=== PATIENT | female | born 1935 | race Caucasian/White ===

== ENCOUNTER → 2022-02-18 | Outpatient (CLI) | payer MEDICARE ==
--- NOTE | 2022-02-18 15:52 | XR ---
EXAMINATION TYPE: XR chest 2V DATE OF EXAM: 02/18/2022 COMPARISON: None INDICATION: Short of breath TECHNIQUE: Frontal and lateral views of the chest are obtained. FINDINGS: The heart size is normal. The pulmonary vasculature is normal. The lungs are clear. IMPRESSION: 1. No acute pulmonary process.
== END | disposition home or self-care (01) ==
LOC: RADXRMAIN 15:33
PROVIDERS: ATTEND Internal Medicine
DX: R06.02 Shortness of breath (principal)
CPT/HCPCS: 71046

== ENCOUNTER 2022-03-08 09:13 | Day surgery (SDC) | payer BC ==
[2022-03-07 11:59] VITALS: BMI 31.4
[~2022-03-08 09:13] MED LIST: LACTATED RINGERS 1,000 ML IV SCH
[2022-03-08 09:43] VITALS: TEMP 97
[2022-03-08] MEDS ORDERED: LIDOCAINE 1% (10MG/ML) FOR IV START INTRADERMA ONE (09:51)
[2022-03-08] MEDS ORDERED: PROPOFOL 10 MG/ML 20 ML VIAL IV ONE (10:37)
[2022-03-08] MEDS ORDERED: LIDOCAINE 2% INJ 20 MG/ML (2 ML VIAL) ONE (10:37)
--- NOTE | 2022-03-08 10:45 | P.PCN ---
Date of Procedure: 03/08/22 Procedure(s) Performed: BRIEF HISTORY: Patient is a 86-year-old, pleasant, white female scheduled for an upper endoscopy as a part of evaluation of intermittent dysphagia to solids for the last 6 months duration. She recently had an upper GI series done that showed evidence of dilated esophagus with esophageal stasis suspicious for esophageal achalasia. She is hence scheduled for an upper endoscopy to evaluate further. PROCEDURE PERFORMED: Esophagogastroduodenoscopy with biopsy. PREOPERATIVE DIAGNOSIS: Intermittent dysphagia to solids for the last 6 months duration. IV sedation per anesthesia. PROCEDURE: After informed consent was obtained, the patient was brought into the endoscopy unit. IV sedation was administered by Anesthesia under continuous monitoring. Initially the Olympus GIF-140 video endoscope was inserted into the mouth. Esophagus intubated without any difficulty. It was gradually advanced into the stomach and duodenum and carefully examined. The bulb and the second part of the duodenum appeared normal. The scope at this time was withdrawn to the stomach, adequately insufflated with air, and upon careful examination, mucosa of the antrum, had mild antral gastritis and biopsies were done from this area. The body, cardia and the fundus appeared normal. The scope was then withdrawn into the esophagus. The GE junction was located at 39 cm from the incisors. Small sliding Hiatal hernia noted. The esophagus appeared normal. There were no evidence of esophageal stricture, erosions or ulcerations seen. Biopsies were done from the distal esophagus and the patient tolerated the procedure well. IMPRESSION: 1. Normal-appearing esophagus with no evidence of esophagitis or esophageal stricture. 2. Small hiatal hernia. 3. Mild antral gastritis RECOMMENDATIONS: The findings of this examination were discussed with the patient as well as a family. She was advised to follow with the biopsy results. She will continue with Protonix 40 mg daily and follow antireflux measures..
[2022-03-08 11:18] VITALS: BP 129/76; PULSE 60; RESP 18
== END 2022-03-08 12:00 | disposition home or self-care (01) ==
LOC: ORWHC2ENDO 09:13
PROVIDERS: ATTEND Internal Medicine Gastroenterology
DX: K29.50 Unspecified chronic gastritis without bleeding (principal); K44.9 Diaphragmatic hernia without obstruction or gangrene; I25.10 Atherosclerotic heart disease of native coronary artery without angina pectoris; I48.91 Unspecified atrial fibrillation; Z79.82 Long term (current) use of aspirin; Z79.01 Long term (current) use of anticoagulants; Z79.899 Other long term (current) drug therapy; Z82.49 Family history of ischemic heart disease and other diseases of the circulatory system; Z95.5 Presence of coronary angioplasty implant and graft
CPT/HCPCS: 43239; J2704; J2001; 88305; 88342

== ENCOUNTER → 2022-03-16 | Outpatient (CLI) | payer MEDICARE ==
[2022-03-17 02:07] LABS: African American GFR (CKD) 53.4 (60.0-200.0); Anion Gap 13.4 mmol/L (10.00-18.00); Blood Urea Nitrogen 19.8 mg/dL (9.0-27.0); Calcium 9.8 mg/dL (8.7-10.3); Carbon Dioxide 30.6 mmol/L (20.0-27.5); Magnesium 2.2 mg/dL (1.5-2.4); Non-African American GFR(CKD) 46.1 (60.0-200.0); Potassium 3.3 mmol/L (3.5-5.5)
== END | disposition home or self-care (01) ==
LOC: LABWHC1 14:12
PROVIDERS: ATTEND Internal Medicine Clinical Cardiac Electrophysiology
DX: I50.9 Heart failure, unspecified (principal)
CPT/HCPCS: 36415; 80048; 83735

== ENCOUNTER 2023-01-18 19:52 | Observation (INO) | payer MEDICARE ==
[2023-01-18 20:57] LABS: Basophils % (A) 0 %; Eosinophils # (A) 0.1 k/uL (0-0.7); Eosinophils % (A) 2 %; HCT 34.4 % (34.0-46.0); HGB 11.5 gm/dL (11.4-16.0); Lymphocytes # (A) 1.4 k/uL (1.0-4.8); Lymphocytes % (A) 21 %; MCH 27.9 pg (25.0-35.0); MCHC 33.4 g/dL (31.0-37.0); MCV 83.6 fL (80.0-100.0); Mean Platelet Volume 6.9; Monocytes # (A) 0.4 k/uL (0-1.0); Monocytes % (A) 6 %; Neutrophils # (A) 4.5 k/uL (1.3-7.7); Neutrophils % (A) 67 %; Platelet Count 381 k/uL (150-450); RBC 4.12 m/uL (3.80-5.40); RDW 15.8 % (11.5-15.5); WBC 6.8 k/uL (3.8-10.6)
[2023-01-18 21:07] LABS: Albumin 3.9 g/dL (3.5-5.0); Calcium 9.4 mg/dL (8.4-10.2); Magnesium 2.1 mg/dL (1.6-2.3); Potassium 4.3 mmol/L (3.5-5.1); Total Bilirubin 0.7 mg/dL (0.2-1.3); Total Protein 6.6 g/dL (6.3-8.2)
--- NOTE | 2023-01-18 21:11 | XR ---
EXAMINATION TYPE: XR chest 2V DATE OF EXAM: 01/18/2023 8:59 PM COMPARISON: Chest radiographs from 10/09/2022 TECHNIQUE: XR chest 2V Frontal and lateral views of the chest. CLINICAL INDICATION:Female, 87 years old with history of dysrhythmia; FINDINGS: Lungs/Pleura: There is flattening of the diaphragm with increased lucency of the lungs. No evidence o f pneumothorax, pleural effusion or focal consolidation. Pulmonary vascularity: Unremarkable. Heart/mediastinum: Cardiomediastinal silhouette is unremarkable. Atherosclerotic calcifications are seen in the aorta. Musculoskeletal: No acute osseous pathology. Mild degenerative changes of the thoracic spine. IMPRESSION: 1. No acute cardiopulmonary disease process. 2. COPD changes.
[2023-01-18 21:13] LABS: Partial Thromboplastin Time 24.1 sec (22.0-30.0); Prothrombin Time 10.2 sec (9.0-12.0)
--- NOTE | 2023-01-18 22:17 | ED ---
Arrhythmia/Palpitations HPI - General Chief Complaint: Arrhythmia/Palpitations Stated Complaint: afib Time Seen by Provider: 01/18/23 20:39 Source: patient, RN notes reviewed, old records reviewed Mode of arrival: wheelchair Limitations: no limitations - History of Present Illness Initial Comments: This is a well-appearing 87-year-old female that presents with complaints of palpitations that started around 6 PM while at dinner. States that her watch was reading a rate of 147 and then dropped to 50. At that time she felt dizzy and lightheaded. She states that she has chronic shortness of breath that is always worse with exertion and improves with rest. She has had 2 histories of ablations 1 year ago in [place] and another one in September of this year with Dr. Feliz. She does take elquis daily. [facility] has seen Dr. Maddox and has had pulmonary causes of her shortness of breath ruled out. Denies any chest pain. No fevers. No cough. No nausea vomiting or diarrhea. MD Complaint: rapid heart beat, palpitations, irregular heart beat, atrial fibrillation -: hour(s) (4) Context: occurred during exertion Arrhythmia History: atrial fibrillation, history of ablation Associated Symptoms: shortness of breath (with exertion) - Related Data Home Medications Medication Instructions Recorded Confirmed Apixaban [Eliquis] 5 mg PO BID 03/07/22 01/18/23 Furosemide [Lasix] 20 mg PO DAILY 03/07/22 01/18/23 Pantoprazole [Protonix] 40 mg PO DAILY 03/07/22 01/18/23 Ezetimibe [Zetia] 10 mg PO HS 09/28/22 01/18/23 Aspirin EC [Ecotrin Low Dose] 81 mg PO DAILY 01/18/23 01/18/23 Furosemide [Lasix] 40 mg PO DAILY PRN 01/18/23 01/18/23 Isosorbide Mononitrate ER [Imdur] 30 mg PO DAILY 01/18/23 01/18/23 Levothyroxine Sodium [Synthroid] 25 mcg PO DAILY 01/18/23 01/18/23 Nitroglycerin Sl Tabs [Nitrostat] 0.4 mg SUBLINGUAL Q5M PRN 01/18/23 01/18/23 Previous Rx's Medication Instructions Recorded Potassium Chloride ER [K-Dur 10] 10 meq PO DAILY 30 Days #30 tab 02/21/23 Allergies Allergy/AdvReac Type Severity Reaction Status Date / Time [id number] Reductase AdvReac muscle Verified 01/18/23 21:15 Inhibitor weakness Review of Systems ROS Statement: Those systems with pertinent positive or pertinent negative responses have been documented in the HPI. ROS Other: All systems not noted in ROS Statement are negative. Past Medical History Past Medical History: Atrial Fibrillation, Hypertension Additional Past Medical History / Comment(s): Hypotension, COVID 04/11 History of Any Multi-Drug Resistant Organisms: None Reported Past Surgical History: Ablation, Cardiac Ablation, Cholecystectomy, Heart Catheterization With Stent, Orthopedic Surgery Additional Past Surgical History / Comment(s): Cardiac Ablation: Jul 2021 Past Anesthesia/Blood Transfusion Reactions: No Reported Reaction Date of Last Stent Placement:: 2013 Past Psychological History: No Psychological Hx Reported Smoking Status: Never smoker Past Alcohol Use History: Rare Past Drug Use History: None Reported - Past Family History Mother Family Medical History: Deep Vein Thrombosis (DVT), Pulmonary Embolus Additional Family Medical History / Comment(s): young at 52 with a "blood clot in the heart" Father Family Medical History: AFIB, Diabetes Mellitus Additional Family Medical History / Comment(s): Lived to be 93 General Exam Limitations: no limitations General appearance: alert, in no apparent distress Head exam: Present: atraumatic Eye exam: Present: normal appearance. Absent: scleral icterus, conjunctival injection, periorbital swelling ENT exam: Present: mucous membranes moist Neck exam: Present: full ROM. Absent: tenderness, meningismus Respiratory exam: Present: normal lung sounds bilaterally. Absent: respiratory distress, chest wall tenderness, accessory muscle use Cardiovascular Exam: Present: tachycardia GI/Abdominal exam: Present: soft. Absent: distended, tenderness, guarding, rebound, rigid Neurological exam: Present: alert, oriented X3 Psychiatric exam: Present: normal affect, normal mood Skin exam: Present: warm, dry, normal color. Absent: cyanosis, diaphoretic, petechiae, pallor Course Vital Signs 01/18/23 01/18/23 01/18/23 20:07 20:45 22:00 Temperature 97.9 F Pulse Rate 108 H 110 H Pulse Rate [ 107 H Heel Sewer ] Respiratory 20 18 Rate Blood Pressure 104/67 129/76 O2 Sat by Pulse 99 98 Oximetry EKG Findings - EKG Comments: EKG Findings:: EKG interpreted by me shows atrial flutter 2-1 with a ventricular rate of 115, QRS 0.83, QTC 0.347, normal axis - EKG Results: EKG: interpreted by [facility] Medical Decision Making - Medical Decision Making Was pt. sent in by a medical professional or institution (, PA, LOCKSTITCH SHOULDER JOINER, urgent care, hospital, or [facility]...) When possible be specific @ -No Did you speak to anyone other than the patient for history (EMS, parent, family, police, friend...)? What history was obtained from this source @ -No Did you review nursing and triage notes (agree or disagree)? Why? @ -I reviewed and agree with nursing and triage notes Were old charts reviewed (outside hosp., previous admission, EMS record, old EKG, old radiological studies, urgent care reports/EKG's, chcf records)? Report findings @ -Old EKG, sales and production manager notes 09/27/2022 for cardiac ablation Differential Diagnosis (chest pain, altered mental status, abdominal pain women, abdominal pain men, vaginal bleeding, weakness, fever, dyspnea, syncope, headache, dizziness, GI bleed, back pain, seizure, CVA, palpatations, mental health, musculoskeletal)? @ -Differential Palpitations Ventricular arrhythmias, atrial arrhythmias, myocardial infarction, anemia, thyrotoxicosis, electrolyte imbalance, hypokalemia, pulmonary embolism, pulmonary disease, drugs, alcohol, anxiety, stress.... This is not meant to be an all-inclusive list. EKG interpreted by me (3pts min.). @ -yes, EKG interpreted by me shows atrial flutter 2-1 with a ventricular rate of 115, QRS 0.83, QTC 0.347, normal axis X-rays interpreted by me (1pt min.). @ -Chest x-ray interpreted by me shows no consolidation. CT interpreted by me (1pt min.). @ -None done U/S interpreted by me (1pt. min.). @ -None done What testing was considered but not performed or refused? (CT, X-rays, U/S, labs)? Why? @ -None What meds were considered but not given or refused? Why? @ -Cardizem was considered however patient's rate is controlled Did you discuss the management of the patient with other professionals (professionals i.e. , PA, LOCKSTITCH SHOULDER JOINER, lab, RT, psych nurse, clinical social worker, on site manager, teacher, fiscal officer, disability case manager)? Give summary @ -No Was smoking cessation discussed for >3mins.? @ -No Was critical care preformed (if so, how long)? @ -No Were there social determinants of health that impacted care today? How? (Homelessness, low income, unemployed, alcoholism, drug addiction, transportation, low edu. Level, literacy, decrease access to med. care, halfway, rehab)? @ -No Was there de-escalation of care discussed even if they declined (Discuss DNR or withdrawal of care, Hospice)? DNR status @ -No What co-morbidities impacted this encounter? (DM, HTN, Smoking, COPD, CAD, Cancer, CVA, ARF, Chemo, Hep., AIDS, mental health diagnosis, sleep apnea, morbid obesity)? @ -Atrial fibrillation, hypertension Was patient admitted / discharged? Hospital course, mention meds given and route, prescriptions, significant lab abnormalities, going to OR and other pertinent info. @ -Admitted 87-year-old female presents with palpitations that started around 6 PM while at dinner. States that her watch was reading a rate of 147 and then dropped to 50. At that time she felt dizzy and lightheaded. She states that she has chronic shortness of breath that is always worse with exertion and improves with rest. She has had 2 histories of ablations 1 year ago in [place] and another one in September of this year with Dr. Feliz. She does take elquis daily. [facility] has seen Dr. Maddox and has had pulmonary causes of her shortness of breath ruled out. Denies any chest pain. No fevers. No cough. No nausea vomiting or diarrhea. Chest x-ray interpreted by me shows no consolidation. Radiologist interpretation no acute cardiopulmonary disease or process. COPD changes. EKG interpreted by me shows atrial flutter 2-1 with a ventricular rate of 115, QRS 0.83, QTC 0.347, normal axis EKG 10/09/2022 shows sinus rhythm Patient underwent ablation with Dr. Feliz 09/27/2022. 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 Labs today show no evidence of leukocytosis. Electrolytes are unremarkable. Tr oponin is negative at 0.012. TSH is normal limits at 4.2 Patient states has had intermittent palpitations while in the emergency room but denies any chest pain or shortness of breath. She is agreeable to observation. Patient will be placed in observation with cardiology consult case discussed with Dr. Ayala Undiagnosed new problem with uncertain prognosis? @ -No Drug Therapy requiring intensive monitoring for toxicity (Heparin, Nitro, In sulin, Cardizem)? @ -No Were any procedures done? @ -No Diagnosis/symptom? @ -Atrial flutter with rapid ventricular rate, shortness of breath Acute, or Chronic, or Acute on Chronic? @ -Acute on chronic Uncomplicated (without systemic symptoms) or Complicated (systemic symptoms)? @ -Uncomplicated Side effects of treatment? @ -No Exacerbation, Progression, or Severe Exacerbation? @ -No Poses a threat to life or bodily function? How? (Chest pain, USA, ME, pneumonia, PE, COPD, DKA, ARF, appy, cholecystitis, CVA, Diverticulitis, Homicidal, Suicidal, threat to staff... and all critical care pts) @ -No - Lab Data Result diagrams: 01/18/23 20:45 01/18/23 20:45 Lab Results 01/18/23 01/18/23 01/18/23 Range/Units 20:45 20:45 20:45 WBC (3.8-10.6) k/uL RBC (3.80-5.40) m/uL Hgb (11.4-16.0) gm/dL Hct (34.0-46.0) % MCV (80.0-100.0) fL MCH (25.0-35.0) pg MCHC (31.0-37.0) g/dL RDW (11.5-15.5) % Plt Count (150-450) k/uL MPV Neutrophils % % Lymphocytes % % Monocytes % % Eosinophils % % Basophils % % Neutrophils # (1.3-7.7) k/uL Lymphocytes # (1.0-4.8) k/uL Monocytes # (0-1.0) k/uL Eosinophils # (0-0.7) k/uL Basophils # (0-0.2) k/uL PT 10.2 (9.0-12.0) sec INR 1.0 (<1.2) APTT 24.1 (22.0-30.0) sec Sodium 134 L (137-145) mmol/L Potassium 4.3 (3.5-5.1) mmol/L Chloride 100 (98-107) mmol/L Carbon Dioxide 22 (22-30) mmol/L Anion Gap 12 mmol/L BUN 21 H (7-17) mg/dL Creatinine 0.98 (0.52-1.04) mg/dL Est GFR (CKD-EPI)AfAm 61 (>60 ml/min/1.73 sqM) Est GFR (CKD-EPI)NonAf 53 (>60 ml/min/1.73 sqM) Glucose 108 H (74-99) mg/dL Calcium 9.4 (8.4-10.2) mg/dL Magnesium 2.1 (1.6-2.3) mg/dL Total Bilirubin 0.7 (0.2-1.3) mg/dL AST 27 (14-36) U/L ALT 21 (4-34) U/L Alkaline Phosphatase 114 (38-126) U/L Troponin I <0.012 (0.000-0.034) ng/mL Total Protein 6.6 (6.3-8.2) g/dL Albumin 3.9 (3.5-5.0) g/dL TSH 4.200 (0.465-4.680) mIU/L 01/18/23 Range/Units 20:45 WBC 6.8 (3.8-10.6) k/uL RBC 4.12 (3.80-5.40) m/uL Hgb 11.5 (11.4-16.0) gm/dL Hct 34.4 (34.0-46.0) % MCV 83.6 (80.0-100.0) fL MCH 27.9 (25.0-35.0) pg MCHC 33.4 (31.0-37.0) g/dL RDW 15.8 H (11.5-15.5) % Plt Count 381 (150-450) k/uL MPV 6.9 Neutrophils % 67 % Lymphocytes % 21 % Monocytes % 6 % Eosinophils % 2 % Basophils % 0 % Neutrophils # 4.5 (1.3-7.7) k/uL Lymphocytes # 1.4 (1.0-4.8) k/uL Monocytes # 0.4 (0-1.0) k/uL Eosinophils # 0.1 (0-0.7) k/uL Basophils # 0.0 (0-0.2) k/uL PT (9.0-12.0) sec INR (<1.2) APTT (22.0-30.0) sec Sodium (137-145) mmol/L Potassium (3.5-5.1) mmol/L Chloride (98-107) mmol/L Carbon Dioxide (22-30) mmol/L Anion Gap mmol/L BUN (7-17) mg/dL Creatinine (0.52-1.04) mg/dL Est GFR (CKD-EPI)AfAm (>60 ml/min/1.73 sqM) Est GFR (CKD-EPI)NonAf (>60 ml/min/1.73 sqM) Glucose (74-99) mg/dL Calcium (8.4-10.2) mg/dL Magnesium (1.6-2.3) mg/dL Total Bilirubin (0.2-1.3) mg/dL AST (14-36) U/L ALT (4-34) U/L Alkaline Phosphatase (38-126) U/L Troponin I (0.000-0.034) ng/mL Total Protein (6.3-8.2) g/dL Albumin (3.5-5.0) g/dL TSH (0.465-4.680) mIU/L Disposition Clinical Impression: Atrial flutter, Palpitations, Shortness of breath on exertion Disposition: ADMITTED IP TO THIS HOSP Decision Date: 01/19/23
[2023-01-18] MEDS ORDERED: NALOXONE 0.4 MG/ML 1 ML VIAL IV PRN (22:24)
[2023-01-18] MEDS ORDERED: ACETAMINOPHEN TAB 325 MG TAB PO PRN (22:24)
[2023-01-18] MEDS ORDERED: FUROSEMIDE 40 MG TAB PO PRN (22:26)
[2023-01-18] MEDS ORDERED: NITROGLYCERIN SL TABS 0.4 MG TAB SUBLINGUAL PRN (22:26)
[2023-01-19] MEDS: LEVOTHYROXINE 25 MCG TAB PO SCH (06:36)
[2023-01-19] MEDS: PANTOPRAZOLE 40 MG TABLET PO SCH (06:36)
[2023-01-19] MEDS: POTASSIUM CHLORIDE ER 10 MEQ TAB.ER.PRT PO SCH (08:32)
[2023-01-19] MEDS: ASPIRIN 81 MG PO SCH (08:32)
[2023-01-19] MEDS: FUROSEMIDE 20 MG TAB PO SCH (08:32)
[2023-01-19] MEDS: APIXABAN 5 MG TAB PO SCH ×2 (08:32→21:06)
[2023-01-19] MEDS ORDERED: ISOSORBIDE MONONITRATE ER 30 MG TAB.ER.24H PO SCH (09:00)
--- NOTE | 2023-01-19 10:52 | P.CRDCN ---
History of Present Illness History of present illness: HISTORY OF PRESENT ILLNESS: This is a 87-year-old female with a past medical history significant for atrial fibrillation with previous ablation, atrial tachycardia ablation in September 2022, pulmonary embolism, valvular heart disease, coronary artery disease with previous stenting, and chronic shortness of breath. Patient follows in the office with Dr. Soto. We have been asked to see the patient in consultation for atrial flutter. Patient examined at the bedside. Patient presented to the hospital after noticing her heart rate was high on her watch. She states initially yesterday she did not have any palpitations however after checking her heart rate on her watch she did begin to have some palpitations. She denied any chest pain or pressure. She reports chronic shortness of breath of unknown etiology. She states her shortness of breath is not worse than her baseline. EKG completed this morning reveals atrial tachycardia with a heart rate of 110. The patient is not on any AV enmanuel blocking agents on an outpatient basis. She believes she was on these at one time but is unsure of the reason that there were discontinued. * EKG reveals atrial tachycardia. * Chest xray COPD changes. No acute cardiopulmonary disease. * Laboratory data: WBC 6.8. Hemoglobin 11.5. Platelet count 381. Sodium 134. Potassium 4.3. BUN 21. Creatinine 0.98. * Current home cardiac medications include Lasix 20 mg daily, aspirin 81 mg daily, Imdur 30 mg daily, Zetia 10 mg at night, Lasix 40 mg daily as needed, and Eliquis 5mg BID * Patient underwent FRANCISCA at [facility] in October 2022 revealing ejection fraction 60%, trace aortic regurgitation, mild mitral regurgitation, mild tricuspid regurgitation * Patient underwent cardiac catheterization in October 2022 at [facility] revealing patent stent in the LAD. OM 1 and 2 with severe disease otherwise nonobstruc tive coronary artery disease. Medical management was recommended. * Most recent echocardiogram obtained in September 2022 reveals ejection fraction 55-60%, severe MR, mild AR, severe TR and moderate to severe pulmonary hypertension REVIEW OF SYSTEMS: At the time of my exam: CONSTITUTIONAL: Denies fever or chills. HEENT: Denies blurred vision, vision changes, or eye pain. Denies hemoptysis CARDIOVASCULAR: Denies chest pain. Denies orthopnea. Denies PND. Denies p alpitations RESPIRATORY: Reports chronic shortness of breath. GASTROINTESTINAL: Denies abdominal pain. Denies nausea or vomiting. HEMATOLOGIC: Denies bleeding disorders. GENITOURINARY: Denies any blood in urine. SKIN: Denies pruitis. Denies rash. PHYSICAL EXAM: VITAL SIGNS: Reviewed. GENERAL: Well-developed in no acute distress. HEENT: Head is normocephalic. Pupils are equal, round. Sclerae anicteric. Mucous membranes of the mouth are moist. Neck supple. No JVD or thyromegaly LUNGS: Respirations even and unlabored. Lungs essentially clear to auscultation bilaterally. HEART: Tachycardic. Regular rate and rhythm. S1 and S2 heard. Systolic murmur noted ABDOMEN: Soft. Nondistended. Nontender. EXTREMITIES: Normal range of motion. No clubbing or cyanosis. Peripheral pulses intact. No lower extremity edema NEUROLOGIC: Awake and alert. Oriented x 3. ASSESSMENT: Palpitations Atrial tachycardia with RVR Coronary artery disease with previous stenting to the LAD Valvular heart disease History of atrial tachycardia ablation, September 2022 History of atrial fibrillation with previous ablation History of pulmonary embolism Chronic shortness of breath PLAN: Resume home cardiac medications Begin metoprolol tartrate 12.5 mg twice a day Continue telemetry to monitor Patient to be discharged home this afternoon if her heart rates are controlled and follow-up in the office Nurse practitioner note has been reviewed by physician. Signing provider agrees with the documented findings, assessment, and plan of care. Past Medical History Past Medical History: Atrial Fibrillation, Hypertension Additional Past Medical History / Comment(s): Hypotension, COVID 04/11 History of Any Multi-Drug Resistant Organisms: None Reported Past Surgical History: Ablation, Cardiac Ablation, Cholecystectomy, Heart Catheterization With Stent, Orthopedic Surgery Additional Past Surgical History / Comment(s): Cardiac Ablation: Jul 2021 Past Anesthesia/Blood Transfusion Reactions: No Reported Reaction Date of Last Stent Placement:: 2013 Past Psychological History: No Psychological Hx Reported Smoking Status: Never smoker Past Alcohol Use History: Rare Past Drug Use History: None Reported - Past Family History Mother Family Medical History: Deep Vein Thrombosis (DVT), Pulmonary Embolus Additional Family Medical History / Comment(s): young at 52 with a "blood clot in the heart" Father Family Medical History: AFIB, Diabetes Mellitus Additional Family Medical History / Comment(s): Lived to be 93 Medications and Allergies Home Medications Medication Instructions Recorded Confirmed Type Apixaban [Eliquis] 5 mg PO BID 03/07/22 01/18/23 History Furosemide [Lasix] 20 mg PO DAILY 03/07/22 01/18/23 History Pantoprazole [Protonix] 40 mg PO DAILY 03/07/22 01/18/23 History Ezetimibe [Zetia] 10 mg PO HS 09/28/22 01/18/23 History Potassium Chloride ER [K-Dur 10] 10 meq PO DAILY 30 Days #30 tab 10/11/22 01/18/23 Rx Aspirin EC [Ecotrin Low Dose] 81 mg PO DAILY 01/18/23 01/18/23 History Furosemide [Lasix] 40 mg PO DAILY PRN 01/18/23 01/18/23 History Isosorbide Mononitrate ER [Imdur] 30 mg PO DAILY 01/18/23 01/18/23 History Levothyroxine Sodium [Synthroid] 25 mcg PO DAILY 01/18/23 01/18/23 History Nitroglycerin Sl Tabs [Nitrostat] 0.4 mg SUBLINGUAL Q5M PRN 01/18/23 01/18/23 History Allergies Allergy/AdvReac Type Severity Reaction Status Date / Time [id number] Reductase AdvReac muscle Verified 01/18/23 21:15 Inhibitor weakness Physical Exam Vitals: Vital Signs Temp Pulse Pulse Resp BP BP Pulse Ox 01/19/23 08:11 95 01/19/23 08:00 111 H 16 97/65 97 01/19/23 05:34 97.4 F L 109 H 20 95/65 95 01/19/23 00:15 97.6 F 109 H 20 113/75 96 01/18/23 22:00 110 H 18 129/76 98 01/18/23 20:45 107 H 01/18/23 20:07 97.9 F 108 H 20 104/67 99 Intake and Output 01/18/23 01/19/23 01/19/23 22:59 06:59 14:59 Other: # Voids 1 Weight 81.647 kg 81.647 kg Results 01/18/23 20:45 01/18/23 20:45 Cardiac Enzymes 01/18/23 01/18/23 Range/Units 20:45 20:45 AST 27 (14-36) U/L Troponin I <0.012 (0.000-0.034) ng/mL Coagulation 01/18/23 Range/Units 20:45 PT 10.2 (9.0-12.0) sec APTT 24.1 (22.0-30.0) sec CBC 01/18/23 Range/Units 20:45 WBC 6.8 (3.8-10.6) k/uL RBC 4.12 (3.80-5.40) m/uL Hgb 11.5 (11.4-16.0) gm/dL Hct 34.4 (34.0-46.0) % Plt Count 381 (150-450) k/uL Comprehensive Metabolic Panel 01/18/23 Range/Units 20:45 Sodium 134 L (137-145) mmol/L Potassium 4.3 (3.5-5.1) mmol/L Chloride 100 (98-107) mmol/L Carbon Dioxide 22 (22-30) mmol/L BUN 21 H (7-17) mg/dL Creatinine 0.98 (0.52-1.04) mg/dL Glucose 108 H (74-99) mg/dL Calcium 9.4 (8.4-10.2) mg/dL AST 27 (14-36) U/L ALT 21 (4-34) U/L Alkaline Phosphatase 114 (38-126) U/L Total Protein 6.6 (6.3-8.2) g/dL Albumin 3.9 (3.5-5.0) g/dL Current Medications Generic Name Dose Route Start Last Admin Trade Name Freq PRN Reason Stop Dose Admin Acetaminophen 650 mg 01/18/23 22:24 Acetaminophen Tab 325 Mg Tab PO Q6HR PRN Mild Pain or Fever > 100.5 Apixaban 5 mg 01/19/23 09:00 01/19/23 08:32 Apixaban 5 Mg Tab PO 5 mg BID DAMION Administration Protocol Aspirin 81 mg 01/19/23 09:00 01/19/23 08:32 Aspirin 81 Mg PO 81 mg DAILY DAMION Administration Ezetimibe 10 mg 01/19/23 21:00 Ezetimibe 10 Mg Tab PO HS DAMION Furosemide 20 mg 01/19/23 09:00 01/19/23 08:32 Furosemide 20 Mg Tab PO 20 mg DAILY DAMION Administration Furosemide 40 mg 01/18/23 22:26 Furosemide 40 Mg Tab PO DAILY PRN Edema Isosorbide Mononitrate 30 mg 01/19/23 09:00 01/19/23 08:32 Isosorbide Mononitrate Er 30 Mg Tab.Er.24h PO 30 mg DAILY DAMION Administration Levothyroxine Sodium 25 mcg 01/19/23 06:30 01/19/23 06:36 Levothyroxine 25 Mcg Tab PO 25 mcg DAILY@0630 DAMION Administration Metoprolol Tartrate 12.5 mg 01/19/23 09:00 Metoprolol Tartrate 12.5 Mg Tab PO BID DAMOIN Naloxone HCl 0.2 mg 01/18/23 22:24 Naloxone 0.4 Mg/Ml 1 Ml Vial IV Q2M PRN Opioid Reversal Nitroglycerin 0.4 mg 01/18/23 22:26 Nitroglycerin Sl Tabs 0.4 Mg Tab SUBLINGUAL Q5M PRN Chest Pain Pantoprazole Sodium 40 mg 01/19/23 07:30 01/19/23 06:36 Pantoprazole 40 Mg Tablet PO 40 mg [id number]-[id number] DAMION Administration Potassium Chloride 10 meq 01/19/23 09:00 01/19/23 08:32 Potassium Chloride Er 10 Meq Tab.Er.Prt PO 10 meq DAILY DAMION Administration Intake and Output 01/18/23 01/19/23 01/19/23 22:59 06:59 14:59 Other: # Voids 1 Weight 81.647 kg 81.647 kg 01/18/23 20:45 01/18/23 20:45
--- NOTE | 2023-01-19 11:13 | CA ---
Transthoracic Echo Report Name: Sydni Kemp Age: 87 Gender: F : 1935 Exam Date: 01/19/2023 09:40 Exam Location: [place] [facility] Ht (in): 65.5 Wt (lb): 180 Ordering Physician: Regan James MD Attending/Referring Phys: Hospice Liaison Olya Rao RDCS Procedure CPT: Indications: Arrythmia Cardiac Hx: Technical Quality: Fair Contrast 1: Total Dose (mL): Contrast 2: Total Dose (mL): MEASUREMENTS (Male / Female) Normal Values 2D ECHO LV Diastolic Diameter PLAX 4.1 cm 4.2 - 5.9 / 3.9 - 5.3 cm LV Systolic Diameter PLAX 3.7 cm IVS Diastolic Thickness 1.3 cm 0.6 - 1.0 / 0.6 - 0.9 cm LVPW Diastolic Thickness 1.2 cm 0.6 - 1.0 / 0.6 - 0.9 cm LV Relative Wall Thickness 0.6 RV Internal Dim ED PLAX 3.0 cm LA Systolic Diameter LX 3.6 cm 3.0 - 4.0 / 2.7 - 3.8 cm LV Diastolic Volume MOD 4C 55.5 cm??? LV Systolic Volume MOD 4C 35.9 cm??? LV Ejection Fraction MOD 4C 35.3 % LV Diastolic Length 4C 6.8 cm LV Systolic Length 4C 5.8 cm LV Diastolic Volume MOD 2C 62.6 cm??? LV Systolic Volume MOD 2C 35.1 cm??? LV Ejection Fraction MOD 2C 43.9 % LV Diastolic Length 2C 6.7 cm LV Systolic Length 2C 5.9 cm LA Volume 52.4 cm??? 18 - 58 / 22 - 52 cm??? M-MODE Aortic Root Diameter MM 3.3 cm MV E Point Septal Separation 0.2 cm DOPPLER AV Peak Velocity 103.9 cm/s AV Peak Gradient 4.3 mmHg AI Peak Velocity 279.6 cm/s AI Peak Gradient 31.3 mmHg AI Pressure Half Time 460.1 ms MV Area PHT 5.7 cm??? MV Deceleration Time 124.0 ms TR Peak Velocity 189.3 cm/s TR Peak Gradient 14.3 mmHg Right Ventricular Systolic Press 18.9 mmHg FINDINGS Left Ventricle Left ventricular ejection fraction is estimated at -45 %. Left ventricular cavity size normal. Moderately increased septal wall thickness. Mildly increased posterior wall thickness. Right Ventricle Normal right ventricular size and function. Right ventricular systolic pressure within normal limits. Right Atrium Normal right atrial size. Left Atrium Mildly increased left atrial area. Mitral Valve Structurally normal mitral valve. No mitral stenosis, regurgitation or prolapse. Aortic Valve Trileaflet aortic valve. No aortic stenosis. Mild aortic regurgitation. Tricuspid Valve Structurally normal tricuspid valve. Trace to mild tricuspid regurgitation. Pulmonic Valve Pulmonic valve not well visualized. Pericardium No pericardial effusion.normal pericardium. Aorta Normal size aortic root and proximal ascending aorta. CONCLUSIONS Mild LV systolic dysfunction with an ejection fraction of 45% Mild aortic regurgitation Previewed by: Dr. Jareth Bautista MD (Electronically Signed) Final Date: 19 January 2023 11:12
[2023-01-19] MEDS: METOPROLOL TARTRATE 12.5 MG TAB PO SCH ×2 (11:40→21:06)
--- NOTE | 2023-01-19 17:20 | P.HPIM ---
History of Present Illness H&P Date: 01/19/23 Sydni Kemp, is an 87-year-old female who presented to [facility] emergency room with a chief complaint of palpitation and tachycardia. Patient also has chronic shortness of breath. She was evaluated in the emergency room vital examination on presentation revealed a temperature of 97.9 pulse 108 respiration 20 blood pressure 104/67 pulse ox 99% on room air Laboratory data revealed a white blood count of 6.8 hemoglobin 11.5 platelet count 381 sodium 134 potassium 4.3 chloride 100 CO2 22 BUN 21 creatinine 0.98 troponin level less than 0.012 Testing in the emergency room revealed chest x-ray done in the emergency room revealed no acute cardiopulmonary disease process, with changes suggestive of COPD EKG done in the emergency room revealed atrial tachycardia with rapid vent ricular response Patient was admitted to medical floor for further evaluation and treatment, cardiology consultation was requested Past medical history is significant for history of coronary artery disease with previous history of angioplasty and stent placement to the LAD, history of atrial fibrillation with history of ablation, history of pulmonary embolism, history of hypertension, history of hyperlipidemia, previous history of atrial tachycardia On review of systems patient is alert and oriented 3 in no apparent distress she is complaining of palpitation and shortness of breath otherwise she denies any complaints there is no fever or chills no headache or dizziness no chest pain no cough no nausea or vomiting no abdominal pain no diarrhea no blood in the stools no burning with urination no frequency or urgency no hematuria. Past Medical History Past Medical History: Atrial Fibrillation, Hypertension Additional Past Medical History / Comment(s): Hypotension, COVID 04/11 History of Any Multi-Drug Resistant Organisms: None Reported Past Surgical History: Ablation, Cardiac Ablation, Cholecystectomy, Heart Catheterization With Stent, Orthopedic Surgery Additional Past Surgical History / Comment(s): Cardiac Ablation: Jul 2021 Past Anesthesia/Blood Transfusion Reactions: No Reported Reaction Date of Last Stent Placement:: 2013 Past Psychological History: No Psychological Hx Reported Smoking Status: Never smoker Past Alcohol Use History: Rare Past Drug Use History: None Reported - Past Family History Mother Family Medical History: Deep Vein Thrombosis (DVT), Pulmonary Embolus Additional Family Medical History / Comment(s): young at 52 with a "blood clot in the heart" Father Family Medical History: AFIB, Diabetes Mellitus Additional Family Medical History / Comment(s): Lived to be 93 Medications and Allergies Home Medications Medication Instructions Recorded Confirmed Type Apixaban [Eliquis] 5 mg PO BID 03/07/22 01/18/23 History Furosemide [Lasix] 20 mg PO DAILY 03/07/22 01/18/23 History Pantoprazole [Protonix] 40 mg PO DAILY 03/07/22 01/18/23 History Ezetimibe [Zetia] 10 mg PO HS 09/28/22 01/18/23 History Potassium Chloride ER [K-Dur 10] 10 meq PO DAILY 30 Days #30 tab 10/11/22 01/18/23 Rx Aspirin EC [Ecotrin Low Dose] 81 mg PO DAILY 01/18/23 01/18/23 History Furosemide [Lasix] 40 mg PO DAILY PRN 01/18/23 01/18/23 History Isosorbide Mononitrate ER [Imdur] 30 mg PO DAILY 01/18/23 01/18/23 History Levothyroxine Sodium [Synthroid] 25 mcg PO DAILY 01/18/23 01/18/23 History Nitroglycerin Sl Tabs [Nitrostat] 0.4 mg SUBLINGUAL Q5M PRN 01/18/23 01/18/23 History Allergies Allergy/AdvReac Type Severity Reaction Status Date / Time [id number] Reductase AdvReac muscle Verified 01/18/23 21:15 Inhibitor weakness Physical Exam Vitals: Vital Signs Temp Pulse Pulse Resp BP BP Pulse Ox 01/19/23 08:11 95 01/19/23 08:00 111 H 16 97/65 97 01/19/23 05:34 97.4 F L 109 H 20 95/65 95 01/19/23 00:15 97.6 F 109 H 20 113/75 96 01/18/23 22:00 110 H 18 129/76 98 01/18/23 20:45 107 H 01/18/23 20:07 97.9 F 108 H 20 104/67 99 Intake and Output 01/18/23 01/19/23 01/19/23 22:59 06:59 14:59 Other: # Voids 1 Weight 81.647 kg 81.647 kg In general patient is alert and oriented x 3 in no distress HEENT head normocephalic and atraumatic Neck is supple no JVD no goiter no lymphadenopathy no carotid bruit Chest examination is clear to auscultation no crackles no wheezing Cardiac exam reveals irregular heart sounds S1 and S2 no gallops no murmurs Abdomen is soft nontender no organomegaly with normal bowel sounds Extremity exam reveals no edema no cyanosis or clubbing Neurological examination reveals no gross focal deficits Results CBC & Chem 7: 01/18/23 20:45 01/18/23 20:45 Labs: Abnormal Lab Results - Last 24 Hours (Table) 01/18/23 01/18/23 Range/Units 20:45 20:45 RDW 15.8 H (11.5-15.5) % Sodium 134 L (137-145) mmol/L BUN 21 H (7-17) mg/dL Glucose 108 H (74-99) mg/dL Thrombosis Risk Factor Assmnt - Choose All That Apply Each Risk Factor Represents 3 Points: Age 75 years or older Other congenital or acquired thrombophilia - If yes, enter type in comment: No Thrombosis Risk Factor Assessment Total Risk Factor Score: 3 Thrombosis Risk Factor Assessment Level: Moderate Risk Assessment and Plan Plan: Atrial tachycardia with rapid ventricular response Palpitation on presentation to emergency room Underlying history of coronary artery disease with history of angioplasty and stent placement to the LAD Underlying history of atrial fibrillation with previous history of ablation Previous history of pulmonary embolism History of chronic shortness of breath At this time patient is admitted to telemetry floor Cardiology consultation was requested echocardiogram ordered Home medications reviewed and reordered Will follow closely
[2023-01-19] MEDS: EZETIMIBE 10 MG TAB PO SCH (21:06)
[2023-01-20] MEDS: LEVOTHYROXINE 25 MCG TAB PO SCH (06:36)
[2023-01-20] MEDS: PANTOPRAZOLE 40 MG TABLET PO SCH (06:36)
[2023-01-20] MEDS: ASPIRIN 81 MG PO SCH (08:40)
[2023-01-20] MEDS: FUROSEMIDE 20 MG TAB PO SCH (08:41)
[2023-01-20] MEDS: METOPROLOL TARTRATE 12.5 MG TAB PO SCH ×2 (08:41→20:25)
[2023-01-20] MEDS: POTASSIUM CHLORIDE ER 10 MEQ TAB.ER.PRT PO SCH (08:41)
[2023-01-20] MEDS: APIXABAN 5 MG TAB PO SCH ×2 (08:41→20:25)
[2023-01-20 08:49] LABS: Basophils % (A) 0 %; Eosinophils # (A) 0.2 k/uL (0-0.7); Eosinophils % (A) 4 %; HCT 38.8 % (34.0-46.0); HGB 12.6 gm/dL (11.4-16.0); Lymphocytes # (A) 1.6 k/uL (1.0-4.8); Lymphocytes % (A) 27 %; MCH 27.9 pg (25.0-35.0); MCHC 32.4 g/dL (31.0-37.0); MCV 86.1 fL (80.0-100.0); Monocytes # (A) 0.5 k/uL (0-1.0); Monocytes % (A) 9 %; Neutrophils # (A) 3.3 k/uL (1.3-7.7); Neutrophils % (A) 57 %; Platelet Count 406 k/uL (150-450); RBC 4.51 m/uL (3.80-5.40); RDW 15.8 % (11.5-15.5); WBC 5.8 k/uL (3.8-10.6)
[2023-01-20 09:13] LABS: Albumin 3.8 g/dL (3.5-5.0); Calcium 9.1 mg/dL (8.4-10.2); Total Bilirubin 0.8 mg/dL (0.2-1.3); Total Protein 6.7 g/dL (6.3-8.2)
--- NOTE | 2023-01-20 09:45 | P.PN ---
Subjective Progress Note Date: 01/20/23 Sydni Kemp, is an 87-year-old female who presented to [facility] emergency room with a chief complaint of palpitation and tachycardia. Patient also has chronic shortness of breath. She was evaluated in the emergency room vital examination on presentation revealed a temperature of 97.9 pulse 108 respiration 20 blood pressure 104/67 pulse ox 99% on room air Laboratory data revealed a white blood count of 6.8 hemoglobin 11.5 platelet count 381 sodium 134 potassium 4.3 chloride 100 CO2 22 BUN 21 creatinine 0.98 troponin level less than 0.012 Testing in the emergency room revealed chest x-ray done in the emergency room revealed no acute cardiopulmonary disease process, with changes suggestive of COPD EKG done in the emergency room revealed atrial tachycardia with rapid ventricular response Patient was admitted to medical floor for further evaluation and treatment, cardiology consultation was requested Past medical history is significant for history of coronary artery disease with previous history of angioplasty and stent placement to the LAD, history of atrial fibrillation with history of ablation, history of pulmonary embolism, history of hypertension, history of hyperlipidemia, previous history of atrial tachycardia On review of systems patient is alert and oriented 3 in no apparent distress she is complaining of palpitation and shortness of breath otherwise she denies any complaints there is no fever or chills no headache or dizziness no chest pain no cough no nausea or vomiting no abdominal pain no diarrhea no blood in the stools no burning with urination no frequency or urgency no hematuria. On 01/20/2023 patient is alert and oriented 3. Patient still complaining of elevated heart rate with low blood pressure. Patient Metroprolol yesterday. Current vital signs temp 97.9 heart rate 113, blood pressure 94/67 pulse ox 96% on room air. Patient also reports ongoing shortness of breath with does sound like a chronic issue for patient. Will discuss with cardiology services to further assess medication. At this time patient denies chest pain or shortness breath. Patient denies nausea vomiting or diarrhea. Patient denies any urinary burning or frequency Objective - Vital Signs Vital signs: Vital Signs Temp 97.9 F 01/20/23 08:00 Pulse 110 H 01/20/23 08:00 Resp 20 01/20/23 08:00 BP 94/57 01/20/23 08:46 Pulse Ox 96 01/20/23 08:00 FiO2 Intake & Output 01/19/23 01/20/23 01/20/23 18:59 06:59 18:59 Intake Total 90 600 Balance 90 600 Intake: Oral 90 600 Other: # Voids 1 1 - Exam In general patient is alert and oriented x 3 in no distress HEENT head normocephalic and atraumatic Neck is supple no JVD no goiter no lymphadenopathy no carotid bruit Chest examination is clear to auscultation no crackles no wheezing Cardiac exam reveals irregular heart sounds S1 and S2 no gallops no murmurs Abdomen is soft nontender no organomegaly with normal bowel sounds Extremity exam reveals no edema no cyanosis or clubbing Neurological examination reveals no gross focal deficits - Labs CBC & Chem 7: 01/20/23 07:21 01/20/23 07:21 Labs: Abnormal Lab Results - Last 24 Hours (Table) 01/20/23 01/20/23 Range/Units 07:21 07:21 RDW 15.8 H (11.5-15.5) % BUN 19 H (7-17) mg/dL Creatinine 1.10 H (0.52-1.04) mg/dL Assessment and Plan Plan: Atrial tachycardia with rapid ventricular response Palpitation on presentation to emergency room Underlying history of coronary artery disease with history of angioplasty and stent placement to the LAD Underlying history of atrial fibrillation with previous history of ablation Previous history of pulmonary embolism History of chronic shortness of breath At this time patient is admitted to telemetry floor Cardiology consultation was requested echocardiogram ordered Home medications reviewed and reordered Will follow closely
--- NOTE | 2023-01-20 10:51 | P.PN ---
Subjective HISTORY OF PRESENT ILLNESS: This is a 87-year-old female with a past medical history significant for atrial fibrillation with previous ablation, atrial tachycardia ablation in September 2022, pulmonary embolism, valvular heart disease, coronary artery disease with previous stenting, and chronic shortness of breath. Patient follows in the office with Dr. Soto. We have been asked to see the patient in consultation for atrial flutter. Patient examined at the bedside. Patient presented to the hospital after noticing her heart rate was high on her watch. She states initially yesterday she did not have any palpitations however after checking her heart rate on her watch she did begin to have some palpitations. She denied any chest pain or pressure. She reports chronic shortness of breath of unknown etiology. She states her shortness of breath is not worse than her baseline. EKG completed this morning reveals atrial tachycardia with a heart rate of 110. The patient is not on any AV enmanuel blocking agents on an outpatient basis. She believes she was on these at one time but is unsure of the reason that there were discontinued. * EKG reveals atrial tachycardia. * Chest xray COPD changes. No acute cardiopulmonary disease. * Laboratory data: WBC 6.8. Hemoglobin 11.5. Platelet count 381. Sodium 134. Potassium 4.3. BUN 21. Creatinine 0.98. * Current home cardiac medications include Lasix 20 mg daily, aspirin 81 mg daily, Imdur 30 mg daily, Zetia 10 mg at night, Lasix 40 mg daily as needed, and Eliquis 5mg BID * Patient underwent FRANCISCA at [facility] in October 2022 revealing ejection fraction 60%, trace aortic regurgitation, mild mitral regurgitation, mild tricuspid regurgitation * Patient underwent cardiac catheterization in October 2022 at [facility] revealing patent stent in the LAD. OM 1 and 2 with severe disease otherwise nonobstructive coronary artery disease. Medical management was recommended. * Most recent echocardiogram obtained in September 2022 reveals ejection fraction 55-60%, severe MR, mild AR, severe TR and moderate to severe pulmonary hypertension 01/20/2023 Patient examined this morning at the bedside. She denies chest pain or pressure. She reports shortness of breath which is chronic and at her baseline. She reports dizziness and lightheadedness upon ambulation. Orthostatic blood pressures remain positive. Patient's Imdur was discontinued yesterday. Telemetry reveals atrial tachycardia with heart rate of 106 this morning. Echocardiogram completed revealing ejection fraction 45% with mild AR. PHYSICAL EXAM: VITAL SIGNS: Reviewed. GENERAL: Well-developed in no acute distress. HEENT: Head is normocephalic. Pupils are equal, round. Sclerae anicteric. Mucous membranes of the mouth are moist. Neck supple. No JVD or thyromegaly LUNGS: Respirations even and unlabored. Lungs essentially clear to auscultation bilaterally. HEART: Tachycardic. Regular rate and rhythm. S1 and S2 heard. Systolic murmur noted ABDOMEN: Soft. Nondistended. Nontender. EXTREMITIES: Normal range of motion. No clubbing or cyanosis. Peripheral pulses intact. No lower extremity edema NEUROLOGIC: Awake and alert. Oriented x 3. ASSESSMENT: Palpitations Atrial tachycardia with RVR Coronary artery disease with previous stenting to the LAD Valvular heart disease History of atrial tachycardia ablation, September 2022 History of atrial fibrillation with previous ablation History of pulmonary embolism Chronic shortness of breath PLAN: Continue current cardiac medications Continue current dose of metoprolol Patient encouraged to drink oral fluids to stay hydrated and wear compression stockings Patient also instructed to change positions slowly secondary to OH Add oral amio 400mg BID If rates remain elevated, will consider cardioversion Further recommendations pending patient course Nurse practitioner note has been reviewed by physician. Signing provider agrees with the documented findings, assessment, and plan of care. Objective - Vital Signs Vital signs: Vital Signs Temp 97.9 F 01/20/23 08:00 Pulse 110 H 01/20/23 08:00 Resp 20 01/20/23 08:00 BP 94/57 01/20/23 08:46 Pulse Ox 96 01/20/23 08:00 FiO2 Intake & Output 01/19/23 01/20/23 01/20/23 18:59 06:59 18:59 Intake Total 90 600 Balance 90 600 Intake: Oral 90 600 Other: # Voids 1 1 - Labs CBC & Chem 7: 01/20/23 07:21 01/20/23 07:21 Labs: Abnormal Lab Results - Last 24 Hours (Table) 01/20/23 01/20/23 Range/Units 07:21 07:21 RDW 15.8 H (11.5-15.5) % BUN 19 H (7-17) mg/dL Creatinine 1.10 H (0.52-1.04) mg/dL
[2023-01-20] MEDS: AMIODARONE 200 MG TAB PO SCH ×2 (12:28→20:25)
--- NOTE | 2023-01-20 13:00 | P.PN ---
Progress Note - Text Progress Note Date: 01/20/23 This is an addendum to my previous note today Patient was seen and examined on the telemetry floor, she is still having hypotension and tachycardia She was evaluated today by cardiology, amiodarone was added to her medication regimen If heart rate does not improve plan per cardiology is to proceed with cardioversion
[2023-01-20] MEDS: EZETIMIBE 10 MG TAB PO SCH (20:25)
[2023-01-21] MEDS: PANTOPRAZOLE 40 MG TABLET PO SCH (06:30)
[2023-01-21] MEDS: LEVOTHYROXINE 25 MCG TAB PO SCH (06:30)
[2023-01-21] MEDS: ASPIRIN 81 MG PO SCH (08:57)
[2023-01-21] MEDS: METOPROLOL TARTRATE 12.5 MG TAB PO SCH ×2 (08:57→20:32)
[2023-01-21] MEDS: APIXABAN 5 MG TAB PO SCH ×2 (08:57→20:32)
[2023-01-21] MEDS: POTASSIUM CHLORIDE ER 10 MEQ TAB.ER.PRT PO SCH (08:57)
[2023-01-21] MEDS: FUROSEMIDE 20 MG TAB PO SCH (08:57)
[2023-01-21] MEDS: AMIODARONE 200 MG TAB PO SCH ×2 (08:57→20:32)
--- NOTE | 2023-01-21 14:10 | P.PN ---
Subjective Progress Note Date: 01/21/23 Sydni Kemp, is an 87-year-old female who presented to [facility] emergency room with a chief complaint of palpitation and tachycardia. Patient also has chronic shortness of breath. She was evaluated in the emergency room vital examination on presentation revealed a temperature of 97.9 pulse 108 respiration 20 blood pressure 104/67 pulse ox 99% on room air Laboratory data revealed a white blood count of 6.8 hemoglobin 11.5 platelet count 381 sodium 134 potassium 4.3 chloride 100 CO2 22 BUN 21 creatinine 0.98 troponin level less than 0.012 Testing in the emergency room revealed chest x-ray done in the emergency room revealed no acute cardiopulmonary disease process, with changes suggestive of COPD EKG done in the emergency room revealed atrial tachycardia with rapid ventricular response Patient was admitted to medical floor for further evaluation and treatment, cardiology consultation was requested Past medical history is significant for history of coronary artery disease with previous history of angioplasty and stent placement to the LAD, history of atrial fibrillation with history of ablation, history of pulmonary embolism, history of hypertension, history of hyperlipidemia, previous history of atrial tachycardia On review of systems patient is alert and oriented 3 in no apparent distress she is complaining of palpitation and shortness of breath otherwise she denies any complaints there is no fever or chills no headache or dizziness no chest pain no cough no nausea or vomiting no abdominal pain no diarrhea no blood in the stools no burning with urination no frequency or urgency no hematuria. On 01/20/2023 patient is alert and oriented 3. Patient still complaining of elevated heart rate with low blood pressure. Patient Metroprolol yesterday. Current vital signs temp 97.9 heart rate 113, blood pressure 94/67 pulse ox 96% on room air. Patient also reports ongoing shortness of breath with does sound like a chronic issue for patient. Will discuss with cardiology services to further assess medication. At this time patient denies chest pain or shortness breath. Patient denies nausea vomiting or diarrhea. Patient denies any urinary burning or frequency. On 01/21/2023 patient was seen and examined on the medical floor she is alert and oriented 3 in no apparent distress she is still complaining of lightheadedness and occasional palpitation, she also has chronic shortness of breath otherwise she denies any complaints, there is no fever or chills no headache or dizziness no chest pain no cough no nausea or vomiting no abdominal pain no diarrhea no blood in the stools no burning with urination no frequency or urgency no hematuria. Amiodarone was added yesterday to her medication regimen, we are awaiting further recommendation from cardiology Objective - Vital Signs Vital signs: Vital Signs Temp 97.4 F L 01/20/23 19:39 Pulse 102 H 01/21/23 11:58 Resp 16 01/21/23 11:58 BP 105/62 01/21/23 11:58 Pulse Ox 98 01/21/23 12:08 FiO2 Intake & Output 01/20/23 01/21/23 01/21/23 18:59 06:59 18:59 Intake Total 1260 200 180 Balance 1260 200 180 Weight 79.7 kg Intake: Oral 1260 200 180 Other: # Voids 2 1 1 - Exam In general patient is alert and oriented x 3 in no distress HEENT head normocephalic and atraumatic Neck is supple no JVD no goiter no lymphadenopathy no carotid bruit Chest examination is clear to auscultation no crackles no wheezing Cardiac exam reveals irregular heart sounds S1 and S2 no gallops no murmurs Abdomen is soft nontender no organomegaly with normal bowel sounds Extremity exam reveals no edema no cyanosis or clubbing Neurological examination reveals no gross focal deficits - Labs CBC & Chem 7: 01/20/23 07:21 01/20/23 07:21 Assessment and Plan Plan: Atrial tachycardia with rapid ventricular response Palpitation on presentation to emergency room Underlying history of coronary artery disease with history of angioplasty and stent placement to the LAD Underlying history of atrial fibrillation with previous history of ablation Previous history of pulmonary embolism History of chronic shortness of breath At this time patient is admitted to telemetry floor Cardiology consultation was requested echocardiogram ordered Home medications reviewed and reordered Will follow closely
--- NOTE | 2023-01-21 16:48 | P.PN ---
Subjective Progress Note Date: 01/21/23 This is a 87-year-old female with a past medical history significant for atrial fibrillation with previous ablation, atrial tachycardia ablation in September 2022, pulmonary embolism, valvular heart disease, coronary artery disease with previous stenting, and chronic shortness of breath. Patient follows in the office with Dr. Soto. We have been asked to see the patient in consultation for atrial flutter. Patient examined at the bedside. Patient presented to the hospital after noticing her heart rate was high on her watch. She states initially yesterday she did not have any palpitations however after checking her heart rate on her watch she did begin to have some palpitations. She denied any chest pain or pressure. She reports chronic shortness of breath of unknown etiology. She states her shortness of breath is not worse than her baseline. EKG completed this morning reveals atrial tachycardia with a heart rate of 110. The patient is not on any AV enmanuel blocking agents on an outpatient basis. She believes she was on these at one time but is unsure of the reason that there were discontinued. Her cardiogram with Doppler study revealed ejection fraction of 45% with mild AR. 01/21/2023 Patient remains on amiodarone. Heart rate is somewhat better controlled. She continues to have positive orthostatic blood pressures. Continues to complain of shortness of breath with minimal activity which has been chronic and stable compared to her baseline. She denies any chest pressure or pain. Continues to be in atrial tachycardia with a heart rate around 100. Objective - Vital Signs Vital signs: Vital Signs Temp 97.4 F L 01/20/23 19:39 Pulse 101 H 01/21/23 16:00 Resp 16 01/21/23 16:00 BP 91/51 01/21/23 16:00 Pulse Ox 96 01/21/23 16:00 FiO2 Intake & Output 01/20/23 01/21/23 01/21/23 18:59 06:59 18:59 Intake Total 1260 200 180 Balance 1260 200 180 Weight 79.7 kg Intake: Oral 1260 200 180 Other: # Voids 2 1 1 - Exam VITAL SIGNS: Reviewed. GENERAL: Well-developed in no acute distress. HEENT: Head is normocephalic. Pupils are equal, round. Sclerae anicteric. Mucous membranes of the mouth are moist. Neck supple. No JVD or thyromegaly LUNGS: Respirations even and unlabored. Lungs essentially clear to auscultation bilaterally. HEART: Tachycardic. Regular rate and rhythm. S1 and S2 heard. Systolic murmur noted ABDOMEN: Soft. Nondistended. Nontender. EXTREMITIES: Normal range of motion. No clubbing or cyanosis. Peripheral pulses intact. No lower extremity edema NEUROLOGIC: Awake and alert. Oriented x 3. - Labs CBC & Chem 7: 01/20/23 07:21 01/20/23 07:21 Assessment and Plan Assessment: Atrial tachycardia with RVR Coronary artery disease with previous stenting to the LAD Valvular heart disease History of atrial tachycardia ablation, September 2022 History of atrial fibrillation with previous ablation History of pulmonary embolism Chronic shortness of breath Plan: From cardiology's perspective medications were reviewed and we will continue the same. Heart rate is better controlled. Continue to encourage oral fluid intake to stay well-hydrated and recommend compression stockings as well as slow position changes secondary to orthostatic hypotension. VP MEDICAL note has been reviewed, I agree with a documented findings and plan of care. Patient was seen and examined.
[2023-01-21] MEDS: EZETIMIBE 10 MG TAB PO SCH (20:32)
[2023-01-22] MEDS: PANTOPRAZOLE 40 MG TABLET PO SCH (06:53)
[2023-01-22] MEDS: LEVOTHYROXINE 25 MCG TAB PO SCH (06:53)
[2023-01-22 07:38] LABS: Basophils % (A) 0 %; Eosinophils # (A) 0.2 k/uL (0-0.7); Eosinophils % (A) 3 %; HCT 36.9 % (34.0-46.0); HGB 11.9 gm/dL (11.4-16.0); Lymphocytes # (A) 1.4 k/uL (1.0-4.8); Lymphocytes % (A) 22 %; MCH 27.8 pg (25.0-35.0); MCHC 32.3 g/dL (31.0-37.0); Mean Platelet Volume 6.9; Monocytes # (A) 0.4 k/uL (0-1.0); Monocytes % (A) 6 %; Neutrophils % (A) 65 %; Platelet Count 365 k/uL (150-450); RBC 4.29 m/uL (3.80-5.40); RDW 15.9 % (11.5-15.5); WBC 6.1 k/uL (3.8-10.6)
[2023-01-22 07:45] LABS: Albumin 3.5 g/dL (3.5-5.0); Calcium 8.8 mg/dL (8.4-10.2); Potassium 4.1 mmol/L (3.5-5.1); Total Bilirubin 0.6 mg/dL (0.2-1.3)
[2023-01-22] MEDS: ASPIRIN 81 MG PO SCH (08:22)
[2023-01-22] MEDS: FUROSEMIDE 20 MG TAB PO SCH (08:22)
[2023-01-22] MEDS: POTASSIUM CHLORIDE ER 10 MEQ TAB.ER.PRT PO SCH (08:22)
[2023-01-22] MEDS: METOPROLOL TARTRATE 12.5 MG TAB PO SCH ×2 (08:23→20:41)
[2023-01-22] MEDS: AMIODARONE 200 MG TAB PO SCH ×2 (08:23→20:41)
[2023-01-22] MEDS: APIXABAN 5 MG TAB PO SCH ×2 (08:23→20:41)
[2023-01-22 08:25] VITALS: RESP 16
--- NOTE | 2023-01-22 10:02 | P.DS ---
Providers Date of admission: 01/18/23 22:50 Expected date of discharge: 01/22/23 Attending physician: Regan James Consults: 01/18/23 22:24 Consult Physician Routine Consulting Provider: Jonathon Mclaughlin Consult Reason/Comments: Atrial flutter rapid ventricular response, palpitations, short of breath Do you want consulting provider notified?: Yes, Notify in am Primary care physician: Regan James [facility] Course: Discharge diagnosis Atrial tachycardia with rapid ventricular response Palpitation on presentation to emergency room Underlying history of coronary artery disease with history of angioplasty and stent placement to the LAD Underlying history of atrial fibrillation with previous history of ablation Previous history of pulmonary embolism History of chronic shortness of breath Hospital course Sydni Kemp, is an 87-year-old female who presented to [facility] emergency room with a chief complaint of palpitation and tachycardia. Patient also has chronic shortness of breath. She was evaluated in the emergency room vital examination on presentation revealed a temperature of 97.9 pulse 108 respiration 20 blood pressure 104/67 pulse ox 99% on room air Laboratory data revealed a white blood count of 6.8 hemoglobin 11.5 platelet count 381 sodium 134 potassium 4.3 chloride 100 CO2 22 BUN 21 creatinine 0.98 troponin level less than 0.012 Testing in the emergency room revealed chest x-ray done in the emergency room revealed no acute cardiopulmonary disease process, with changes suggestive of COPD EKG done in the emergency room revealed atrial tachycardia with rapid ventricular response Patient was admitted to medical floor for further evaluation and treatment, cardiology consultation was requested Past medical history is significant for history of coronary artery disease with previous history of angioplasty and stent placement to the LAD, history of atrial fibrillation with history of ablation, history of pulmonary embolism, history of hypertension, history of hyperlipidemia, previous history of atrial tachycardia On review of systems patient is alert and oriented 3 in no apparent distress she is complaining of palpitation and shortness of breath otherwise she denies any complaints there is no fever or chills no headache or dizziness no chest pain no cough no nausea or vomiting no abdominal pain no diarrhea no blood in the stools no burning with urination no frequency or urgency no hematuria. On 01/20/2023 patient is alert and oriented 3. Patient still complaining of elevated heart rate with low blood pressure. Patient Metroprolol yesterday. Current vital signs temp 97.9 heart rate 113, blood pressure 94/67 pulse ox 96% on room air. Patient also reports ongoing shortness of breath with does sound like a chronic issue for patient. Will discuss with cardiology services to further assess medication. At this time patient denies chest pain or shortness breath. Patient denies nausea vomiting or diarrhea. Patient denies any urinary burning or frequency. On 01/21/2023 patient was seen and examined on the medical floor she is alert and oriented 3 in no apparent distress she is still complaining of lightheadedness and occasional palpitation, she also has chronic shortness of breath otherwise she denies any complaints, there is no fever or chills no headache or dizziness no chest pain no cough no nausea or vomiting no abdominal pain no diarrhea no blood in the stools no burning with urination no frequency or urgency no hematuria. Amiodarone was added yesterday to her medication regimen, we are awaiting further recommendation from cardiology On 01/22/2023 patient is alert and oriented 3. Patient states she feels ready to be DC'd home. Patient was started on amiodarone. Heart rate has improved. Current vital signs pulse 95, heart rate 95/53 and pulse ox 95% on room air. She to follow-up cardiology services for further management Patient Condition at Discharge: Stable Plan - Discharge Summary Discharge Rx Participant: Yes New Discharge Prescriptions: New Amiodarone [Cordarone] 400 mg PO BID 30 Days #120 tab Metoprolol Tartrate [Lopressor] 12.5 mg PO BID 30 Days #60 tab Continue Furosemide [Lasix] 20 mg PO DAILY Potassium Chloride ER [K-Dur 10] 10 meq PO DAILY 30 Days #30 tab Isosorbide Mononitrate ER [Imdur] 30 mg PO DAILY Levothyroxine Sodium [Synthroid] 25 mcg PO DAILY Pantoprazole [Protonix] 40 mg PO DAILY Apixaban [Eliquis] 5 mg PO BID Ezetimibe [Zetia] 10 mg PO HS Nitroglycerin Sl Tabs [Nitrostat] 0.4 mg SUBLINGUAL Q5M PRN PRN Reason: Chest Pain Aspirin EC [Ecotrin Low Dose] 81 mg PO DAILY Furosemide [Lasix] 40 mg PO DAILY PRN PRN Reason: Edema Discharge Medication List Apixaban [Eliquis] 5 mg PO BID 03/07/22 [History] Furosemide [Lasix] 20 mg PO DAILY 03/07/22 [History] Pantoprazole [Protonix] 40 mg PO DAILY 03/07/22 [History] Ezetimibe [Zetia] 10 mg PO HS 09/28/22 [History] Potassium Chloride ER [K-Dur 10] 10 meq PO DAILY 30 Days #30 tab 10/11/22 [Rx] Aspirin EC [Ecotrin Low Dose] 81 mg PO DAILY 01/18/23 [History] Furosemide [Lasix] 40 mg PO DAILY PRN 01/18/23 [History] Isosorbide Mononitrate ER [Imdur] 30 mg PO DAILY 01/18/23 [History] Levothyroxine Sodium [Synthroid] 25 mcg PO DAILY 01/18/23 [History] Nitroglycerin Sl Tabs [Nitrostat] 0.4 mg SUBLINGUAL Q5M PRN 01/18/23 [History] Amiodarone [Cordarone] 400 mg PO BID 30 Days #120 tab 01/22/23 [Rx] Metoprolol Tartrate [Lopressor] 12.5 mg PO BID 30 Days #60 tab 01/22/23 [Rx] Follow up Appointment(s)/Referral(s): Regan James MD [Primary Care Provider] - 1-2 days Kieran Soto MD [STAFF PHYSICIAN] - 1 Week Activity/Diet/Wound Care/Special Instructions: activity as tolerated diet heart healthy Discharge Disposition: HOME SELF-CARE
[2023-01-22] MEDS: ALPRAZolam 0.25 MG TAB PO PRN ×2 (10:53→20:49)
--- NOTE | 2023-01-22 11:24 | CT ---
EXAMINATION TYPE: CT brain wo con DATE OF EXAM: 01/22/2023 COMPARISON: 09/27/2022 HISTORY: Left sided numbness. CT DLP: 1131.[address] of the brain was performed. The ventricles, basal cisterns and sulci overlying the cerebral convexities demonstrate mild enlargem ent. There is no evidence for intracranial hemorrhage or sulcal effacement. There is decreased attenuation about the periventricular white matter and deep white matter of both c erebral hemispheres, compatible with chronic small vessel ischemia. Differential diagnosis does inclu de demyelination. No mass effects are seen.No midline shift. Osseous calvarium is intact. If symptoms persist consider MRI. IMPRESSION: 1. Age related atrophic and chronic small vessel ischemic change without acute intracranial process s een at this time.
--- NOTE | 2023-01-22 15:24 | P.CNNES ---
History of Present Illness Consult date: 01/22/23 History of Present Illness: The patient is an 87-year-old female who is seen in neurologic consultation on January 22, 2023, via teleneurology. The patient is being seen in neurologic consultation, for left sided numbness. The patient was originally admitted to the hospital for atrial fibrillation with rapid ventricular response. She was reportedly not feeling well. She reports being short of breath. The patient states that her shortness of breath began approximately 5 years ago. She says she has seen numerous physicians and has not found an answer. This morning, the patient reports that she got up to the bathroom. She felt short of breath and as the shortness of breath worsened, she reported the onset of a tingling sensation involving her arms and legs. She says that her left hand, arm and leg went numb. She says that her symptoms lasted for approximatel y one hour. She did receive a Valium, which is seemed to be beneficial. The patient states that when she was being taken down for CAT scan, attack who was pushing the cart Asking her to speak. The patient reports that her speech was slow. She says she was having difficulty getting her words out. She says she, "felt like I would black out". The patient also reports feeling a generalized weakness, left greater than right. While receiving the CT scan, the patient reports that she was shaking. She describes a trembling sensation of her arms and legs. At the time of this evaluation, the patient reports that all of her symptoms have resolved. The patient does report having a left sided, temporal headache, following the symptoms. In addition, the patient reports blurring of her vision. There was no loss of vision or diplopia. CT scan of the brain was performed. There was no evidence of acute hemorrhage or infarct. Past Medical History Past Medical History: Atrial Fibrillation, Hypertension Additional Past Medical History / Comment(s): Hypotension, COVID 04/11 History of Any Multi-Drug Resistant Organisms: None Reported Past Surgical History: Ablation, Cardiac Ablation, Cholecystectomy, Heart Catheterization With Stent, Orthopedic Surgery Additional Past Surgical History / Comment(s): Cardiac Ablation: Jul 2021 Past Anesthesia/Blood Transfusion Reactions: No Reported Reaction Date of Last Stent Placement:: 2013 Past Psychological History: No Psychological Hx Reported Smoking Status: Never smoker Past Alcohol Use History: Rare Past Drug Use History: None Reported - Past Family History Mother Family Medical History: Deep Vein Thrombosis (DVT), Pulmonary Embolus Additional Family Medical History / Comment(s): young at 52 with a "blood clot in the heart" Father Family Medical History: AFIB, Diabetes Mellitus Additional Family Medical History / Comment(s): Lived to be Medications and Allergies Home Medications Medication Instructions Recorded Confirmed Type Apixaban [Eliquis] 5 mg PO BID 03/07/22 01/18/23 History Furosemide [Lasix] 20 mg PO DAILY 03/07/22 01/18/23 History Pantoprazole [Protonix] 40 mg PO DAILY 03/07/22 01/18/23 History Ezetimibe [Zetia] 10 mg PO HS 09/28/22 01/18/23 History Potassium Chloride ER [K-Dur 10] 10 meq PO DAILY 30 Days #30 tab 10/11/22 Rx Aspirin EC [Ecotrin Low Dose] 81 mg PO DAILY 01/18/23 01/18/23 History Furosemide [Lasix] 40 mg PO DAILY PRN 01/18/23 01/18/23 History Isosorbide Mononitrate ER [Imdur] 30 mg PO DAILY 01/18/23 01/18/23 History Levothyroxine Sodium [Synthroid] 25 mcg PO DAILY 01/18/23 01/18/23 History Nitroglycerin Sl Tabs [Nitrostat] 0.4 mg SUBLINGUAL Q5M PRN 01/18/23 01/18/23 History Amiodarone [Cordarone] 400 mg PO BID 30 Days #120 tab 01/22/23 Rx Metoprolol Tartrate [Lopressor] 12.5 mg PO BID 30 Days #60 tab 01/22/23 Rx Allergies Allergy/AdvReac Type Severity Reaction Status Date / Time [id number] Reductase AdvReac muscle Verified 01/18/23 21:15 Inhibitor weakness Physical Examination - Vital Signs Vital Signs: Vital Signs Temp Pulse Pulse Pulse Resp BP BP 01/22/23 10:55 112 H 16 113/73 01/22/23 08:00 95 91 16 95/53 01/22/23 07:51 01/22/23 03:47 97.7 F 106 H 17 100/60 01/22/23 01:06 102 H 16 01/21/23 23:05 97.6 F 102 H 16 01/21/23 19:25 100 17 01/21/23 19:22 97.8 F 100 17 01/21/23 16:00 101 H 16 BP Pulse Ox 01/22/23 10:55 01/22/23 08:00 109/61 95 01/22/23 07:51 94 L 01/22/23 03:47 94 L 01/22/23 01:06 01/21/23 23:05 94/64 95 01/21/23 19:25 01/21/23 19:22 100/59 98 01/21/23 16:00 91/51 96 Intake and Output 01/21/23 01/22/23 01/22/23 22:59 06:59 14:59 Intake Total 180 150 180 Balance 180 150 180 Intake: Oral 180 150 180 Other: # Voids 1 2 1 # Bowel Movements 1 Weight 79.4 kg Gen.: The patient is reclining in the bed. She is well-nourished, well- developed and in no acute distress. HEENT: Head is atraumatic, normocephalic. Fundus not visualized. There is no scleral icterus. Mucous membranes are moist. Neck: Supple, without carotid bruits Heart: Tachycardic and irregular Lungs: Essentially clear to auscultation Extremities: Without edema Neurological examination Mental status: The patient is awake, alert and oriented 3. Her speech is clear. There is no dysarthria or aphasia. The patient is somewhat anxious. Cranial nerves: Pupils are equal at 2 mm and reactive. Visual parada are full to confrontation. Extraocular movements are intact. There is no nystagmus. Facial sensation is intact. There is no facial asymmetry. Hearing is grossly intact. Uvula and palate are midline. Shoulder shrug is symmetric. Tongue protrudes midline. Motor: Bilateral wafer substrate tester strength 5/5. I sepsis and triceps strength 3/5. Bilateral ankle plantar and dorsiflexion 4/5. Coordination: Finger to nose, rapid alternating movements and [id number] testing are intact. Deep tendon reflexes: 2+/4+ in the bilateral upper extremities. Patellar reflexes difficult to assess secondary to knee replacement. Sensation: Intact to light touch throughout, with the exception of decreased touch sensation in the right lateral sanchez. There is no extinction with double simultaneous stimulation. Gait: Not assessed Results - Laboratory Findings CBC and BMP: 06/04/23 06:35 01/22/23 06:35 Abnormal Lab Findings: Abnormal Labs 01/18/23 01/18/23 01/20/23 20:45 20:45 07:21 RDW 15.8 H 15.8 H Sodium 134 L BUN 21 H Creatinine Glucose 108 H Total Protein 01/20/23 01/22/23 01/22/23 07:21 06:35 06:35 RDW 15.9 H Sodium 136 L BUN 19 H Creatinine 1.10 H 1.08 H Glucose Total Protein 6.0 L Assessment and Plan Assessment: 1. The patient has a nonfocal, nonlateralizing neurological examination. I do not believe her symptoms of the left sided numbness are consistent with a TIA or central etiology. The patient describes generalized symptoms at onset. I believe her symptoms are secondary to shortness of breath, tachycardia/atrial fi brillation and possible hypotension. Anxiety may also play a role 2. Atrial fibrillation with RVR 3. Hypotension 4. History of chronic shortness of breath 5. History of hypertension Plan: 1. Check orthostatic vitals 2. Primary care and cardiology to manage the patient's atrial fibrillation and shortness of breath 3. No further neurologic intervention is needed at this time. Please call with questions or concerns. Thank you for allowing us to participate in the care of this patient Time with Patient: Greater than 30 (Greater than 55 minutes were spent caring for this patient today including, obtaining a history, examining the patient, reviewing imaging, chart documentation, labs, placing orders and creating this note)
--- NOTE | 2023-01-22 16:07 | P.PN ---
Subjective Progress Note Date: 01/22/23 This is a 87-year-old female with a past medical history significant for atrial fibrillation with previous ablation, atrial tachycardia ablation in September 2022, pulmonary embolism, valvular heart disease, coronary artery disease with previous stenting, and chronic shortness of breath. Patient follows in the office with Dr. Soto. We have been asked to see the patient in consultation for atrial flutter. Patient examined at the bedside. Patient presented to the hospital after noticing her heart rate was high on her watch. She states initially yesterday she did not have any palpitations however after checking her heart rate on her watch she did begin to have some palpitations. She denied any chest pain or pressure. She reports chronic shortness of breath of unknown etiology. She states her shortness of breath is not worse than her baseline. EKG completed this morning reveals atrial tachycardia with a heart rate of 110. The patient is not on any AV enmanuel blocking agents on an outpatient basis. She believes she was on these at one time but is unsure of the reason that there were discontinued. Her cardiogram with Doppler study revealed ejection fraction of 45% with mild AR. 01/21/2023 Patient remains on amiodarone. Heart rate is somewhat better controlled. She continues to have positive orthostatic blood pressures. Continues to complain of shortness of breath with minimal activity which has been chronic and stable compared to her baseline. She denies any chest pressure or pain. Continues to be in atrial tachycardia with a heart rate around 100. 01/22/2023 Patient was seen and examined resting comfortably in bed. This afternoon she is overall feeling better. Her heart rate is in the 90s. Her dizziness is a bit better. She did have an episode this morning the bathroom she became significantly dizzy, short of breath with tingling in bilateral arms and legs. She was evaluated by neurology. Tylenol and not felt that her symptoms were consistent with TIA or CVA. She is feeling better this afternoon. Objective - Vital Signs Vital signs: Vital Signs Temp 97.7 F 01/22/23 03:47 Pulse 112 H 01/22/23 10:55 Resp 16 01/22/23 10:55 BP 113/73 01/22/23 10:55 Pulse Ox 95 01/22/23 08:00 FiO2 Intake & Output 01/21/23 01/22/23 01/22/23 18:59 06:59 18:59 Intake Total 360 150 360 Balance 360 150 360 Weight 79.4 kg Intake: Oral 360 150 360 Other: # Voids 1 2 1 # Bowel Movements 1 - Exam VITAL SIGNS: Reviewed. GENERAL: Well-developed in no acute distress. HEENT: Head is normocephalic. Pupils are equal, round. Sclerae anicteric. Mucous membranes of the mouth are moist. Neck supple. No JVD or thyromegaly LUNGS: Respirations even and unlabored. Lungs essentially clear to auscultation bilaterally. HEART: Tachycardic. Irregular rate and rhythm. S1 and S2 heard. Systolic mur mur noted ABDOMEN: Soft. Nondistended. Nontender. EXTREMITIES: Normal range of motion. No clubbing or cyanosis. Peripheral pulses intact. No lower extremity edema NEUROLOGIC: Awake and alert. Oriented x 3. - Labs CBC & Chem 7: 01/22/23 06:35 01/22/23 06:35 Labs: Abnormal Lab Results - Last 24 Hours (Table) 01/22/23 01/22/23 Range/Units 06:35 06:35 RDW 15.9 H (11.5-15.5) % Sodium 136 L (137-145) mmol/L Creatinine 1.08 H (0.52-1.04) mg/dL Total Protein 6.0 L (6.3-8.2) g/dL Assessment and Plan Assessment: Atrial tachycardia with RVR, rate currently well controlled Coronary artery disease with previous stenting to the LAD Valvular heart disease History of atrial tachycardia ablation, September 2022 History of atrial fibrillation with previous ablation History of pulmonary embolism Chronic shortness of breath Plan: From cardiology's perspective medications were reviewed and we will continue the same. Heart rate is better controlled. Continue to encourage oral fluid intake to stay well-hydrated and recommend compression stockings as well as slow position changes secondary to orthostatic hypotension. From our standpoint she may be discharged home and follow-up with Dr. Soto in the office as an outpatient. DRUM OPERATOR note has been reviewed, I agree with a documented findings and plan of care. Patient was seen and examined.
[2023-01-22] MEDS: EZETIMIBE 10 MG TAB PO SCH (20:41)
[2023-01-23] MEDS: LEVOTHYROXINE 25 MCG TAB PO SCH (06:34)
[2023-01-23] MEDS: PANTOPRAZOLE 40 MG TABLET PO SCH (06:34)
--- NOTE | 2023-01-23 08:45 | US ---
EXAMINATION TYPE: US carotid duplex BILAT DATE OF EXAM: 01/23/2023 Exam done portable COMPARISON: US 09/30/2022 CLINICAL INDICATION: Female, 87 years old with history of left sided numbness; TECHNIQUE: Carotid duplex ultrasound examination. Indirect Doppler criteria was utilized. FINDINGS: EXAM MEASUREMENTS: RIGHT: Peak Systolic Velocity (PSV) cm/sec ----- Right CCA: 42.1 ----- Right ICA: 98.2 ----- Right ECA: 61.2 ICA/CCA ratio: 2.3 RIGHT: End Diastole cm/sec ----- Right CCA: 11.0 ----- Right ICA: 25.9 ----- Right ECA: 7.1 LEFT: Peak Systolic Velocity (PSV) cm/sec ----- Left CCA: 42.4 ----- Left ICA: 89.7 ----- Left ECA: 63.4 ICA/CCA ratio: 2.1 LEFT: End Diastole cm/sec ----- Left CCA: 10.7 ----- Left ICA: 29.0 ----- Left ECA: 6.3 VERTEBRALS (direction of flow): Right Vertebral: Antegrade Left Vertebral: Antegrade Rhythm: Normal IMPRESSION: Less than 50% stenosis of the bilateral carotid bifurcations. Criteria for Assigning % of Stenosis / Diameter reduction (Estimation based on the indirect measurements of the internal carotid artery velocities (ICA PSV). 1. Normal (no stenosis)=ICA PSV < 125 cm/s: ratio < 2.0: ICA EDV<40 cm/s. 2. Less than 50% stenosis=ICA PSV < 125 cm/s: ratio < 2.0: ICA EDV<40 cm/s. 3. 50 to 69% stenosis=ICA PSV of 125 to 230 cm/s: ration 2.0 ? 4.0: ICA EDV 40-100 cm/s. 4. Greater than 70% stenosis to near occlusion= ICA PSV > 230 cm/s: ratio > 4.0: ICA EDV > 100 cm/s. 5. Near occlusion= ICA PSV velocities may be low or undetectable: variable ratio and ICA EDV. 6. Total occlusion=unable to detect flow.
[2023-01-23] MEDS: ASPIRIN 81 MG PO SCH (08:47)
[2023-01-23] MEDS: AMIODARONE 200 MG TAB PO SCH (08:47)
[2023-01-23] MEDS: METOPROLOL TARTRATE 12.5 MG TAB PO SCH (08:47)
[2023-01-23] MEDS: POTASSIUM CHLORIDE ER 10 MEQ TAB.ER.PRT PO SCH (08:47)
[2023-01-23] MEDS: APIXABAN 5 MG TAB PO SCH (08:47)
[2023-01-23] MEDS: FUROSEMIDE 20 MG TAB PO SCH (08:47)
[2023-01-23] MEDS: ALPRAZolam 0.25 MG TAB PO PRN (08:48)
[2023-01-23 09:55] VITALS: TEMP 97.5
[2023-01-23 12:17] VITALS: BP 90/55; PULSE 96
--- NOTE | 2023-01-23 15:32 | P.PN ---
Subjective HISTORY OF PRESENTING ILLNESS Progress Note Date: 01/22/23 This is a 87-year-old female with a past medical history significant for atrial fibrillation with previous ablation, atrial tachycardia ablation in September 2022, pulmonary embolism, valvular heart disease, coronary artery disease with previous stenting, and chronic shortness of breath. Patient follows in the office with Dr. Soto. We have been asked to see the patient in consultation for atrial flutter. Patient examined at the bedside. Patient presented to the hospital after noticing her heart rate was high on her watch. She states initially yesterday she did not have any palpitations however after checking her heart rate on her watch she did begin to have some palpitations. She denied any chest pain or pressure. She reports chronic shortness of breath of unknown etiology. She states her shortness of breath is not worse than her baseline. EKG completed this morning reveals atrial tachycardia with a heart rate of 110. The patient is not on any AV enmanuel blocking agents on an outpatient basis. She believes she was on these at one time but is unsure of the reason that there were discontinued. Her cardiogram with Doppler study revealed ejection fraction of 45% with mild AR. 01/21/2023 Patient remains on amiodarone. Heart rate is somewhat better controlled. She continues to have positive orthostatic blood pressures. Continues to complain of shortness of breath with minimal activity which has been chronic and stable compared to her baseline. She denies any chest pressure or pain. Continues to be in atrial tachycardia with a heart rate around 100. 01/22/2023 Patient was seen and examined resting comfortably in bed. This afternoon she is overall feeling better. Her heart rate is in the 90s. Her dizziness is a bit better. She did have an episode this morning the bathroom she became significantly dizzy, short of breath with tingling in bilateral arms and legs. She was evaluated by neurology. Tylenol and not felt that her symptoms were consistent with TIA or CVA. She is feeling better this afternoon. 01/23 Patient seen and examined. Denies any chest pain or pressure. Placed on Amio. Still having significant lightheadedness when standing and orthostatics abnormal. PHYSICAL EXAMINATION Vital signs reviewed. CONSTITUTIONAL: No apparent distress. HEENT: Head is normocephalic. Pupils are equal, round. Sclerae anicteric. Mucous membranes of the mouth are moist. No JVD. No carotid bruit. CHEST EXAMINATION: Lungs are clear to auscultation. No chest wall tenderness is noted on palpation or with deep breathing. HEART EXAMINATION: Regular rate and rhythm. S1, S2 heard. No murmurs, gallops or rub. ABDOMEN: Soft, nontender. Positive bowel sounds. EXTREMITIES: 2+ peripheral pulses, no lower extremity edema and no calf tenderness. NEUROLOGIC EXAMINATION: Patient is awake, alert and oriented x3. Assessment: Atrial tachycardia with RVR, rate currently well controlled Coronary artery disease with previous stenting to the LAD Valvular heart disease History of atrial tachycardia ablation, September 2022 History of atrial fibrillation with previous ablation History of pulmonary embolism Chronic shortness of breath Plan: Remains in atrial tachycardia with heart rates in the 90s. Still having orthostatic hypotension and orthostatic symptoms. Discussing trial of Midrin and patient agreeable. Patient still appears stable for discharge home. Follow-up outpatient in next one week. Objective - Vital Signs Vital signs: Vital Signs Temp 97.5 F L 01/23/23 08:00 Pulse 96 01/23/23 12:00 Resp 16 01/23/23 08:00 BP 90/55 01/23/23 12:00 Pulse Ox 95 01/23/23 12:00 FiO2 Intake & Output 01/22/23 01/23/23 01/23/23 18:59 06:59 18:59 Intake Total 540 1080 360 Balance 540 1080 360 Intake: Oral 540 1080 360 Other: # Voids 1 # Bowel Movements 1 - Labs CBC & Chem 7: 01/22/23 06:35 01/22/23 06:35
--- NOTE | 2023-01-23 16:51 | P.DS ---
Providers Date of admission: 01/18/23 22:50 Expected date of discharge: 01/23/23 Attending physician: Regan James Consults: 01/18/23 22:24 Consult Physician Routine Consulting Provider: Jonathon Mclaughlin Consult Reason/Comments: Atrial flutter rapid ventricular response, palpitations, short of breath Do you want consulting provider notified?: Yes, Notify in am 01/22/23 10:46 Consult Physician Routine Consulting Provider: Brian Weiner Consult Reason/Comments: left sided numbness Do you want consulting provider notified?: Yes Primary care physician: [facility] Course: Diagnosis on discharge: Atrial tachycardia with rapid ventricular response Palpitation on presentation to emergency room Underlying history of coronary artery disease with history of angioplasty and stent placement to the LAD Underlying history of atrial fibrillation with previous history of ablation Previous history of pulmonary embolism History of chronic shortness of breath Orthostatic hypotension Episode of left sided numbness, patient was evaluated by neurology, no evidence of TIA Hospital course: Sydni Kemp, is an 87-year-old female who presented to [facility] emergency room with a chief complaint of palpitation and tachycardia. Patient also has chronic shortness of breath. She was evaluated in the emergency room vital examination on presentation revealed a temperature of 97.9 pulse 108 respiration 20 blood pressure 104/67 pulse ox 99% on room air Laboratory data revealed a white blood count of 6.8 hemoglobin 11.5 platelet count 381 sodium 134 potassium 4.3 chloride 100 CO2 22 BUN 21 creatinine 0.98 troponin level less than 0.012 Testing in the emergency room revealed chest x-ray done in the emergency room revealed no acute cardiopulmonary disease process, with changes suggestive of COPD EKG done in the emergency room revealed atrial tachycardia with rapid ventricular response Patient was admitted to medical floor for further evaluation and treatment, cardiology consultation was requested Past medical history is significant for history of coronary artery disease with previous history of angioplasty and stent placement to the LAD, history of atrial fibrillation with history of ablation, history of pulmonary embolism, history of hypertension, history of hyperlipidemia, previous history of atrial tachycardia On review of systems patient is alert and oriented 3 in no apparent distress she is complaining of palpitation and shortness of breath otherwise she denies any complaints there is no fever or chills no headache or dizziness no chest pain no cough no nausea or vomiting no abdominal pain no diarrhea no blood in the stools no burning with urination no frequency or urgency no hematuria. On 01/20/2023 patient is alert and oriented 3. Patient still complaining of elevated heart rate with low blood pressure. Patient Metroprolol yesterday. Current vital signs temp 97.9 heart rate 113, blood pressure 94/67 pulse ox 96% on room air. Patient also reports ongoing shortness of breath with does sound like a chronic issue for patient. Will discuss with cardiology services to further assess medication. At this time patient denies chest pain or shortness breath. Patient denies nausea vomiting or diarrhea. Patient denies any urinary burning or frequency. On 01/21/2023 patient was seen and examined on the medical floor she is alert and oriented 3 in no apparent distress she is still complaining of lightheadedn ess and occasional palpitation, she also has chronic shortness of breath otherwise she denies any complaints, there is no fever or chills no headache or dizziness no chest pain no cough no nausea or vomiting no abdominal pain no diarrhea no blood in the stools no burning with urination no frequency or urgency no hematuria. Amiodarone was added yesterday to her medication regimen, we are awaiting further recommendation from cardiology On 01/22/2023 patient was seen and examined on the medical floor she is alert and oriented 3 in no apparent distress there is no fever or chills no headache or dizziness no chest pain, no shortness of breath no cough no nausea or vomiting no abdominal pain no diarrhea and no urinary symptoms. Patient was cleared by cardiology for discharge, however she started having numbness involving the left side of her body, discharge was held, computed tomography scan of the brain was ordered carotid Doppler was ordered and consultation for neurology was requested. On 01/23/2023 patient was seen and examined on the telemetry floor she is alert and oriented 3 she is complaining of feeling lightheaded otherwise she denies any complaints she was evaluated by neurology yesterday TIA was ruled out computed tomography scan of the brain did not reveal any acute abnormality carotid Doppler did not reveal any significant stenosis, patient will be discharged home today she will be followed in our office and at the cardiology office for further evaluation and treatment, during this admission metoprolol and amiodarone were added to her medication regimen, prescriptions were sent to pharmacy Patient Condition at Discharge: Stable Plan - Discharge Summary Discharge Rx Participant: Yes New Discharge Prescriptions: New Amiodarone [Cordarone] 400 mg PO BID 30 Days #120 tab Metoprolol Tartrate [Lopressor] 12.5 mg PO BID 30 Days #60 tab Midodrine [ProAmatine] 5 mg PO AC-TID #180 tab Continue Furosemide [Lasix] 20 mg PO DAILY Potassium Chloride ER [K-Dur 10] 10 meq PO DAILY 30 Days #30 tab Isosorbide Mononitrate ER [Imdur] 30 mg PO DAILY Levothyroxine Sodium [Synthroid] 25 mcg PO DAILY Pantoprazole [Protonix] 40 mg PO DAILY Apixaban [Eliquis] 5 mg PO BID Ezetimibe [Zetia] 10 mg PO HS Nitroglycerin Sl Tabs [Nitrostat] 0.4 mg SUBLINGUAL Q5M PRN PRN Reason: Chest Pain Aspirin EC [Ecotrin Low Dose] 81 mg PO DAILY Furosemide [Lasix] 40 mg PO DAILY PRN PRN Reason: Edema Discharge Medication List Apixaban [Eliquis] 5 mg PO BID 03/07/22 [History] Furosemide [Lasix] 20 mg PO DAILY 03/07/22 [History] Pantoprazole [Protonix] 40 mg PO DAILY 03/07/22 [History] Ezetimibe [Zetia] 10 mg PO HS 09/28/22 [History] Potassium Chloride ER [K-Dur 10] 10 meq PO DAILY 30 Days #30 tab 10/11/22 [Rx] Aspirin EC [Ecotrin Low Dose] 81 mg PO DAILY 01/18/23 [History] Furosemide [Lasix] 40 mg PO DAILY PRN 01/18/23 [History] Isosorbide Mononitrate ER [Imdur] 30 mg PO DAILY 01/18/23 [History] Levothyroxine Sodium [Synthroid] 25 mcg PO DAILY 01/18/23 [History] Nitroglycerin Sl Tabs [Nitrostat] 0.4 mg SUBLINGUAL Q5M PRN 01/18/23 [History] Amiodarone [Cordarone] 400 mg PO BID 30 Days #120 tab 01/22/23 [Rx] Metoprolol Tartrate [Lopressor] 12.5 mg PO BID 30 Days #60 tab 01/22/23 [Rx] Midodrine [ProAmatine] 5 mg PO AC-TID #180 tab 01/23/23 [Rx] Follow up Appointment(s)/Referral(s): Kieran Soto MD [STAFF PHYSICIAN] - 01/31/23 11:30 am Regan James MD [Primary Care Provider] - 1-2 days (Schedule appointment when office reopens.) Patient Instructions/Handouts: Atrial Flutter (DC), A-fib (Atrial Fibrillation) (DC) Activity/Diet/Wound Care/Special Instructions: activity as tolerated diet heart healthy Discharge Disposition: HOME SELF-CARE
[2023-01-23] MEDS ORDERED: MIDODRINE 5 MG TAB PO SCH (17:30)
== END 2023-01-23 16:55 | disposition home or self-care (01) ==
LOC: EC 19:52 → 3SCARD 22:50
PROVIDERS: ADMIT Internal Medicine; ATTEND Internal Medicine
DX: I47.1 Supraventricular tachycardia (principal); I48.91 Unspecified atrial fibrillation; I25.10 Atherosclerotic heart disease of native coronary artery without angina pectoris; I48.92 Unspecified atrial flutter; I10 Essential (primary) hypertension; Z95.5 Presence of coronary angioplasty implant and graft; Z86.711 Personal history of pulmonary embolism; I95.1 Orthostatic hypotension; Z90.49 Acquired absence of other specified parts of digestive tract; Z86.16 Personal history of COVID-19; Z79.01 Long term (current) use of anticoagulants; Z79.899 Other long term (current) drug therapy; Z79.82 Long term (current) use of aspirin; Z79.890 Hormone replacement therapy; Z83.3 Family history of diabetes mellitus; E78.5 Hyperlipidemia, unspecified
CPT/HCPCS: 99285; 36415; 94760 ×3; 93005; 93306; 80053 ×3; 83735; 84443; 84484; 85025 ×3; 85610; 85730; 71046; 93880; 70450; G0378 ×6

== ENCOUNTER 2023-01-29 13:26 | Observation (INO) | payer MEDICARE ==
[2023-01-29] MEDS ORDERED: NITROGLYCERIN OINT 1 INCH/GM PACKET TOPICAL STA (13:37)
[2023-01-29] MEDS ORDERED: ASPIRIN 81 MG PO STA (13:37)
--- NOTE | 2023-01-29 13:50 | ED ---
General Adult HPI - General Chief complaint: Shortness of Breath Stated complaint: CHEST PAIN Time Seen by Provider: 01/29/23 13:35 Source: patient, RN notes reviewed, old records reviewed Mode of arrival: EMS - History of Present Illness Initial comments: This is an 87-year-old female presents emergency Department stating that she has a history of atrial fibrillation. Patient states this morning she started having significant chest pressure and it radiated down both arms. She also felt very short of breath and diaphoretic. Patient states it lasts about 2 hours. Patient stated this time she is resolved of all symptoms. Patient denies any fever chills or cough. Patient denies any headache patient denies numbness weakness. Patient denies abdominal pain. - Related Data Home Medications Medication Instructions Recorded Confirmed Apixaban [Eliquis] 5 mg PO BID 03/07/22 01/29/23 Furosemide [Lasix] 20 mg PO DAILY 03/07/22 01/29/23 Pantoprazole [Protonix] 40 mg PO DAILY 03/07/22 01/29/23 Ezetimibe [Zetia] 10 mg PO HS 09/28/22 01/29/23 Aspirin EC [Ecotrin Low Dose] 81 mg PO DAILY 01/18/23 01/29/23 Furosemide [Lasix] 40 mg PO BID PRN 01/18/23 01/29/23 Isosorbide Mononitrate ER [Imdur] 30 mg PO DAILY 01/18/23 01/29/23 Levothyroxine Sodium [Synthroid] 25 mcg PO DAILY 01/18/23 01/29/23 Nitroglycerin Sl Tabs [Nitrostat] 0.4 mg SUBLINGUAL Q5M PRN 01/18/23 01/29/23 Metoprolol Tartrate [Lopressor] 12.5 mg PO BID 01/29/23 01/29/23 Previous Rx's Medication Instructions Recorded Potassium Chloride ER [K-Dur 10] 10 meq PO DAILY 30 Days #30 tab 10/11/22 Amiodarone [Cordarone] 400 mg PO BID 30 Days #120 tab 01/22/23 Midodrine [ProAmatine] 5 mg PO AC-TID #180 tab 01/23/23 Allergies Allergy/AdvReac Type Severity Reaction Status Date / Time [id number] Reductase AdvReac muscle Verified 01/29/23 14:41 Inhibitor weakness Review of Systems ROS Statement: Those systems with pertinent positive or pertinent negative responses have been documented in the HPI. ROS Other: All systems not noted in ROS Statement are negative. Past Medical History Past Medical History: Atrial Fibrillation, Hypertension Additional Past Medical History / Comment(s): Hypotension, COVID 04/11 History of Any Multi-Drug Resistant Organisms: None Reported Past Surgical History: Ablation, Cardiac Ablation, Cholecystectomy, Heart Catheterization With Stent, Orthopedic Surgery Additional Past Surgical History / Comment(s): Cardiac Ablation: Jul 2021 Past Anesthesia/Blood Transfusion Reactions: No Reported Reaction Date of Last Stent Placement:: 2013 Past Psychological History: No Psychological Hx Reported Smoking Status: Never smoker Past Alcohol Use History: Rare Past Drug Use History: None Reported - Past Family History Mother Family Medical History: Deep Vein Thrombosis (DVT), Pulmonary Embolus Additional Family Medical History / Comment(s): young at 52 with a "blood clot in the heart" Father Family Medical History: AFIB, Diabetes Mellitus Additional Family Medical History / Comment(s): Lived to be 89 General Exam - General Exam Comments Initial Comments: GENERAL: Patient is well-developed and well-nourished. Patient is nontoxic and well- hydrated and is in no acute distress. ENT: Neck is soft and supple. No significant lymphadenopathy is noted. Oropharynx is clear. Moist mucous membranes. Neck has full range of motion without eliciting any pain. EYES: The sclera were anicteric and conjunctiva were pink and moist. Extraocular movements were intact and pupils were equal round and reactive to light. Eyelids were unremarkable. PULMONARY: Unlabored respirations. Good breath sounds bilaterally. No audible rales rhonchi or wheezing was noted. CARDIOVASCULAR: There is a regular rate and rhythm without any murmurs gallops or rubs. ABDOMEN: Soft and nontender with normal bowel sounds. SKIN: Skin is clear with no lesions or rashes and otherwise unremarkable. NEUROLOGIC: Patient is alert and oriented x3. Cranial nerves II through XII are grossly intact. Motor and sensory are also intact. Normal speech, volume and content. Symmetrical smile. MUSCULOSKELETAL: Normal extremities with adequate strength and full range of motion. LYMPHATICS: No significant lymphadenopathy is noted PSYCHIATRIC: Normal psychiatric evaluation. Course Vital Signs 01/29/23 01/29/23 01/29/23 13:34 13:57 14:35 Temperature 97.7 F Pulse Rate 84 84 84 Respiratory 18 18 18 Rate Blood Pressure 99/59 99/59 94/54 O2 Sat by Pulse 95 95 96 Oximetry Medical Decision Making - Medical Decision Making EKG shows atrial fibrillation at 87 bpm QRS is 105 QT interval 4:15 QTC is 459. Patient's EKG shows no ST segment elevation or depression Was pt. sent in by a medical professional or institution (ARELIS Santos, W[employer] INSTRUCTOR, urgent ca re, hospital, or [facility]...) When possible be specific @ -[No] Did you speak to anyone other than the patient for history (EMS, parent, family, police, friend...)? What history was obtained from this source @ -[No] Did you review nursing and triage notes (agree or disagree)? Why? @ -[I reviewed and agree with nursing and triage notes] Were old charts reviewed (outside hosp., previous admission, EMS record, old EKG, old radiological studies, urgent care reports/EKG's, [facility] records)? Report findings @ -I reviewed prior charts and prior lab work on this patient Differential Diagnosis (chest pain, altered mental status, abdominal pain women, abdominal pain men, vaginal bleeding, weakness, fever, dyspnea, syncope, headache, dizziness, GI bleed, back pain, seizure, CVA, palpatations, mental health, musculoskeletal)? @ -Differential Dyspnea: Coronary syndrome, arrhythmia, tamponade, asthma, COPD, pulmonary embolism, pneumonia, pneumothorax, pulmonary effusion, anaphylaxis, diabetic ketoacidosis, flailed chest, pulmonary contusion, diaphragmatic rupture, anemia, neuromuscular, this is not meant to be an all-inclusive list. EKG interpreted by me (3pts min.). @ -[As above] X-rays interpreted by me (1pt min.). @ -Chest x-ray shows pulmonary edema CT interpreted by me (1pt min.). @ -[None done] U/S interpreted by me (1pt. min.). @ -[None done] What testing was considered but not performed or refused? (CT, X-rays, U/S, labs)? Why? @ -[None] What meds were considered but not given or refused? Why? @ -[None] Did you discuss the management of the patient with other professionals (professionals i.e. Dr., PA, W[employer] AER[employer] INSTRUCTOR, lab, RT, psych nurse, rn social work, barrel rifler broach, teacher, postal delivery officer, family preservation caseworker)? Give summary @ -Spoke with Dr. James he agreed to admit the patient Was smoking cessation discussed for >3mins.? @ -[No] Was critical care preformed (if so, how long)? @ -[No] Were there social determinants of health that impacted care today? How? (Homelessness, low income, unemployed, alcoholism, drug addiction, transportation, low edu. Level, literacy, decrease access to med. care, senior living, rehab)? @ -[No] Was there de-escalation of care discussed even if they declined (Discuss DNR or withdrawal of care, Hospice)? DNR status @ -[No] What co-morbidities impacted this encounter? (DM, HTN, Smoking, COPD, CAD, Cancer, CVA, ARF, Chemo, Hep., AIDS, mental health diagnosis, sleep apnea, morbid obesity)? @ -[None] Was patient admitted / discharged? Hospital course, mention meds given and route, prescriptions, significant lab abnormalities, going to OR and other pertinent info. @ -Patient was given Lasix but only 20 mg because the blood pressure was in the 90s which she states is normal for her. I spoke with Dr. James he agreed to admit the patient wrote admitting orders I consulted cardiology per Dr. James Undiagnosed new problem with uncertain prognosis? @ -[No] Drug Therapy requiring intensive monitoring for toxicity (Heparin, Nitro, Insulin, Cardizem)? @ -[No] Were any procedures done? @ -[No] Diagnosis/symptom? @ -Pulmonary Edema Acute, or Chronic, or Acute on Chronic? @ -Acute Uncomplicated (without systemic symptoms) or Complicated (systemic symptoms)? @ -Complicated Side effects of treatment? @ -[No] Exacerbation, Progression, or Severe Exacerbation? @ -[No] Poses a threat to life or bodily function? How? (Chest pain, [place], VA, pneumonia, PE, COPD, DKA, ARF, appy, cholecystitis, CVA, Diverticulitis, Homicidal, Suicidal, threat to staff... and all critical care pts) @ -Yes patient continued to be hypoxic and lead to end organ dysfunction - Lab Data Result diagrams: 01/29/23 13:42 01/29/23 13:42 Lab Results 01/29/23 01/29/23 01/29/23 Range/Units 13:42 13:42 13:42 WBC 5.6 (3.8-10.6) k/uL RBC 4.60 (3.80-5.40) m/uL Hgb 12.6 (11.4-16.0) gm/dL Hct 39.0 (34.0-46.0) % MCV 84.8 (80.0-100.0) fL MCH 27.4 (25.0-35.0) pg MCHC 32.3 (31.0-37.0) g/dL RDW 16.5 H (11.5-15.5) % Plt Count 381 (150-450) k/uL MPV 7.2 Neutrophils % 71 % Lymphocytes % 19 % Monocytes % 4 % Eosinophils % 3 % Basophils % 0 % Neutrophils # 4.0 (1.3-7.7) k/uL Lymphocytes # 1.1 (1.0-4.8) k/uL Monocytes # 0.2 (0-1.0) k/uL Eosinophils # 0.2 (0-0.7) k/uL Basophils # 0.0 (0-0.2) k/uL Anisocytosis Slight PT 10.9 (9.0-12.0) sec INR 1.0 (<1.2) APTT 25.4 (22.0-30.0) sec Sodium 135 L (137-145) mmol/L Potassium 3.4 L (3.5-5.1) mmol/L Chloride 97 L (98-107) mmol/L Carbon Dioxide 24 (22-30) mmol/L Anion Gap 14 mmol/L BUN 36 H (7-17) mg/dL Creatinine 1.50 H (0.52-1.04) mg/dL Est GFR (CKD-EPI)AfAm 36 (>60 ml/min/1.73 sqM) Est GFR (CKD-EPI)NonAf 32 (>60 ml/min/1.73 sqM) Glucose 123 H (74-99) mg/dL Calcium 9.2 (8.4-10.2) mg/dL Magnesium 2.2 (1.6-2.3) mg/dL Total Bilirubin 1.1 (0.2-1.3) mg/dL AST 22 (14-36) U/L ALT 19 (4-34) U/L Alkaline Phosphatase 119 (38-126) U/L Troponin I (0.000-0.034) ng/mL Total Protein 6.7 (6.3-8.2) g/dL Albumin 4.0 (3.5-5.0) g/dL 01/29/23 Range/Units 13:42 WBC (3.8-10.6) k/uL RBC (3.80-5.40) m/uL Hgb (11.4-16.0) gm/dL Hct (34.0-46.0) % MCV (80.0-100.0) fL MCH (25.0-35.0) pg MCHC (31.0-37.0) g/dL RDW (11.5-15.5) % Plt Count (150-450) k/uL MPV Neutrophils % % Lymphocytes % % Monocytes % % Eosinophils % % Basophils % % Neutrophils # (1.3-7.7) k/uL Lymphocytes # (1.0-4.8) k/uL Monocytes # (0-1.0) k/uL Eosinophils # (0-0.7) k/uL Basophils # (0-0.2) k/uL Anisocytosis PT (9.0-12.0) sec INR (<1.2) APTT (22.0-30.0) sec Sodium (137-145) mmol/L Potassium (3.5-5.1) mmol/L Chloride (98-107) mmol/L Carbon Dioxide (22-30) mmol/L Anion Gap mmol/L BUN (7-17) mg/dL Creatinine (0.52-1.04) mg/dL Est GFR (CKD-EPI)AfAm (>60 ml/min/1.73 sqM) Est GFR (CKD-EPI)NonAf (>60 ml/min/1.73 sqM) Glucose (74-99) mg/dL Calcium (8.4-10.2) mg/dL Magnesium (1.6-2.3) mg/dL Total Bilirubin (0.2-1.3) mg/dL AST (14-36) U/L ALT (4-34) U/L Alkaline Phosphatase (38-126) U/L Troponin I <0.012 (0.000-0.034) ng/mL Total Protein (6.3-8.2) g/dL Albumin (3.5-5.0) g/dL Disposition Clinical Impression: Acute pulmonary edema Disposition: ADMITTED IP TO THIS HOSP Referrals: Regan James MD [Primary Care Provider] - 1-2 days Time of Disposition: 15:12
[2023-01-29 13:53] LABS: Anisocytosis Slight; Basophils % (A) 0 %; Eosinophils # (A) 0.2 k/uL (0-0.7); Eosinophils % (A) 3 %; HGB 12.6 gm/dL (11.4-16.0); Lymphocytes # (A) 1.1 k/uL (1.0-4.8); Lymphocytes % (A) 19 %; MCH 27.4 pg (25.0-35.0); MCHC 32.3 g/dL (31.0-37.0); MCV 84.8 fL (80.0-100.0); Mean Platelet Volume 7.2; Monocytes # (A) 0.2 k/uL (0-1.0); Monocytes % (A) 4 %; Neutrophils % (A) 71 %; Platelet Count 381 k/uL (150-450); RDW 16.5 % (11.5-15.5); WBC 5.6 k/uL (3.8-10.6)
[2023-01-29] MEDS ORDERED: SODIUM CHLORIDE 0.9% 500 ML 500 ML IV ONE (13:57)
[2023-01-29 14:04] LABS: Partial Thromboplastin Time 25.4 sec (22.0-30.0); Prothrombin Time 10.9 sec (9.0-12.0)
[2023-01-29 14:05] LABS: ALT 19 U/L (4-34); AST 22 U/L (14-36); African American GFR (CKD) 36 (>60 ml/min/1.73 sqM); Alkaline Phosphatase 119 U/L (38-126); Anion Gap 14 mmol/L; Blood Urea Nitrogen 36 mg/dL (7-17); Calcium 9.2 mg/dL (8.4-10.2); Carbon Dioxide 24 mmol/L (22-30); Chloride 97 mmol/L (98-107); Glucose 123 mg/dL (74-99); Magnesium 2.2 mg/dL (1.6-2.3); Non-African American GFR(CKD) 32 (>60 ml/min/1.73 sqM); Potassium 3.4 mmol/L (3.5-5.1); Sodium 135 mmol/L (137-145); Total Bilirubin 1.1 mg/dL (0.2-1.3); Total Protein 6.7 g/dL (6.3-8.2)
--- NOTE | 2023-01-29 14:30 | XR ---
EXAMINATION TYPE: XR chest 2V DATE OF EXAM: 01/29/2023 COMPARISON: 01/18/2023 HISTORY: 87-year-old female with chest pain TECHNIQUE: AP and lateral views FINDINGS: Heart borderline enlarged. Atherosclerotic calcifications throughout the thoracic aorta. Perihilar an d interstitial density. Some subtle Mono B lines are noted. Trace effusion suggested on the lateral view. No corbin consolidation. IMPRESSION: Correlation for CHF with pulmonary vascular congestion. Possible trace effusions.
[2023-01-29] MEDS ORDERED: FUROSEMIDE 10 MG/ML 2 ML VIAL IV ONE (14:52)
[2023-01-29] MEDS: FUROSEMIDE 10 MG/ML 4 ML VIAL IV SCH (15:59)
[2023-01-29] MEDS ORDERED: NITROGLYCERIN OINT 1 INCH/GM PACKET TOPICAL SCH (18:00)
[2023-01-29] MEDS ORDERED: NITROGLYCERIN SL TABS 0.4 MG TAB SUBLINGUAL PRN (21:01)
[2023-01-29] MEDS: AMIODARONE 200 MG TAB PO SCH (21:31)
[2023-01-29] MEDS: APIXABAN 5 MG TAB PO SCH (21:31)
[2023-01-29] MEDS: MIDODRINE 5 MG TAB PO SCH (21:32)
[2023-01-29] MEDS: METOPROLOL TARTRATE 12.5 MG TAB PO SCH (21:33)
[2023-01-30] MEDS: METOPROLOL TARTRATE 12.5 MG TAB PO SCH ×3 (00:21→20:43)
[2023-01-30] MEDS: FUROSEMIDE 10 MG/ML 4 ML VIAL IV SCH (02:45)
[2023-01-30] MEDS: PANTOPRAZOLE 40 MG TABLET PO SCH (06:18)
[2023-01-30] MEDS: LEVOTHYROXINE 25 MCG TAB PO SCH (06:18)
[2023-01-30] MEDS: MIDODRINE 5 MG TAB PO SCH ×3 (06:19→17:56)
--- NOTE | 2023-01-30 06:43 | XR ---
EXAM: XR Chest, 1 View CLINICAL HISTORY: ITS.REASON XR Reason: increased oxygen demand TECHNIQUE: Frontal view of the chest. COMPARISON: 01/29/2023 FINDINGS: Lungs: Left basal subsegmental opacity, likely atelectasis, possible developing pneumonia. Prominent bronchovascular markings, but well- defined and regular. Pleural space: Unremarkable. No pneumothorax. Heart: Unremarkable. No cardiomegaly. Mediastinum: Unremarkable. Bones/joints: Unremarkable. Vasculature: Unfolding of atherosclerotic aorta. IMPRESSION: 1. Left basal atelectasis, less likely pneumonia. 2. Underlying chronic interstitial lung disease changes.
[2023-01-30] MEDS ORDERED: MIDODRINE 5 MG TAB PO SCH (07:30)
[2023-01-30] MEDS: ASPIRIN 81 MG PO SCH (08:18)
[2023-01-30] MEDS: APIXABAN 5 MG TAB PO SCH ×2 (08:18→20:42)
[2023-01-30] MEDS: POTASSIUM CHLORIDE ER 10 MEQ TAB.ER.PRT PO SCH (08:18)
[2023-01-30 08:39] LABS: Anisocytosis Slight; Basophils % (A) 0 %; Eosinophils # (A) 0.2 k/uL (0-0.7); Eosinophils % (A) 3 %; HCT 35.6 % (34.0-46.0); HGB 11.5 gm/dL (11.4-16.0); Lymphocytes # (A) 1.2 k/uL (1.0-4.8); Lymphocytes % (A) 17 %; MCH 27.3 pg (25.0-35.0); MCHC 32.3 g/dL (31.0-37.0); MCV 84.4 fL (80.0-100.0); Mean Platelet Volume 7.3; Monocytes # (A) 0.4 k/uL (0-1.0); Monocytes % (A) 6 %; Neutrophils % (A) 70 %; Platelet Count 351 k/uL (150-450); RBC 4.22 m/uL (3.80-5.40); RDW 16.6 % (11.5-15.5); WBC 7.1 k/uL (3.8-10.6)
[2023-01-30 08:45] LABS: ALT 16 U/L (4-34); AST 20 U/L (14-36); African American GFR (CKD) 43 (>60 ml/min/1.73 sqM); Albumin 3.5 g/dL (3.5-5.0); Alkaline Phosphatase 121 U/L (38-126); Anion Gap 8 mmol/L; Blood Urea Nitrogen 30 mg/dL (7-17); Calcium 8.5 mg/dL (8.4-10.2); Carbon Dioxide 29 mmol/L (22-30); Chloride 99 mmol/L (98-107); Glucose 89 mg/dL (74-99); Non-African American GFR(CKD) 38 (>60 ml/min/1.73 sqM); Potassium 3.8 mmol/L (3.5-5.1); Sodium 136 mmol/L (137-145); Total Bilirubin 0.6 mg/dL (0.2-1.3)
[2023-01-30] MEDS ORDERED: ISOSORBIDE MONONITRATE ER 30 MG TAB.ER.24H PO SCH (09:00)
[2023-01-30] MEDS: AMIODARONE 200 MG TAB PO SCH ×3 (10:26→20:43)
--- NOTE | 2023-01-30 10:44 | P.HPIM ---
History of Present Illness H&P Date: 01/30/23 Chief Complaint: Dyspnea This is 87-year-old female patient who presented to the ER with concerns of chest pressure with radiation to both arms and associated shortness of breath. Patient reports this is an ongoing issue with recent admission and workup. Patient states upon discharge symptoms became more frequent prompting her to the ER for further evaluation. Patient has past medical history of atrial fibrillation, hypertension, cardiac ablation, cholecystectomy. Patient was recently evaluated by cardiology services and started on amiodarone, Lopressor and Midodrine. EKG completed showing atrial fibrillation controlled rate at 87. Chest x-ray completed showing correlation for CHF with pulmonary vascular congestion. Possible trace effusion. BNP 1020. Troponins negative 3. Creatinine 1.50. She was given a dose of IV Lasix in ER. Cardiology services have been consulted. At this time patient denies any chest pain or shortness of breath. Patient denies nausea vomiting or diarrhea. Patient denies any urinary burning or frequency. Review of Systems Please refer to HPI otherwise all Past Medical History Past Medical History: Atrial Fibrillation, Hypertension Additional Past Medical History / Comment(s): Hypotension, COVID 04/11 History of Any Multi-Drug Resistant Organisms: None Reported Past Surgical History: Ablation, Cardiac Ablation, Cholecystectomy, Heart Catheterization With Stent, Orthopedic Surgery Additional Past Surgical History / Comment(s): Cardiac Ablation: Jul 2021 Past Anesthesia/Blood Transfusion Reactions: No Reported Reaction Date of Last Stent Placement:: 2013 Smoking Status: Never smoker - Past Family History Mother Family Medical History: Deep Vein Thrombosis (DVT), Pulmonary Embolus Additional Family Medical History / Comment(s): young at 52 with a "blood clot in the heart" Father Family Medical History: AFIB, Diabetes Mellitus Additional Family Medical History / Comment(s): Lived to be Medications and Allergies Home Medications Medication Instructions Recorded Confirmed Type Apixaban [Eliquis] 5 mg PO BID 03/07/22 01/29/23 History Furosemide [Lasix] 20 mg PO DAILY 03/07/22 01/29/23 History Pantoprazole [Protonix] 40 mg PO DAILY 03/07/22 01/29/23 History Ezetimibe [Zetia] 10 mg PO HS 09/28/22 01/29/23 History Potassium Chloride ER [K-Dur 10] 10 meq PO DAILY 30 Days #30 tab 10/11/22 01/29/23 Rx Aspirin EC [Ecotrin Low Dose] 81 mg PO DAILY 01/18/23 01/29/23 History Furosemide [Lasix] 40 mg PO BID PRN 01/18/23 01/29/23 History Isosorbide Mononitrate ER [Imdur] 30 mg PO DAILY 01/18/23 01/29/23 History Levothyroxine Sodium [Synthroid] 25 mcg PO DAILY 01/18/23 01/29/23 History Nitroglycerin Sl Tabs [Nitrostat] 0.4 mg SUBLINGUAL Q5M PRN 01/18/23 01/29/23 History Amiodarone [Cordarone] 400 mg PO BID 30 Days #120 tab 01/22/23 01/29/23 Rx Midodrine [ProAmatine] 5 mg PO AC-TID #180 tab 01/23/23 01/29/23 Rx Metoprolol Tartrate [Lopressor] 12.5 mg PO BID 01/29/23 01/29/23 History Allergies Allergy/AdvReac Type Severity Reaction Status Date / Time [id number] Reductase AdvReac muscle Verified 01/29/23 14:41 Inhibitor weakness Physical Exam Vitals: Vital Signs Temp Pulse Pulse Pulse Resp BP BP 01/30/23 08:15 97.5 F L 86 22 82/53 01/30/23 04:32 98.0 F 81 16 98/53 01/30/23 02:46 85 101/58 01/30/23 00:21 94/63 01/29/23 23:40 85 18 89/58 01/29/23 19:34 97.4 F L 85 18 88/57 01/29/23 18:30 97.4 F L 85 18 104/67 01/29/23 18:02 84 18 99/72 01/29/23 16:27 86 18 98/62 01/29/23 14:35 84 18 94/54 01/29/23 13:57 84 18 99/59 01/29/23 13:34 97.7 F 84 18 99/59 Pulse Ox 01/30/23 08:15 93 L 01/30/23 04:32 96 01/30/23 02:46 94 L 01/30/23 00:21 01/29/23 23:40 96 01/29/23 19:34 98 01/29/23 18:30 99 01/29/23 18:02 96 01/29/23 16:27 98 01/29/23 14:35 96 01/29/23 13:57 95 01/29/23 13:34 95 Intake and Output 01/29/23 01/30/23 01/30/23 22:59 06:59 14:59 Output Total 450 250 Balance -450 -250 Output: Urine 450 250 Other: Voiding Method External Catheter External Catheter # Voids 1 Weight 79.379 kg Head normocephalic Neck supple Lungs clear to auscultation bilaterally no wheezing or crackles Heart irregular heartbeat known atrial fibrillation Abdomen is soft nontender nondistended positive bowel sounds no hepatosplenomegaly Extremities no edema Neuro alert and orientated to 3 Results CBC & Chem 7: 01/30/23 07:31 01/30/23 07:31 Labs: Abnormal Lab Results - Last 24 Hours (Table) 01/29/23 01/29/23 01/30/23 Range/Units 13:42 13:42 07:31 RDW 16.5 H 16.6 H (11.5-15.5) % Sodium 135 L (137-145) mmol/L Potassium 3.4 L (3.5-5.1) mmol/L Chloride 97 L (98-107) mmol/L BUN 36 H (7-17) mg/dL Creatinine 1.50 H (0.52-1.04) mg/dL Glucose 123 H (74-99) mg/dL Total Protein (6.3-8.2) g/dL 01/30/23 Range/Units 07:31 RDW (11.5-15.5) % Sodium 136 L (137-145) mmol/L Potassium (3.5-5.1) mmol/L Chloride (98-107) mmol/L BUN 30 H (7-17) mg/dL Creatinine 1.30 H (0.52-1.04) mg/dL Glucose (74-99) mg/dL Total Protein 6.0 L (6.3-8.2) g/dL Thrombosis Risk Factor Assmnt - Choose All That Apply Any of the Below Risk Factors Present?: Yes Each Factor Represents 1 point: Obesity (BMI >25) Other Risk Factors: Yes Each Risk Factor Represents 3 Points: Age 75 years or older, Family history of DVT/PE, History of DVT/PE Thrombosis Risk Factor Assessment Total Risk Factor Score: 10 Thrombosis Risk Factor Assessment Level: High Risk Assessment and Plan Assessment: 1. Chest pressure with radiation to arms. Troponin negative 3. Cardiology services consulted 2. Dyspnea secondary to acute exacerbation of CHF. 3. History of atrial fibrillation with previous history of ablation 4. History of coronary artery disease with history of angioplasty ST and stent placement to LAD 5. History of pulmonary embolism 6. History of chronic shortness breath 7. History of cholecystectomy 8. History of orthostatic hypertension DVT prophylaxis eliquis. GI prophylaxis Protonix Cardiology service consulted repeat labs ordered Time with Patient: Greater than 30 (Greater than 60% of the total time spent in counseling and coordination of care)
[2023-01-30] MEDS ORDERED: SODIUM CHLORIDE 0.9% 500 ML IV SCH (10:45)
[2023-01-30 10:47] VITALS: BMI 29.1
--- NOTE | 2023-01-30 11:28 | P.CRDCN ---
History of Present Illness History of present illness: HISTORY OF PRESENT ILLNESS: 87-year-old female with a past medical history significant for atrial fibrillation with previous ablation, atrial tachycardia ablation in September 2022, pulmonary embolism, valvular heart disease, coronary artery disease with previous stenting, and chronic shortness of breath. Patient follows in the office with Dr. Soto. We have been asked to see the patient in consultation for acute pulmonary edema. Patient states she presented to the hospital with a chief complaint of chest pain. She also reports worsening shortness of breath. The ER physician believed the patient was in pulmonary edema and started her on IV lasix. Upon examination, the patient does not appear to be in heart failure. Patient continues to report mild chest discomfort. EKG completed which was nonischemic. Troponins have been negative. She reports having alot of burping this morning which mild stomach upset. * EKG sinus mechanism with no signs of acute ischemia * Chest xray left basilar atelectasis, less likely pneumonia. Underlying chronic interstitial lung disease * Laboratory data: WBC 6.8. Hemoglobin 11.5. Platelet count 381. Sodium 134. Potassium 4.3. BUN 21. Creatinine 0.98. * Current home cardiac medications include Midodrine 5mg TID Lasix 20 mg daily, aspirin 81 mg daily, Imdur 30 mg daily, Zetia 10 mg at night, Lasix 40 mg daily as needed, and Eliquis 5mg BID * Patient underwent FR[facility]ISCA at [facility] in October 2022 revealing ejection fraction 60%, trace aortic regurgitation, mild mitral regurgitation, mild tricuspid regurgitation * Patient underwent cardiac catheterization in October 2022 at [place] revealing patent stent in the LAD. OM 1 and 2 with severe disease otherwise nonobstructive coronary artery disease. Medical management was recommended. * Most recent echocardiogram obtained in September 2022 reveals ejection fraction 55-60%, severe MR, mild AR, severe TR and moderate to severe pulmonary hypertension REVIEW OF SYSTEMS: At the time of my exam: CONSTITUTIONAL: Denies fever or chills. HEENT: Denies blurred vision, vision changes, or eye pain. Denies hemoptysis CARDIOVASCULAR: Denies chest pain. Denies orthopnea. Denies PND. Denies palpitations RESPIRATORY: Denies shortness of breath. GASTROINTESTINAL: Denies abdominal pain. Denies nausea or vomiting. HEMATOLOGIC: Denies bleeding disorders. GENITOURINARY: Denies any blood in urine. SKIN: Denies pruitis. Denies rash. PHYSICAL EXAM: VITAL SIGNS: Reviewed. GENERAL: Well-developed in no acute distress. HEENT: Head is normocephalic. Pupils are equal, round. Sclerae anicteric. Mucous membranes of the mouth are moist. Neck supple. No JVD or thyromegaly LUNGS: Respirations even and unlabored. Lungs essentially clear to auscultation bilaterally. HEART: Regular rate and rhythm. S1 and S2 heard. ABDOMEN: Soft. Nondistended. Nontender. EXTREMITIES: Normal range of motion. No clubbing or cyanosis. Peripheral pulses intact. No lower extremity edema NEUROLOGIC: Awake and alert. Oriented x 3. ASSESSMENT: Chest pain, troponin negative x 3 Hypotension Chronic shortness of breath, etiology unclear Coronary artery disease with previous stenting to the LAD Valvular heart disease History of atrial tachycardia ablation, September 2022 History of atrial fibrillation with previous ablation History of pulmonary embolism PLAN: An acute coronary event has been ruled out No evidence of pulmonary edema. Discontinue IV lasix. Discontinue Imdur secondary to hypotension Increase activity as tolerated Wean off oxygen and monitor O2 sats Continue to monitor blood pressure Further recommendations pending patient course Nurse practitioner note has been reviewed by physician. Signing provider agrees with the documented findings, assessment, and plan of care. Past Medical History Past Medical History: Atrial Fibrillation, Hypertension Additional Past Medical History / Comment(s): Hypotension, COVID 04/11 History of Any Multi-Drug Resistant Organisms: None Reported Past Surgical History: Ablation, Cardiac Ablation, Cholecystectomy, Heart Catheterization With Stent, Orthopedic Surgery Additional Past Surgical History / Comment(s): Cardiac Ablation: Jul 2021 Past Anesthesia/Blood Transfusion Reactions: No Reported Reaction Date of Last Stent Placement:: 2013 Smoking Status: Never smoker - Past Family History Mother Family Medical History: Deep Vein Thrombosis (DVT), Pulmonary Embolus Additional Family Medical History / Comment(s): young at 52 with a "blood clot in the heart" Father Family Medical History: AFIB, Diabetes Mellitus Additional Family Medical History / Comment(s): Lived to be Medications and Allergies Home Medications Medication Instructions Recorded Confirmed Type Apixaban [Eliquis] 5 mg PO BID 03/07/22 01/29/23 History Furosemide [Lasix] 20 mg PO DAILY 03/07/22 01/29/23 History Pantoprazole [Protonix] 40 mg PO DAILY 03/07/22 01/29/23 History Ezetimibe [Zetia] 10 mg PO HS 09/28/22 01/29/23 History Potassium Chloride ER [K-Dur 10] 10 meq PO DAILY 30 Days #30 tab 10/11/22 01/29/23 Rx Aspirin EC [Ecotrin Low Dose] 81 mg PO DAILY 01/18/23 01/29/23 History Furosemide [Lasix] 40 mg PO BID PRN 01/18/23 01/29/23 History Isosorbide Mononitrate ER [Imdur] 30 mg PO DAILY 01/18/23 01/29/23 History Levothyroxine Sodium [Synthroid] 25 mcg PO DAILY 01/18/23 01/29/23 History Nitroglycerin Sl Tabs [Nitrostat] 0.4 mg SUBLINGUAL Q5M PRN 01/18/23 01/29/23 History Amiodarone [Cordarone] 400 mg PO BID 30 Days #120 tab 01/22/23 01/29/23 Rx Midodrine [ProAmatine] 5 mg PO AC-TID #180 tab 01/23/23 01/29/23 Rx Metoprolol Tartrate [Lopressor] 12.5 mg PO BID 01/29/23 01/29/23 History Allergies Allergy/AdvReac Type Severity Reaction Status Date / Time [id number] Reductase AdvReac muscle Verified 01/29/23 14:41 Inhibitor weakness Physical Exam Vitals: Vital Signs Temp Pulse Pulse Pulse Resp BP BP 01/30/23 08:15 97.5 F L 86 22 82/53 01/30/23 04:32 98.0 F 81 16 98/53 01/30/23 02:46 85 101/58 01/30/23 00:21 94/63 01/29/23 23:40 85 18 89/58 01/29/23 19:34 97.4 F L 85 18 88/57 01/29/23 18:30 97.4 F L 85 18 104/67 01/29/23 18:02 84 18 99/72 01/29/23 16:27 86 18 98/62 01/29/23 14:35 84 18 94/54 01/29/23 13:57 84 18 99/59 01/29/23 13:34 97.7 F 84 18 99/59 Pulse Ox 01/30/23 08:15 93 L 01/30/23 04:32 96 01/30/23 02:46 94 L 01/30/23 00:21 01/29/23 23:40 96 01/29/23 19:34 98 01/29/23 18:30 99 01/29/23 18:02 96 01/29/23 16:27 98 01/29/23 14:35 96 01/29/23 13:57 95 01/29/23 13:34 95 Intake and Output 01/29/23 01/30/23 01/30/23 22:59 06:59 14:59 Output Total 450 250 Balance -450 -250 Output: Urine 450 250 Other: Voiding Method External Catheter External Catheter Weight 79.379 kg Results 01/30/23 07:31 01/30/23 07:31 Cardiac Enzymes 01/29/23 01/29/23 01/30/23 Range/Units 13:42 13:42 03:06 AST 22 (14-36) U/L Troponin I <0.012 <0.012 (0.000-0.034) ng/mL 01/30/23 01/30/23 Range/Units 07:31 07:31 AST 20 (14-36) U/L Troponin I <0.012 (0.000-0.034) ng/mL Coagulation 01/29/23 Range/Units 13:42 PT 10.9 (9.0-12.0) sec APTT 25.4 (22.0-30.0) sec CBC 01/29/23 01/30/23 Range/Units 13:42 07:31 WBC 5.6 7.1 (3.8-10.6) k/uL RBC 4.60 4.22 (3.80-5.40) m/uL Hgb 12.6 11.5 (11.4-16.0) gm/dL Hct 39.0 35.6 (34.0-46.0) % Plt Count 381 351 (150-450) k/uL Comprehensive Metabolic Panel 01/29/23 01/30/23 Range/Units 13:42 07:31 Sodium 135 L 136 L (137-145) mmol/L Potassium 3.4 L 3.8 (3.5-5.1) mmol/L Chloride 97 L 99 (98-107) mmol/L Carbon Dioxide 24 29 (22-30) mmol/L BUN 36 H 30 H (7-17) mg/dL Creatinine 1.50 H 1.30 H (0.52-1.04) mg/dL Glucose 123 H 89 (74-99) mg/dL Calcium 9.2 8.5 (8.4-10.2) mg/dL AST 22 20 (14-36) U/L ALT 19 16 (4-34) U/L Alkaline Phosphatase 119 121 (38-126) U/L Total Protein 6.7 6.0 L (6.3-8.2) g/dL Albumin 4.0 3.5 (3.5-5.0) g/dL Current Medications Generic Name Dose Route Start Last Admin Trade Name Freq PRN Reason Stop Dose Admin Amiodarone HCl 400 mg 01/29/23 21:15 01/29/23 21:31 Amiodarone 200 Mg Tab PO 400 mg BID DAMION Administration Apixaban 5 mg 01/29/23 21:15 01/30/23 08:18 Apixaban 5 Mg Tab PO 5 mg BID DAMION Administration Protocol Aspirin 81 mg 01/30/23 09:00 01/30/23 08:18 Aspirin 81 Mg PO 81 mg DAILY DAMION Administration Ezetimibe 10 mg 01/30/23 21:00 Ezetimibe 10 Mg Tab PO HS DAMION Furosemide 20 mg 01/29/23 15:15 01/30/23 02:45 Furosemide 10 Mg/Ml 4 Ml Vial IV 20 mg Q12H DAMION Administration Isosorbide Mononitrate 30 mg 01/30/23 09:00 Isosorbide Mononitrate Er 30 Mg Tab.Er.24h PO DAILY DAMION Levothyroxine Sodium 25 mcg 01/30/23 06:30 01/30/23 06:18 Levothyroxine 25 Mcg Tab PO 25 mcg DAILY@0630 DAMION Administration Metoprolol Tartrate 12.5 mg 01/29/23 21:15 01/30/23 00:21 Metoprolol Tartrate 12.5 Mg Tab PO 12.5 mg BID DAMION Administration Midodrine 5 mg 01/29/23 21:15 01/30/23 06:19 Midodrine 5 Mg Tab PO 5 mg AC-TID DAMION Administration Nitroglycerin 0.4 mg 01/29/23 21:01 Nitroglycerin Sl Tabs 0.4 Mg Tab SUBLINGUAL Q5M PRN Chest Pain Pantoprazole Sodium 40 mg 01/30/23 07:30 01/30/23 06:18 Pantoprazole 40 Mg Tablet PO 40 mg AC-[id number] DAMION Administration Potassium Chloride 10 meq 01/30/23 09:00 01/30/23 08:18 Potassium Chloride Er 10 Meq Tab.Er.Prt PO 10 meq DAILY DAMION Administration Intake and Output 01/29/23 01/30/23 01/30/23 22:59 06:59 14:59 Output Total 450 250 Balance -450 -250 Output: Urine 450 250 Other: Voiding Method External Catheter External Catheter Weight 79.379 kg 01/30/23 07:31 01/30/23 07:31
[2023-01-30] MEDS ORDERED: MIDODRINE 5 MG TAB PO ONE (14:21)
[2023-01-30] MEDS ORDERED: ALPRAZolam 0.25 MG TAB PO PRN (15:41)
[2023-01-30] MEDS ORDERED: EZETIMIBE 10 MG TAB PO SCH (21:00)
[2023-01-30] MEDS: ALBUTEROL NEBULIZED 2.5 MG/3 ML INHALATION PRN (22:19)
[2023-01-31] MEDS: ALBUTEROL NEBULIZED 2.5 MG/3 ML INHALATION PRN ×5 (00:23→14:32)
--- NOTE | 2023-01-31 02:14 | P.CNPUL ---
History of Present Illness Consult date: 01/31/23 Requesting physician: Regan James Reason for consult: dyspnea Chief complaint: Shortness of breath and substernal chest pressure History of present illness: I am seeing this patient in new consultation today 01/31/2023 for acute on chronic dyspnea. Patient is an 87-year-old female who was recently established with Dr. Maddox in the office, for evaluation of her ongoing chronic shortness of breath. Patient's medical history is significant for proximal atrial fibrillation post-ablation and anticoagulated with Eliquis, pulmonary embolism, diastolic congestive heart failure, coronary artery disease with previous stent, hiatal hernia, GERD. Patient has reportedly been suffering from ongoing, progressive shortness of breath for the past 5 years. She is not chronically oxygen dependent. Chest CTA back on 10/09/2022 showed no evidence of pulmonary embolism and no other parenchymal lung abnormalities. She did have a pulmonary function test in the office, which revealed no evidence of obstructive or restrictive disease. FEV1 was 105% of predicted and FVC was 99% of predicted. FEV1/FVC ratio of 78%. Total lung capacity was normal. DLCO was 56% of predicted. Patient had a right and left sided heart catheterization and FRANCISCA at [facility] in October,. Heart catheterization showed severe disease of OM1 and OM2, no other significant obstructive coronary artery disease, patent stent in the mid LAD, mean PA pressure of 14 mmhg. Transesophageal echocardiogram estimated a left ventricular ejection fraction at 60%, and there was mild mitral regurgitation. Prior echocardiogram at our facility from September, showed grade 4 diastolic dysfunction, preserved ejection fraction with concentric left ventricular hypertrophy, severe mitral regurgitation, severe tricuspid regurgitation, an RVSP of 74 mmhg consistent with moderate to severe pulmonary hypertension. Most recent follow-up transthoracic echocardiogram done on 01/19/2023 shows a left ventricular ejection fraction estimated at 45%, no mitral valve abnormalities, mild to trace tricuspid regurgitation, mild aortic regurgitation, and an RVSP of 19. Patient presented to the emergency room on January 29, complaining of worsening shortness of breath and substernal nonradiating chest pressure. She states that the shortness breath has progressively gotten worse. She states that she is out of breath even when ambulating to the restroom, and now cannot hold a prolonged conversation on the phone without experiencing shortness of breath. She denies any fever, chills, cough, hemoptysis. She denies any sick contacts. She denies ever being a tobacco smoker or having any history of lung disease. She does report associated heart palpitations when experiencing the shortness of breath. Before she came in, patient noted some low blood pressure readings, on her home blood pressure machine. She denies any lower extremity swelling, orthopnea, paroxysmal nocturnal dyspnea, or recent syncopal events. Patient is currently sitting up in bed, on 2 L nasal cannula, in no acute distress. Chest x-ray on arrival showed some likely left basilar atelectasis and possible underlying chronic interstitial changes. CBC on arrival is unremarkable. Most recent BMP from yesterday shows a sodium 136, potassium 3.8, chloride 99, serum CO2 29, BUN 30, creatinine 1.3, glucose 89. Serial troponins have been negative. NT proBNP was 1420. Vital signs are stable. Review of Systems REVIEW OF SYSTEMS: CONSTITUTIONAL: Denies any recent significant weight loss or weight gain. EYES: Denies change in vision. EARS, NOSE, MOUTH, THROAT: Denies headaches, denies sore throat. CARDIOVASCULAR: See HPI. RESPIRATORY: See HPI GASTROINTESTINAL: Denies change in appetite, abdominal pain, nausea and vomiting, or diarrhea. Does report occasional indigestion and reflux GENITOURINARY: Denies hematuria, denies infections. MUSKULOSKELETAL: Denies pain, denies swelling. INTEGUMENTARY: Denies rash, denies eczema. NEUROLOGICAL: Denies recent memory loss, no recent seizure activity. PSYCHIATRIC: Denies anxiety, denies depression. HEMATOLOGIC/LYMPHATIC: Denies anemia, denies enlarged lymph node Past Medical History Past Medical History: Atrial Fibrillation, Hypertension Additional Past Medical History / Comment(s): Hypotension, COVID 04/11 History of Any Multi-Drug Resistant Organisms: None Reported Past Surgical History: Ablation, Cardiac Ablation, Cholecystectomy, Heart Catheterization With Stent, Orthopedic Surgery Additional Past Surgical History / Comment(s): Cardiac Ablation: Jul 2021 Past Anesthesia/Blood Transfusion Reactions: No Reported Reaction Date of Last Stent Placement:: 2013 Smoking Status: Never smoker - Past Family History Mother Family Medical History: Deep Vein Thrombosis (DVT), Pulmonary Embolus Additional Family Medical History / Comment(s): young at 52 with a "blood clot in the heart" Father Family Medical History: AFIB, Diabetes Mellitus Additional Family Medical History / Comment(s): Lived to be Medications and Allergies Home Medications Medication Instructions Recorded Confirmed Type Apixaban [Eliquis] 5 mg PO BID 03/07/22 01/29/23 History Furosemide [Lasix] 20 mg PO DAILY 03/07/22 01/29/23 History Pantoprazole [Protonix] 40 mg PO DAILY 03/07/22 01/29/23 History Ezetimibe [Zetia] 10 mg PO HS 09/28/22 01/29/23 History Potassium Chloride ER [K-Dur 10] 10 meq PO DAILY 30 Days #30 tab 10/11/22 01/29/23 Rx Aspirin EC [Ecotrin Low Dose] 81 mg PO DAILY 01/18/23 01/29/23 History Furosemide [Lasix] 40 mg PO BID PRN 01/18/23 01/29/23 History Isosorbide Mononitrate ER [Imdur] 30 mg PO DAILY 01/18/23 01/29/23 History Levothyroxine Sodium [Synthroid] 25 mcg PO DAILY 01/18/23 01/29/23 History Nitroglycerin Sl Tabs [Nitrostat] 0.4 mg SUBLINGUAL Q5M PRN 01/18/23 01/29/23 History Amiodarone [Cordarone] 400 mg PO BID 30 Days #120 tab 01/22/23 01/29/23 Rx Midodrine [ProAmatine] 5 mg PO AC-TID #180 tab 01/23/23 01/29/23 Rx Metoprolol Tartrate [Lopressor] 12.5 mg PO BID 01/29/23 01/29/23 History Allergies Allergy/AdvReac Type Severity Reaction Status Date / Time [id number] Reductase AdvReac muscle Verified 01/29/23 14:41 Inhibitor weakness Physical Exam Vitals: Vital Signs Temp Pulse Pulse Pulse Resp BP Pulse Ox 01/31/23 00:33 76 01/31/23 00:25 76 01/30/23 23:03 97.6 F 81 18 102/63 97 01/30/23 22:30 78 01/30/23 22:22 78 01/30/23 19:45 97.7 F 78 20 91/57 97 01/30/23 17:55 85 20 86/60 91 L 01/30/23 12:05 98 F 89 20 87/59 93 L 01/30/23 10:43 93 L 01/30/23 08:15 97.5 F L 86 22 82/53 93 L 01/30/23 04:32 98.0 F 81 16 98/53 96 01/30/23 02:46 85 101/58 94 L Intake and Output 01/30/23 01/30/23 01/31/23 14:59 22:59 06:59 Intake Total 180 180 Balance 180 180 Intake: Oral 180 180 Other: Voiding Method External Catheter # Voids 1 1 Weight 79.379 kg GENERAL EXAM: Alert, 87-year-old white female, comfortable in no apparent distress. HEAD: Normocephalic and atraumatic EYES: Normal reaction of pupils, equal size. NOSE: Clear with pink turbinates. THROAT: No erythema or exudates. NECK: No masses, no JVD. CHEST: No chest wall deformity. LUNGS: Equal air entry with few bibasilar inspiratory crackles. No wheezes or rhonchi. On 2 L nasal cannula. No conversational dyspnea or accessory muscle use.. CVS: S1 and S2 normal with no audible murmur, regular rhythm. No extra heart sounds ABDOMEN: No hepatosplenomegaly, active bowel sounds, no guarding or rigidity. SPINE: No scoliosis or deformity SKIN: No rashes CENTRAL NERVOUS SYSTEM: No focal deficits, tone is normal in all 4 extremities. EXTREMITIES: There is no peripheral edema, clubbing, or cyanosis. Peripheral pulses are intact. Results - Laboratory Findings CBC and BMP: 01/30/23 07:31 01/30/23 07:31 PT/INR, D-dimer PT 10.9 sec (9.0-12.0) 01/29/23 13:42 INR 1.0 (<1.2) 01/29/23 13:42 Abnormal lab findings: Abnormal Labs 01/29/23 01/29/23 01/30/23 13:42 13:42 07:31 RDW 16.5 H 16.6 H Sodium 135 L Potassium 3.4 L Chloride 97 L BUN 36 H Creatinine 1.50 H Glucose 123 H Total Protein 01/30/23 07:31 RDW Sodium 136 L Potassium Chloride BUN 30 H Creatinine 1.30 H Glucose Total Protein 6.0 L - Diagnostic Findings Chest x-ray: image reviewed Assessment and Plan Assessment: Chronic progressive dyspnea, currently under investigation. Chest CTA back on 10/09/2022 showed no evidence of pulmonary embolism and no other parenchymal lung abnormalities. She did have a pulmonary function test in the office, which revealed no evidence of obstructive or restrictive disease. FEV1 was 105% of predicted and FVC was 99% of predicted. FEV1/FVC ratio of 78%. Total lung capacity was normal. DLCO was 56% of predicted. Patient had a right and left sided heart catheterization and FRANCISCA at [facility] in October,. Heart catheterization showed severe disease of OM1 and 2, no other significant obstructive coronary artery disease, patent stent in the mid LAD, mean PA pressure of 14 mmhg. Transesophageal echocardiogram estimated a left ventricular ejection fraction at 60%, mild mitral regurgitation. Prior echocardiogram at our facility, from September,, showed grade 4 diastolic dysfunction, a preserved ejection fraction with concentric left ventricular hypertrophy, severe mitral regurgitation, severe tricuspid regurgitation, an RVSP of 74 and was consistent with moderate to severe pulmonary hypertension. Most recent follow-up transthoracic echocardiogram done on 01/19/2023 shows a left ventricular ejection fraction estimated at 45%, no mitral valve abnormalities, mild to trace tricuspid regurgitation, mild aortic regurgitation, and an RVSP of 19. Acute hypoxemic respiratory failure, currently on 2 L nasal cannula. Currently oxygenating at 98%. Chest x-ray shows likely left basilar atelectasis, and underlying chronic interstitial changes. Hypotension, midodrine was increased to 10 mg 3 times a day. Acute kidney injury, improving History of proximal atrial fibrillation status post ablation and anticoagulated on Eliquis. Rate control with amiodarone on outpatient basis. Currently in normal sinus rhythm with first-degree AV block. History of pulmonary embolism, most recent chest CTA from September, shows no evidence of pulmonary embolism. Patient is on long-term anticoagulation, and clinical suspicion for PE is low Coronary artery disease, with previous stenting to the LAD Hypothyroidism Hiatal hernia GERD Plan: Patient's medications, labs, chest x-ray reviewed Etiology of ongoing dyspnea is unclear at this point Continue supplemental oxygen, and may wean down FiO2 as tolerated May continue when necessary albuterol, as the patient states this does help her dyspnea Anticoagulated with Eliquis We will continue to follow I have personally seen and examined the patient, performed the documentation and the assessment and plan as written. Number of minutes spent on the visit:20 Time with Patient: Greater than 30
[2023-01-31] MEDS: PANTOPRAZOLE 40 MG TABLET PO SCH (06:18)
[2023-01-31] MEDS: MIDODRINE 5 MG TAB PO SCH ×2 (06:18→11:35)
[2023-01-31] MEDS: LEVOTHYROXINE 25 MCG TAB PO SCH (06:18)
[2023-01-31 07:56] LABS: Anisocytosis Slight; Basophils % (A) 0 %; Eosinophils # (A) 0.1 k/uL (0-0.7); Eosinophils % (A) 1 %; HCT 33.5 % (34.0-46.0); HGB 10.6 gm/dL (11.4-16.0); Lymphocytes # (A) 1.1 k/uL (1.0-4.8); Lymphocytes % (A) 13 %; MCH 26.8 pg (25.0-35.0); MCHC 31.7 g/dL (31.0-37.0); MCV 84.6 fL (80.0-100.0); Mean Platelet Volume 7.3; Monocytes # (A) 0.6 k/uL (0-1.0); Monocytes % (A) 7 %; Neutrophils # (A) 6.2 k/uL (1.3-7.7); Neutrophils % (A) 75 %; Platelet Count 331 k/uL (150-450); RBC 3.96 m/uL (3.80-5.40); RDW 16.6 % (11.5-15.5); WBC 8.3 k/uL (3.8-10.6)
[2023-01-31 08:15] LABS: ALT 19 U/L (4-34); AST 24 U/L (14-36); African American GFR (CKD) 42 (>60 ml/min/1.73 sqM); Albumin 3.2 g/dL (3.5-5.0); Alkaline Phosphatase 108 U/L (38-126); Anion Gap 8 mmol/L; Blood Urea Nitrogen 28 mg/dL (7-17); Calcium 8.5 mg/dL (8.4-10.2); Carbon Dioxide 27 mmol/L (22-30); Chloride 99 mmol/L (98-107); Glucose 105 mg/dL (74-99); Non-African American GFR(CKD) 36 (>60 ml/min/1.73 sqM); Sodium 134 mmol/L (137-145); Total Bilirubin 0.8 mg/dL (0.2-1.3); Total Protein 5.6 g/dL (6.3-8.2)
[2023-01-31] MEDS: APIXABAN 5 MG TAB PO SCH (09:19)
[2023-01-31] MEDS: METOPROLOL TARTRATE 12.5 MG TAB PO SCH (09:19)
[2023-01-31] MEDS: ASPIRIN 81 MG PO SCH (09:19)
[2023-01-31] MEDS: AMIODARONE 200 MG TAB PO SCH (09:19)
[2023-01-31] MEDS: POTASSIUM CHLORIDE ER 10 MEQ TAB.ER.PRT PO SCH (09:19)
[2023-01-31] MEDS ORDERED: ALBUTEROL HFA INHALER INHALATION PRN (09:27)
--- NOTE | 2023-01-31 11:04 | P.PN ---
Subjective HISTORY OF PRESENT ILLNESS: 87-year-old female with a past medical history significant for atrial fibrillation with previous ablation, atrial tachycardia ablation in September 2022, pulmonary embolism, valvular heart disease, coronary artery disease with previous stenting, and chronic shortness of breath. Patient follows in the office with Dr. Soto. We have been asked to see the patient in consultation for acute pulmonary edema. Patient states she presented to the hospital with a chief complaint of chest pain. She also reports worsening shortness of breath. The ER physician believed the patient was in pulmonary edema and started her on IV lasix. Upon examination, the patient does not appear to be in heart failure. Patient continues to report mild chest discomfort. EKG completed which was nonischemic. Troponins have been negative. She reports having alot of burping this morning which mild stomach upset. * EKG sinus mechanism with no signs of acute ischemia * Chest xray left basilar atelectasis, less likely pneumonia. Underlying chronic interstitial lung disease * Laboratory data: WBC 6.8. Hemoglobin 11.5. Platelet count 381. Sodium 134. Potassium 4.3. BUN 21. Creatinine 0.98. * Current home cardiac medications include Midodrine 5mg TID Lasix 20 mg daily, aspirin 81 mg daily, Imdur 30 mg daily, Zetia 10 mg at night, Lasix 40 mg daily as needed, and Eliquis 5mg BID * Patient underwent FRANCISCA at [facility] in October 2022 revealing ejection fraction 60%, trace aortic regurgitation, mild mitral regurgitation, mild tricuspid regurgitation * Patient underwent cardiac catheterization in October 2022 at [place] revealing patent stent in the LAD. OM 1 and 2 with severe disease otherwise nonobstruc tive coronary artery disease. Medical management was recommended. * Most recent echocardiogram obtained in September 2022 reveals ejection fraction 55-60%, severe MR, mild AR, severe TR and moderate to severe pulmonary hypertension 01/31/2023 Patient examined this morning at the bedside. Patient denies any further episodes of chest pain or pressure. She was started on albuterol treatments which she states has helped her shortness of breath. Midodrine increased yesterday and has had improvement in her blood pressures back to her baseline which is in the 90s. PHYSICAL EXAM: VITAL SIGNS: Reviewed. GENERAL: Well-developed in no acute distress. HEENT: Head is normocephalic. Pupils are equal, round. Sclerae anicteric. Mucous membranes of the mouth are moist. Neck supple. No JVD or thyromegaly LUNGS: Respirations even and unlabored. Lungs essentially clear to auscultation bilaterally. HEART: Regular rate and rhythm. S1 and S2 heard. ABDOMEN: Soft. Nondistended. Nontender. EXTREMITIES: Normal range of motion. No clubbing or cyanosis. Peripheral pulses intact. No lower extremity edema NEUROLOGIC: Awake and alert. Oriented x 3. ASSESSMENT: Chest pain, troponin negative x 3 Hypotension Chronic shortness of breath, etiology unclear Coronary artery disease with previous stenting to the LAD Valvular heart disease History of atrial tachycardia ablation, September 2022 History of atrial fibrillation with previous ablation History of pulmonary embolism PLAN: Continue current cardiac medications Pulmonary following. Patient is being set up for home oxygen. Stable for discharge from a cardiac standpoint Further recommendations pending patient course Nurse practitioner note has been reviewed by physician. Signing provider agrees with the documented findings, assessment, and plan of care. Objective - Vital Signs Vital signs: Vital Signs Temp 98.4 F 01/31/23 09:15 Pulse 84 01/31/23 10:42 Resp 16 01/31/23 10:42 BP 94/56 01/31/23 09:15 Pulse Ox 94 L 01/31/23 09:15 FiO2 Intake & Output 01/30/23 01/31/23 01/31/23 18:59 06:59 18:59 Intake Total 360 180 Balance 360 180 Weight 79.379 kg Intake: Oral 360 180 Other: Voiding Method External Catheter # Voids 1 1 - Labs CBC & Chem 7: 01/31/23 07:07 01/31/23 07:07 Labs: Abnormal Lab Results - Last 24 Hours (Table) 01/31/23 01/31/23 Range/Units 07:07 07:07 Hgb 10.6 L (11.4-16.0) gm/dL Hct 33.5 L (34.0-46.0) % RDW 16.6 H (11.5-15.5) % Sodium 134 L (137-145) mmol/L BUN 28 H (7-17) mg/dL Creatinine 1.33 H (0.52-1.04) mg/dL Glucose 105 H (74-99) mg/dL Total Protein 5.6 L (6.3-8.2) g/dL Albumin 3.2 L (3.5-5.0) g/dL
[2023-01-31 13:14] VITALS: BP 90/57; TEMP 98.3
--- NOTE | 2023-01-31 13:21 | P.DS ---
Providers Date of admission: 01/29/23 15:14 Expected date of discharge: 01/31/23 Attending physician: Regan James Consults: 01/29/23 15:12 Consult Physician Routine Consulting Provider: [facility] Consult Reason/Comments: Acute pulmonary edema Do you want consulting provider notified?: Yes 01/30/23 15:40 Consult Physician Routine Consulting Provider: Contreras Weiner Reason/Comments: shortness of breath Do you want consulting provider notified?: Yes Primary care physician: Regan Jacob [facility] Course: Diagnosis on discharge: 1. Chest pressure with radiation to arms. Troponin negative 3. Cardiology services consulted 2. Dyspnea secondary to acute exacerbation of CHF. 3. History of atrial fibrillation with previous history of ablation 4. History of coronary artery disease with history of angioplasty ST and stent placement to LAD 5. History of pulmonary embolism 6. History of chronic shortness breath 7. History of cholecystectomy 8. History of orthostatic hypertension 9. History of severe mitral regurgitation and moderate to severe pulmonary hypertension Hospital course: This is 87-year-old female patient who presented to the ER with concerns of chest pressure with radiation to both arms and associated shortness of breath. Patient reports this is an ongoing issue with recent admission and workup. Patient states upon discharge symptoms became more frequent prompting her to the ER for further evaluation. Patient has past medical history of atrial fibrillation, hypertension, cardiac ablation, cholecystectomy. Patient was recently evaluated by cardiology services and started on amiodarone, Lopressor and Midodrine. EKG completed showing atrial fibrillation controlled rate at 87. Chest x-ray completed showing correlation for CHF with pulmonary vascular congestion. Possible trace effusion. BNP 1020. Troponins negative 3. Creatinine 1.50. She was given a dose of IV Lasix in ER. Cardiology services have been consulted. At this time patient denies any chest pain or shortness of breath. Patient denies nausea vomiting or diarrhea. Patient denies any urinary burning or frequency. On 01/31/2023 patient was seen and examined on the telemetry floor she is alert and oriented 3 in no apparent distress there is no fever or chills no headache or dizziness no chest pain no shortness of breath no cough no nausea or vomiting no abdominal pain no diarrhea no blood in the stools no burning with urination no frequency or urgency and no hematuria, yesterday pulse ox was down to 86% however today patient was able to ambulate without oxygen and her oxygen saturation was 96%. Patient was evaluated by pulmonary and cardiology and was cleared for discharge. She will be discharged home today Will follow in the office within one week. Plan - Discharge Summary Discharge Rx Participant: No New Discharge Prescriptions: New Midodrine [ProAmatine] 10 mg PO AC-TID tab Albuterol Inhaler [Ventolin Hfa Inhaler] 2 puff INHALATION RT-QID PRN each PRN Reason: Shortness Of Breath Or Wheezing Potassium Chloride ER [K-Dur 10] 10 meq PO DAILY tab Amiodarone [Cordarone] 200 mg PO BID tab Furosemide [Lasix] 20 mg PO DAILY 30 Days #30 tab Continue Levothyroxine Sodium [Synthroid] 25 mcg PO DAILY Pantoprazole [Protonix] 40 mg PO DAILY Apixaban [Eliquis] 5 mg PO BID Ezetimibe [Zetia] 10 mg PO HS Nitroglycerin Sl Tabs [Nitrostat] 0.4 mg SUBLINGUAL Q5M PRN PRN Reason: Chest Pain Aspirin EC [Ecotrin Low Dose] 81 mg PO DAILY Metoprolol Tartrate [Lopressor] 12.5 mg PO BID Discontinued Furosemide [Lasix] 20 mg PO DAILY Potassium Chloride ER [K-Dur 10] 10 meq PO DAILY 30 Days #30 tab Isosorbide Mononitrate ER [Imdur] 30 mg PO DAILY Furosemide [Lasix] 40 mg PO BID PRN PRN Reason: Edema Amiodarone [Cordarone] 400 mg PO BID 30 Days #120 tab Midodrine [ProAmatine] 5 mg PO AC-TID #180 tab Discharge Medication List Apixaban [Eliquis] 5 mg PO BID 03/07/22 [History] Pantoprazole [Protonix] 40 mg PO DAILY 03/07/22 [History] Ezetimibe [Zetia] 10 mg PO HS 09/28/22 [History] Aspirin EC [Ecotrin Low Dose] 81 mg PO DAILY 01/18/23 [History] Levothyroxine Sodium [Synthroid] 25 mcg PO DAILY 01/18/23 [History] Nitroglycerin Sl Tabs [Nitrostat] 0.4 mg SUBLINGUAL Q5M PRN 01/18/23 [History] Metoprolol Tartrate [Lopressor] 12.5 mg PO BID 01/29/23 [History] Albuterol Inhaler [Ventolin Hfa Inhaler] 2 puff INHALATION RT-QID PRN each 01/31/23 [Rx] Amiodarone [Cordarone] 200 mg PO BID tab 01/31/23 [Rx] Furosemide [Lasix] 20 mg PO DAILY 30 Days #30 tab 01/31/23 [Rx] Midodrine [ProAmatine] 10 mg PO AC-TID tab 01/31/23 [Rx] Potassium Chloride ER [K-Dur 10] 10 meq PO DAILY tab 01/31/23 [Rx] Follow up Appointment(s)/Referral(s): Regan James MD [Primary Care Provider] - 02/02/23 3:00 pm () Patient Instructions/Handouts: Shortness of Breath (DC)
[2023-01-31 14:35] VITALS: PULSE 88; RESP 16
== END 2023-01-31 15:25 | disposition home or self-care (01) ==
LOC: EC 13:26 → INTOOBSV 15:14 → 3SCARD 15:14
PROVIDERS: ADMIT Internal Medicine; ATTEND Internal Medicine
DX: J84.9 Interstitial pulmonary disease, unspecified (principal); I48.91 Unspecified atrial fibrillation; K21.9 Gastro-esophageal reflux disease without esophagitis; I11.0 Hypertensive heart disease with heart failure; I50.33 Acute on chronic diastolic (congestive) heart failure; J96.01 Acute respiratory failure with hypoxia; I95.9 Hypotension, unspecified; N17.9 Acute kidney failure, unspecified; I44.0 Atrioventricular block, first degree; I27.20 Pulmonary hypertension, unspecified; I08.1 Rheumatic disorders of both mitral and tricuspid valves; I25.10 Atherosclerotic heart disease of native coronary artery without angina pectoris; E03.9 Hypothyroidism, unspecified; K44.9 Diaphragmatic hernia without obstruction or gangrene; Z79.01 Long term (current) use of anticoagulants; Z79.899 Other long term (current) drug therapy; Z79.82 Long term (current) use of aspirin; Z79.890 Hormone replacement therapy; Z86.16 Personal history of COVID-19; Z90.49 Acquired absence of other specified parts of digestive tract; Z95.5 Presence of coronary angioplasty implant and graft; Z83.2 Family history of diseases of the blood and blood-forming organs and certain disorders involving the immune mechanism; Z83.3 Family history of diabetes mellitus; Z82.49 Family history of ischemic heart disease and other diseases of the circulatory system; Z86.711 Personal history of pulmonary embolism
CPT/HCPCS: 96376; 96361; 96374; 99285; 36415; 94640 ×3; 94760 ×2; 93005; 83880; 80053 ×3; 83735; 84484 ×2; 85025 ×3; 85610; 85730; 71045; 71046; G0378 ×3; J1940 ×2

== ENCOUNTER 2024-06-30 06:37 | Inpatient (IN) | payer MEDICARE ==
--- NOTE | 2024-06-30 07:30 | ED ---
Fall HPI - General Chief Complaint: Fall Stated Complaint: Fall Time Seen by Provider: 06/30/24 07:26 Source: patient, EMS Mode of arrival: EMS Limitations: no limitations - History of Present Illness Initial Comments: 89-year-old female presented to the ER via EMS with a chief complaint of a fall. Patient states she has intermittently been having abdominal discomfort and diarrhea for the past couple of months. She has followed up with Dr. Bautista and underwent endoscopy and colonoscopy. Patient states she was diagnosed with peptic ulcers and a hiatal hernia. Patient reports she will have constipation and take 2 Ducolax, last dose yesterday, to help her have a bowel movement and it causes her to have diarrhea. Patient states this morning around 4:30 AM she got out of bed to go to the bathroom and while returning to her bed with the assistance of a walker she collapsed. She denies head injury, loss of consciousness. She does take Eliquis due to history of atrial fibrillation. Patient states the walker fell on top of her. Patient is reporting pain to left ankle, right knee and left ribs. Patient denies any dizziness, lightheadedness, chest pain or shortness of breath prior to fall. Patient denies any recent fevers, cough, congestion. No other complaints - Related Data Home Medications Medication Instructions Recorded Confirmed Apixaban [Eliquis] 5 mg PO BID 03/07/22 01/29/23 Pantoprazole [Protonix] 40 mg PO DAILY 03/07/22 01/29/23 Ezetimibe [Zetia] 10 mg PO HS 09/28/22 01/29/23 Aspirin EC [Ecotrin Low Dose] 81 mg PO DAILY 01/18/23 01/29/23 Levothyroxine Sodium [Synthroid] 25 mcg PO DAILY 01/18/23 01/29/23 Nitroglycerin Sl Tabs [Nitrostat] 0.4 mg SUBLINGUAL Q5M PRN 01/18/23 01/29/23 Metoprolol Tartrate [Lopressor] 12.5 mg PO BID 01/29/23 01/29/23 Previous Rx's Medication Instructions Recorded Albuterol Inhaler [Ventolin Hfa 2 puff INHALATION RT-QID PRN each 01/31/23 Inhaler] Amiodarone [Cordarone] 200 mg PO BID tab 01/31/23 Midodrine [ProAmatine] 10 mg PO AC-TID tab 01/31/23 Potassium Chloride ER [K-Dur 10] 10 meq PO DAILY tab 01/31/23 Allergies Allergy/AdvReac Type Severity Reaction Status Date / Time [id number] Reductase AdvReac muscle Verified 01/29/23 14:41 Inhibitor weakness Review of Systems ROS Statement: Those systems with pertinent positive or pertinent negative responses have been documented in the HPI. ROS Other: All systems not noted in ROS Statement are negative. Past Medical History Past Medical History: Atrial Fibrillation, Hypertension Additional Past Medical History / Comment(s): Hypotension, COVID 04/11 History of Any Multi-Drug Resistant Organisms: None Reported Past Surgical History: Ablation, Cardiac Ablation, Cholecystectomy, Heart Catheterization With Stent, Orthopedic Surgery Additional Past Surgical History / Comment(s): Cardiac Ablation: Jul 2021 Past Anesthesia/Blood Transfusion Reactions: No Reported Reaction Date of Last Stent Placement:: 2013 Past Psychological History: No Psychological Hx Reported Smoking Status: Never smoker Past Alcohol Use History: None Reported Past Drug Use History: Marijuana - Past Family History Mother Family Medical History: Deep Vein Thrombosis (DVT), Pulmonary Embolus Additional Family Medical History / Comment(s): young at 52 with a "blood clot in the heart" Father Family Medical History: AFIB, Diabetes Mellitus Additional Family Medical History / Comment(s): Lived to be 93 General Exam Limitations: no limitations General appearance: alert, in no apparent distress Head exam: Present: atraumatic, normocephalic, normal inspection Eye exam: Present: normal appearance, PERRL, EOMI. Absent: scleral icterus, conjunctival injection, periorbital swelling Pupils: Present: normal accommodation ENT exam: Present: normal exam, normal oropharynx, mucous membranes moist Neck exam: Present: normal inspection. Absent: tenderness, meningismus, lymphadenopathy Respiratory exam: Present: normal lung sounds bilaterally, chest wall tenderness (Left anterior inferior ribs. Paradoxical chest wall motions. No overlying skin changes.). Absent: respiratory distress, wheezes, rales, rhonchi, stridor Cardiovascular Exam: Present: regular rate, normal rhythm, normal heart sounds. Absent: systolic murmur, diastolic murmur, rubs, gallop, clicks GI/Abdominal exam: Present: soft, tenderness (generalized), normal bowel sounds Extremities exam: Present: tenderness (Lateral malleolus. There is mild edema and contusion present extending into foot. 2+ bilateral dorsalis pedis pulses. Edema and ecchymosis to right medial knee. Patient has full range of motion.) Back exam: Present: normal inspection Neurological exam: Present: alert, oriented X3, CN II-XII intact Skin exam: Present: warm, dry, intact, normal color. Absent: rash Course Vital Signs 06/30/24 06:40 Temperature 98.4 F Pulse Rate 103 H Respiratory 16 Rate Blood Pressure 121/82 O2 Sat by Pulse 96 Oximetry - Reevaluation(s) Reevaluation #1: 06/30/24 09:18 Case discussed with sound physician, for admission. Medical Decision Making - Medical Decision Making Was pt. sent in by a medical professional or institution (, PA, [facility], urgent care, hospital, or jail...) When possible be specific @ -No Did you speak to anyone other than the patient for history (EMS, parent, family, police, friend...)? What history was obtained from this source @ -No Did you review nursing and triage notes (agree or disagree)? Why? @ -I reviewed and agree with nursing and triage notes Were old charts reviewed (outside hosp., previous admission, EMS record, old EKG, old radiological studies, urgent care reports/EKG's, jail records)? Report findings @ -No old charts were reviewed Differential Diagnosis (chest pain, altered mental status, abdominal pain women, abdominal pain men, vaginal bleeding, weakness, fever, dyspnea, syncope, headache, dizziness, GI bleed, back pain, seizure, CVA, palpatations, mental health, musculoskeletal)? @ -Fracture, dislocation, contusion, hematoma, intracranial hemorrhage, concussion, abrasion, laceration this list does not like to be all-inclusive EKG interpreted by me (3pts min.). @ -As above X-rays interpreted by me (1pt min.). @ -Left ankle x-ray interpreted me negative for acute osseous process. Left foot x-ray negative for acute osseous process. Left ribs AP chest x-ray negative for rib fractures or acute cardiopulmonary process. Bilateral knee x- rays negative for acute process. CT interpreted by me (1pt min.). @ -CT brain C-spine negative for acute intracranial process/cervical spine malalignment or fractures. CT abdomen pelvis concerning of mild diverticulitis. U/S interpreted by me (1pt. min.). @ -None done What testing was considered but not performed or refused? (CT, X-rays, U/S, labs)? Why? @ -None What meds were considered but not given or refused? Why? @ -None Did you discuss the management of the patient with other professionals (professionals i.e. Dr., PA, [employer], lab, RT, psych nurse, social work professor, travel cota, teacher, campus safety officer, counseling case manager)? Give summary @ -Yes, case discussed with Sound physician, Dr. Harry for admission. Was smoking cessation discussed for >3mins.? @ -No Was critical care preformed (if so, how long)? @ -No Were there social determinants of health that impacted care today? How? (Homelessness, low income, unemployed, alcoholism, drug addiction, transportation, low edu. Level, literacy, decrease access to med. care, nursing home, rehab)? @ -No Was there de-escalation of care discussed even if they declined (Discuss DNR or withdrawal of care, Hospice)? DNR status @ -No What co-morbidities impacted this encounter? (DM, HTN, Smoking, COPD, CAD, Cancer, CVA, ARF, Chemo, Hep., AIDS, mental health diagnosis, sleep apnea, morbid obesity)? @ -Advanced age, history of atrial fibrillation on Eliquis, hypertension, kidney disease Was patient admitted / discharged? Hospital course, mention meds given and route, prescriptions, significant lab abnormalities, going to OR and other pertinent info. @ -Admitted. 89-year-old female presenting to the ER with a chief complaint of a fall. History and physical exam completed. Vitals upon arrival remarkable for temperature 98.4, heart rate 103, respiratory rate 16, blood pressure 121/82, oxygen saturation 96% on room air. Patient in no signs of acute distress nontoxic-appearing. ANO x 3. GCS 15. Exam remarkable for contusions to left foot and ankle and right knee. Bilateral upper and lower extremities neurovascular intact. There is also tenderness to left anterior chest wall. No paradoxical chest wall motions. No overlying skin changes. Lung sounds heard throughout. Due to patient's age, recent falls and on Eliquis CT brain/cspine will be obtained, patient is agreeable. Patient does not meet code coag criteria as she denies head injury, loss of consciousness. GCS of 15. No injury identified. Laboratory studies will also be obtained due to patient reporting recent diarrhea. Laboratory studies remarkable for leukocytosis of 12.2 with a left shift. CKD with a BUN of 29, creatinine 1.15 with GFR of 43 this appears to be at patient's baseline. Lactic of 3.4. Viral swabs negative. CT brain C-spine negative. CT abdomen pelvis concerning diverticulitis for which patient will be started on Flagyl and Rocephin. Blood cultures obtained. X-rays obtained negative for acute osseous process. Patient met sepsis criteria at 0700. Antibiotics ordered at 0900. Patient received 1 L IV fluids in the ER and started on maintenance fluid at 130 cc/h. As patient is hemodynamically stable second liter bolus held due to patient's history of kidney disease and pleural effusions. Patient given p.o. Tylenol for pain control in the ER. Admission considered and discussed with Sound physician, Dr. Harry, for further evaluation and treatment of diverticulitis and weakness. Patient is agreeable for admission. Patient admitted stable condition. Case discussed with ED attending, Dr. Tompkins. Undiagnosed new problem with uncertain prognosis? @ -No Drug Therapy requiring intensive monitoring for toxicity (Heparin, Nitro, Insulin, Cardizem)? @ -No Were any procedures done? @ -No Diagnosis/symptom? @ -Sepsis/Diverticulitis Acute, or Chronic, or Acute on Chronic? @ -Acute Uncomplicated (without systemic symptoms) or Complicated (systemic symptoms)? @ -Complicated Side effects of treatment? @ -No Exacerbation, Progression, or Severe Exacerbation? @ -No Poses a threat to life or bodily function? How? (Chest pain, [place], [place], pneumonia, PE, COPD, DKA, ARF, appy, cholecystitis, CVA, Diverticulitis, Homicidal, Suicidal, threat to staff... and all critical care pts) @ -Yes, sepsis can lead to end organ dysfunction. - Lab Data Result diagrams: 06/30/24 06:50 06/30/24 06:50 Lab Results 06/30/24 06/30/24 06/30/24 Range/Units 06:50 06:50 06:50 WBC 12.2 H (3.8-10.6) k/uL RBC 4.70 (3.80-5.40) m/uL Hgb 12.6 (11.4-16.0) gm/dL Hct 39.7 (34.0-46.0) % MCV 84.5 (80.0-100.0) fL MCH 26.8 (25.0-35.0) pg MCHC 31.7 (31.0-37.0) g/dL RDW 16.5 H (11.5-15.5) % Plt Count 488 H (150-450) k/uL MPV 7.3 Neutrophils % 86 % Lymphocytes % 7 % Monocytes % 5 % Eosinophils % 1 % Basophils % 0 % Neutrophils # 10.5 H (1.3-7.7) k/uL Lymphocytes # 0.9 L (1.0-4.8) k/uL Monocytes # 0.6 (0-1.0) k/uL Eosinophils # 0.1 (0-0.7) k/uL Basophils # 0.0 (0-0.2) k/uL Anisocytosis Slight Sodium 136 L (137-145) mmol/L Potassium 4.4 (3.5-5.1) mmol/L Chloride 99 (98-107) mmol/L Carbon Dioxide 24 (22-30) mmol/L Anion Gap 13 mmol/L BUN 29 H (7-17) mg/dL Creatinine 1.15 H (0.52-1.04) mg/dL Est GFR (CKD-EPI)AfAm 50 (>60 ml/min/1.73 sqM) Est GFR (CKD-EPI)NonAf 43 (>60 ml/min/1.73 sqM) Glucose 129 H (74-99) mg/dL Plasma Lactic Acid Ivan 3.4 H* (0.7-2.0) mmol/L Calcium 10.0 (8.4-10.2) mg/dL Magnesium 2.2 (1.6-2.3) mg/dL Total Bilirubin 0.8 (0.2-1.3) mg/dL AST 30 (14-36) U/L ALT 21 (4-34) U/L Alkaline Phosphatase 131 H (38-126) U/L Total Protein 7.4 (6.3-8.2) g/dL Albumin 4.5 (3.5-5.0) g/dL Amylase (30-110) U/L Lipase (23-300) U/L Influenza Type A (PCR) (Not Detectd) Influenza Type B (PCR) (Not Detectd) RSV (PCR) (Not Detectd) SARS-CoV-2 (PCR) (Not Detectd) 06/30/24 06/30/24 Range/Units 06:50 06:50 WBC (3.8-10.6) k/uL RBC (3.80-5.40) m/uL Hgb (11.4-16.0) gm/dL Hct (34.0-46.0) % MCV (80.0-100.0) fL MCH (25.0-35.0) pg MCHC (31.0-37.0) g/dL RDW (11.5-15.5) % Plt Count (150-450) k/uL MPV Neutrophils % % Lymphocytes % % Monocytes % % Eosinophils % % Basophils % % Neutrophils # (1.3-7.7) k/uL Lymphocytes # (1.0-4.8) k/uL Monocytes # (0-1.0) k/uL Eosinophils # (0-0.7) k/uL Basophils # (0-0.2) k/uL Anisocytosis Sodium (137-145) mmol/L Potassium (3.5-5.1) mmol/L Chloride (98-107) mmol/L Carbon Dioxide (22-30) mmol/L Anion Gap mmol/L BUN (7-17) mg/dL Creatinine (0.52-1.04) mg/dL Est GFR (CKD-EPI)AfAm (>60 ml/min/1.73 sqM) Est GFR (CKD-EPI)NonAf (>60 ml/min/1.73 sqM) Glucose (74-99) mg/dL Plasma Lactic Acid Ivan (0.7-2.0) mmol/L Calcium (8.4-10.2) mg/dL Magnesium (1.6-2.3) mg/dL Total Bilirubin (0.2-1.3) mg/dL AST (14-36) U/L ALT (4-34) U/L Alkaline Phosphatase (38-126) U/L Total Protein (6.3-8.2) g/dL Albumin (3.5-5.0) g/dL Amylase 52 (30-110) U/L Lipase 86 (23-300) U/L Influenza Type A (PCR) Not Detected (Not Detectd) Influenza Type B (PCR) Not Detected (Not Detectd) RSV (PCR) Not Detected (Not Detectd) SARS-CoV-2 (PCR) Not Detected (Not Detectd) - EKG Data -: EKG Interpreted by Me EKG Comments: EKG taken at 655 showing a sinus rhythm. No acute ST segment or T wave abnormalities. Ventricular rate 91, MN interval 167, QRS duration 98, QT/QTc 349/398 - Radiology Data Radiology results: report reviewed, image reviewed Disposition Clinical Impression: Sepsis, Diverticulitis, Fall Disposition: ADMITTED IP TO THIS HOSP Condition: Stable Referrals: None,Stated [REFERRING] - 1-2 days Time of Disposition: 09:19
[2024-06-30 07:49] LABS: Anisocytosis Slight; Basophils % (A) 0 %; Eosinophils # (A) 0.1 k/uL (0-0.7); Eosinophils % (A) 1 %; HCT 39.7 % (34.0-46.0); HGB 12.6 gm/dL (11.4-16.0); Lymphocytes # (A) 0.9 k/uL (1.0-4.8); Lymphocytes % (A) 7 %; MCH 26.8 pg (25.0-35.0); MCHC 31.7 g/dL (31.0-37.0); MCV 84.5 fL (80.0-100.0); Mean Platelet Volume 7.3; Monocytes # (A) 0.6 k/uL (0-1.0); Monocytes % (A) 5 %; Neutrophils # (A) 10.5 k/uL (1.3-7.7); Neutrophils % (A) 86 %; Platelet Count 488 k/uL (150-450); RDW 16.5 % (11.5-15.5); WBC 12.2 k/uL (3.8-10.6)
[2024-06-30 08:04] LABS: ALT 21 U/L (4-34); AST 30 U/L (14-36); African American GFR (CKD) 50 (>60 ml/min/1.73 sqM); Albumin 4.5 g/dL (3.5-5.0); Alkaline Phosphatase 131 U/L (38-126); Amylase 52 U/L (30-110); Anion Gap 13 mmol/L; Blood Urea Nitrogen 29 mg/dL (7-17); Carbon Dioxide 24 mmol/L (22-30); Chloride 99 mmol/L (98-107); Glucose 129 mg/dL (74-99); Lipase 86 U/L (23-300); Magnesium 2.2 mg/dL (1.6-2.3); Non-African American GFR(CKD) 43 (>60 ml/min/1.73 sqM); Potassium 4.4 mmol/L (3.5-5.1); Sodium 136 mmol/L (137-145); Total Bilirubin 0.8 mg/dL (0.2-1.3); Total Protein 7.4 g/dL (6.3-8.2)
--- NOTE | 2024-06-30 08:08 | CT ---
EXAMINATION TYPE: CT brain abdi wo con DATE OF EXAM: 06/30/2024 COMPARISON: CT brain dated 01/22/2023 CLINICAL INDICATION: Female, 89 years old with history of recent fall on thinners; PHH, fall, on bloo d thinners, no LOC TECHNIQUE: CT scan of the head and cervical spine are performed without contrast. CT DLP: 1333.[address] CTDI: mGy Automated exposure control for dose reduction was used. Findings: Head CT: Ventricles, basal cisterns and sulci over convexities are moderately enlarged consistent with moderat e generalized atrophy but appropriate for the patient's age. There is no mass effect or shift in midline structures. No abnormal density is seen throughout the brain parenchyma and there is no acute intra or extra-axia l hemorrhage. Posterior fossa including the brainstem, fourth ventricle and cerebellar pontine angles are grossly n ormal. The intraorbital contents appear normal and symmetric. Visualized paranasal sinuses are well aerated. CT cervical spine: Craniovertebral junction relationships and prevertebral soft tissues are normal. The cervical vertebral segments are normal in height and alignment and there is no fracture subluxati on. The disc spaces are well-maintained in height. There is mild hypertrophic spurring at the C5-6 level anteriorly. There is mild degenerative changes of the uncovertebral joints in the midcervical spine and of the fa cet joints in the mid cervical spine. . The bony cervical canal is widely patent and there is no bony encroachment of the neural foramina. The paraspinal soft tissues unremarkable. IMPRESSION: 1. Head CT: No acute bleed or mass effect. Stable senescent changes. 2. CT cervical spine: No acute trauma. Mild degenerative changes as described above. [facility], Workstation: [facility], 06/30/2024 8:05 AM
--- NOTE | 2024-06-30 08:13 | CT ---
EXAMINATION TYPE: CT abdomen pelvis wo con DATE OF EXAM: 06/30/2024 COMPARISON: None CLINICAL INDICATION: Female, 89 years old with history of abd pain/diarrhea; PHH, abdominal pain, gal sea and vomiting for a few months TECHNIQUE: CT scan of the abdomen and pelvis is performed without oral or IV contrast. CT DLP: 1333.[address] CTDI: mGy Automated exposure control for dose reduction was used. Findings: The lungs are clear. There is surgical absence of the gallbladder. There is no biliary ductal dilatation. There is no organomegaly of the liver, pancreas, or spleen. There is a well-circumscribed 2.8 cm left adrenal mass likely representing an adenoma. There is a small cyst in the dome of the liver. There are no renal calcifications or hydronephrosis. The caliber of the abdominal aorta is normal and there is no retroperitoneal adenopathy or hemorrhage . There is moderate diverticulosis of the descending and sigmoid colon. There is mild edema in the jacob colic fat and descending colon likely indicating mild acute diverticulitis. There is no free intraper itoneal air or fluid. There is no intra-abdominal abscess. There is no bowel obstruction. There is no pelvic mass, free fluid, abscess or adenopathy. The osseous structures and soft tissues are unremarkable. IMPRESSION: Mild diverticulitis of the descending colon but no abscess, free air, free fluid or bowel obstruction . [facility], Workstation: [facility], 06/30/2024 8:10 AM
--- NOTE | 2024-06-30 08:28 | XR ---
Right foot. HISTORY: Pain following trauma. COMPARISON: None TECHNIQUE: 3 views left foot were obtained. FINDINGS: There is moderate to marked osteopenia. There is no fracture, dislocation, interosseous, intra-articular soft tissue abnormality. IMPRESSION: Moderate to marked osteopenia. No acute trauma. [facility], Workstation: [facility], 06/30/2024 8:26 AM
--- NOTE | 2024-06-30 08:30 | XR ---
Left ankle. HISTORY: Pain following fall. COMPARISON: None. TECHNIQUE: 3 views left ankle were obtained. FINDINGS: There is no fracture, dislocation, intraosseous, intra-articular soft tissue abnormality. There is mo derate osteopenia. The ankle mortise is intact. IMPRESSION: Moderate osteopenia. No acute trauma. [facility] Workstation: [facility], 06/30/2024 8:27 AM
--- NOTE | 2024-06-30 08:33 | XR ---
Bilateral knees. HISTORY: Pain following fall. COMPARISON: None TECHNIQUE: 6 views are obtained including 3 of the right knee and 3 of the left knee. FINDINGS: Right knee: There is a partial right knee replacement involving the medial compartment. There is moderate osteope malinda. There is no fracture, dislocation or focal intraosseous abnormality. There is no prosthetic loos ening. There is no joint effusion. There is moderate arterial vascular calcification. Left knee: There is a partial left knee prosthesis involving the urinary compartment. There is no joint loosenin g. There is moderate osteopenia. There is no fracture, dislocation or focal intraosseous abnormality. Th ere is no joint effusion. In the medial soft tissues, there is an area of soft tissue swelling possibly indicating a soft tissu e hematoma. IMPRESSION: 1. Moderate osteopenia. 2. No acute fracture or dislocation. 3. Normal-appearing partial bilateral knee replacements without loosening. 4. Question hematoma in the medial soft tissues of the left knee. [facility], Workstation: [facility] 06/30/2024 8:31 AM
--- NOTE | 2024-06-30 08:35 | XR ---
Chest and left RIBS HISTORY: Pain following fall. COMPARISON: Chest dated 01/29/2023. TECHNIQUE: 5 views of the chest and left ribs were obtained. FINDINGS: The lungs are clear. There is no pleural effusion or pneumothorax. The heart and pulmonary vasculatur e are normal. The osseous structures are intact. There is no evidence of left rib fracture. IMPRESSION: 1. No acute cardiopulmonary disease. 2. No evidence of left rib fracture. [facility], Workstation: [facility], 06/30/2024 8:32 AM
[2024-06-30] MEDS ORDERED: cefTRIAXone IN SWFI 1,000 MG/10 ML SYRINGE IVP SCH (09:00)
[2024-06-30] MEDS ORDERED: NALOXONE 0.4 MG/ML 1 ML VIAL IV PRN (09:13)
[2024-06-30] MEDS: ACETAMINOPHEN TAB 500 MG TAB PO STA (09:31)
[2024-06-30] MEDS: SODIUM CHLORIDE 0.9% 1,000 ML IV STA ×2 (09:34)
--- NOTE | 2024-06-30 10:17 | P.HPIM ---
History of Present Illness H&P Date: 06/30/24 History of Presenting Illness: Patient is a pleasant 89-year-old female with a past medical history of CAD status post stenting, atrial fibrillation status post ablation on anticoagulation with Eliquis, chronic systolic heart failure with previous EF of 45%, hyperlipidemia, hypothyroidism, and GERD. She presented to the emergency department this morning status post mechanical fall. She reports she has been struggling between intermittent constipation and diarrhea over the past couple of months and follows with Dr. Bautista after diagnosis of peptic ulcers and hiatal hernia. Patient reports she was struggling with constipation but took 2 Dulcolax tablets yesterday resulting in multiple episodes of diarrhea. Patient reports she ambulates with walker at baseline and this morning went to the bathroom and on her way back to bed she reached for her walker and felt weak and her legs just gave out on her. Patient denies seeing any dizziness/lighthea dedness prior to fall and denies hitting her head or having any loss of consciousness stating hitting the left side of her ribs on the walker and twisting her right knee and left ankle. Patient reports she was unable to get up and when she called for her son he immediately came and was unable to assist her secondary to the pain she was having in her leg and abdomen. Patient reports she laid on the ground for approximately an hour prior to her son convincing her to allow him to call EMS for transport to the hospital. Patient denies any other complaints including any recent fevers, chills, diaphoresis, changes in vision or hearing, chest pain or palpitations, shortness of breath, cough or congestion, nausea or vomiting, changes in her difficulties with urinary function, hematochezia, melena, or experiencing any numbness/tingling/weakness/swelling in her extremities. Upon arrival to our facility, patient underwent evaluation in the emergency department. Vital signs upon arrival show blood pressure 121/82, heart rate 103, respiratory rate 16, temp 98.4 F, and SpO2 of 96% on room air. EKG was completed showing sinus mechanism with specific T wave abnormalities (unchanged from previous EKGs completed 01/31/23). CT head was negative for acute intracranial process showing no acute bleed or mass effect revealing stable senescent changes. CT cervical spine negative for acute process showing mild degenerative changes. X-ray left foot showing moderate to marked osteopenia negative for acute fracture. X-ray left ankle showing moderate osteopenia negative for acute fracture. X-ray bilateral knees showing moderate osteopenia but negative for acute fracture or dislocation revealing normal-appearing partial bilateral knee replacements without loosening of hardware, and questionable small hematoma in the medial soft tissues of the left knee. Chest x-ray negative for acute cardiopulmonary process. X-ray left ribs negative for acute fracture or dislocation. CT abdomen and pelvis without contrast showing moderate diverticulosis of the descending and sigmoid colon with acute diverticulitis of the descending colon without abscess or free air noted. Labs were completed and reviewed. CBC showing leukocytosis with WBC count of 12.2 and thrombocytosis with platelet count of 488. BMP showing slightly elevated renal function with BUN of 29, creatinine of 1.15, and GFR 43 with baseline creatinine of 1.3. Blood glucose 129. Initial lactic acid was 3.4. Magnesium 2.2. Liver profile showing elevated alkaline phosphatase of 131 otherwise normal findings. Amylase and lipase normal findings. Influenza A, influenza B, RSV, and COVID PCR negative. Patient was started on IV antibiotics with Rocephin and Flagyl and she was admitted under our services for acute diverticulitis. Consults placed to physical therapy secondary to patient's fall and inability to ambulate secondary to pain. If no improvement over the next 24 hours may consider consult to orthopedic surgery as well. Review of systems: Pertinent positives and negatives as discussed in HPI, a complete review of systems was performed and all other systems are negative. Physical exam: Vital signs reviewed and stable. General: Nontoxic, no distress and appears stated age. Derm: Skin warm and dry, normal coloration for ethnicity. No bruising noted to left upper quadrant or flank or obvious injuries to lower extremities upon physical examination. Head: Atraumatic, normocephalic and symmetric. Eyes: EOM's intact, no lid lag, and anicteric sclera Mouth: no lip lesions, mucus membranes moist Cardiovascular: regular rate and rhythm with normal S1S2, no murmur, positive posterior tibial pulses bilaterally, and cap refill < 2 seconds. Lungs: Respirations even, regular, and unlabored on room air. Lungs CTA bilaterally, no rhonchi, no rales, no wheezing, and no accessory muscle usage. Abdominal: soft, tenderness upon palpation to left upper quadrant/flank, no guarding, no appreciable organomegaly Ext: ROM intact. No gross muscle atrophy, no edema, no contractures Neuro: Speech clear, face symmetrical and CN II-XII grossly intact with no noted focal neuro deficits Psych: Alert and oriented to person, place, time, and situation. Appropriate and pleasant affect. Assessment and Plan of Care: Acute diverticulitis of descending colon Dehydration secondary to diarrhea resulting from above -Continue IV antibiotics with Rocephin 2 g every 24 hours and Flagyl 500 mg IVPB 3 times daily. -Symptomatic care and pain management with Tylenol 650 mg every 6 hours as needed for mild pain/fever, [place] 5-325 mg tablets every 6 hours as needed for moderate pain, and morphine 4 mg IVP every 4 hours as needed for severe pain. -Zofran 4 mg IVP every 8 hours as needed for nausea or vomiting. -Gentle IV fluid hydration with 0.9% normal saline at 100 cc/h. -Patient to follow-up outpatient with addiction professional, Dr. Bautista after discharge. Generalized weakness, secondary to dehydration Fall at home resulting in pain to right knee and left ankle and inability to ambulate -Imaging as above in HPI was reviewed and negative for acute process. -Consult placed to PT/OT for evaluation as patient reports weakness and inability to ambulate secondary to pain from fall at home. If no improvement over the next 24 hours, may consider consult orthopedic surgery as well. CAD status post stenting Paroxysmal atrial fibrillation -Cardiac medication regimen with aspirin 81 mg daily, Eliquis 5 mg twice daily, and Zetia 10 mg nightly. -Telemetry monitoring Chronic systolic heart failure, not in acute exacerbation -Hold torsemide at this time and continue with gentle IV fluid hydration with 0.9% normal saline at 100 cc/h. for the next 24 hours. If patient has improvement of diarrhea may resume torsemide 10 mg daily. Hyperlipidemia -Continue Zetia 10 mg nightly. Hypothyroidism -Continue levothyroxine 12.5 mg daily. Data and imaging reviewed: As stated above in HPI CODE STATUS: Full code DVT prophylaxis: Eliquis Anticipated discharge date: Pending clinical course Anticipated discharge place: Pending clinical course Patient was seen independently by Nurse Practitioner. This document was prepared using [employer] dictation software. Please allow for errors in oil bay technician while rare they do occur. Pradeep Godfrey NP rendered care for this patient independently, reviewed the findings and plan as documented in the note above and agree with plan. I did not physically speak with or examine the patient on this date. Past Medical History Past Medical History: Atrial Fibrillation, Hypertension Additional Past Medical History / Comment(s): Hypotension, COVID 04/11 History of Any Multi-Drug Resistant Organisms: None Reported Past Surgical History: Ablation, Cardiac Ablation, Cholecystectomy, Heart Catheterization With Stent, Orthopedic Surgery Additional Past Surgical History / Comment(s): Cardiac Ablation: Jul 2021 Past Anesthesia/Blood Transfusion Reactions: No Reported Reaction Date of Last Stent Placement:: 2013 Past Psychological History: No Psychological Hx Reported Smoking Status: Never smoker Past Alcohol Use History: None Reported Past Drug Use History: Marijuana - Past Family History Mother Family Medical History: Deep Vein Thrombosis (DVT), Pulmonary Embolus Additional Family Medical History / Comment(s): young at 52 with a "blood c lot in the heart" Father Family Medical History: AFIB, Diabetes Mellitus Additional Family Medical History / Comment(s): Lived to be Medications and Allergies Home Medications Medication Instructions Recorded Confirmed Type Apixaban [Eliquis] 5 mg PO BID 03/07/22 06/30/24 History Ezetimibe [Zetia] 10 mg PO HS 09/28/22 06/30/24 History Aspirin EC [Ecotrin Low Dose] 81 mg PO DAILY 01/18/23 06/30/24 History Levothyroxine Sodium [Synthroid] 12.5 mcg PO DAILY 01/18/23 06/30/24 History Nitroglycerin Sl Tabs [Nitrostat] 0.4 mg SUBLINGUAL Q5M PRN 01/18/23 06/30/24 History Pantoprazole Sodium [Protonix] 20 mg PO BID 06/30/24 06/30/24 History Potassium Chloride ER [K-Dur 10] 10 meq PO BID 06/30/24 06/30/24 History Torsemide [Demadex] 10 mg PO DAILY 06/30/24 06/30/24 History Allergies Allergy/AdvReac Type Severity Reaction Status Date / Time [id number] Reductase AdvReac muscle Verified 06/30/24 10:09 Inhibitor weakness Physical Exam Vitals: Vital Signs Temp Pulse Resp BP Pulse Ox 06/30/24 06:40 98.4 F 103 H 16 121/82 96 Intake and Output 06/29/24 06/30/24 06/30/24 22:59 06:59 14:59 Other: Weight 81.647 kg Results CBC & Chem 7: 06/30/24 06:50 06/30/24 06:50 Labs: Abnormal Lab Results - Last 24 Hours (Table) 06/30/24 06/30/24 06/30/24 Range/Units 06:50 06:50 06:50 WBC 12.2 H (3.8-10.6) k/uL RDW 16.5 H (11.5-15.5) % Plt Count 488 H (150-450) k/uL Neutrophils # 10.5 H (1.3-7.7) k/uL Lymphocytes # 0.9 L (1.0-4.8) k/uL Sodium 136 L (137-145) mmol/L BUN 29 H (7-17) mg/dL Creatinine 1.15 H (0.52-1.04) mg/dL Glucose 129 H (74-99) mg/dL Plasma Lactic Acid Ivan 3.4 H* (0.7-2.0) mmol/L Alkaline Phosphatase 131 H (38-126) U/L
[2024-06-30] MEDS ORDERED: NITROGLYCERIN SL TABS 0.4 MG TAB SUBLINGUAL PRN (10:20)
[2024-06-30] MEDS: MORPHINE SULFATE 4 MG/ML SYRINGE IV PRN (10:28)
[2024-06-30] MEDS: metroNIDAZOLE-NS PMX 500 MG in SALINE 1 100ML.BAG IVPB SCH ×2 (10:31→10:36)
[2024-06-30] MEDS: ASPIRIN 81 MG PO SCH (10:36)
[2024-06-30] MEDS: LEVOTHYROXINE 25 MCG TAB PO SCH (10:44)
[2024-06-30] MEDS: APIXABAN 5 MG TAB PO SCH (10:45)
[2024-06-30] MEDS: HYDROcodone/APAP 5-325MG 1 EACH TAB PO PRN (12:45)
[2024-06-30] MEDS: ONDANSETRON 4 MG/2 ML VIAL IVP PRN (13:42)
[2024-06-30] MEDS: SODIUM CHLORIDE 0.9% 1,000 ML IV ONE (15:53)
[2024-06-30] MEDS: PANTOPRAZOLE 40 MG/10 ML VIAL IVP SCH (15:55)
[2024-06-30 18:48] LABS: Anisocytosis Slight; HCT 31.1 % (34.0-46.0); HGB 10.1 gm/dL (11.4-16.0); Hypochromasia Slight; MCH 27.6 pg (25.0-35.0); MCHC 32.5 g/dL (31.0-37.0); MCV 84.8 fL (80.0-100.0); Mean Platelet Volume 6.7; Platelet Count 356 k/uL (150-450); RBC 3.67 m/uL (3.80-5.40); RDW 16.6 % (11.5-15.5); WBC 7.5 k/uL (3.8-10.6)
[2024-06-30 18:59] LABS: ALT 43 U/L (4-34); AST 79 U/L (14-36); African American GFR (CKD) 67 (>60 ml/min/1.73 sqM); Albumin 3.2 g/dL (3.5-5.0); Albumin/Globulin Ratio 1.2; Alkaline Phosphatase 114 U/L (38-126); Anion Gap 7 mmol/L; Blood Urea Nitrogen 19 mg/dL (7-17); Calcium 8.4 mg/dL (8.4-10.2); Carbon Dioxide 24 mmol/L (22-30); Chloride 104 mmol/L (98-107); Globulin 2.6 g/dL; Glucose 90 mg/dL (74-99); Non-African American GFR(CKD) 59 (>60 ml/min/1.73 sqM); Potassium 3.5 mmol/L (3.5-5.1); Sodium 135 mmol/L (137-145); Total Bilirubin 0.8 mg/dL (0.2-1.3); Total Protein 5.8 g/dL (6.3-8.2)
[2024-06-30] MEDS: EZETIMIBE 10 MG TAB PO SCH (20:26)
[2024-07-01 08:50] LABS: Anisocytosis Slight; HGB 10.4 gm/dL (11.4-16.0); Hypochromasia Moderate; MCH 27.1 pg (25.0-35.0); MCHC 31.4 g/dL (31.0-37.0); MCV 86.2 fL (80.0-100.0); Mean Platelet Volume 6.5; Platelet Count 338 k/uL (150-450); RBC 3.83 m/uL (3.80-5.40); RDW 16.6 % (11.5-15.5); WBC 6.3 k/uL (3.8-10.6)
[2024-07-01 09:03] LABS: ALT 48 U/L (4-34); AST 61 U/L (14-36); African American GFR (CKD) 77 (>60 ml/min/1.73 sqM); Albumin 3.4 g/dL (3.5-5.0); Albumin/Globulin Ratio 1.4; Alkaline Phosphatase 118 U/L (38-126); Anion Gap 10 mmol/L; Blood Urea Nitrogen 11 mg/dL (7-17); Calcium 8.7 mg/dL (8.4-10.2); Carbon Dioxide 22 mmol/L (22-30); Chloride 104 mmol/L (98-107); Globulin 2.5 g/dL; Glucose 127 mg/dL (74-99); Magnesium 1.9 mg/dL (1.6-2.3); Non-African American GFR(CKD) 67 (>60 ml/min/1.73 sqM); Potassium 3.3 mmol/L (3.5-5.1); Sodium 136 mmol/L (137-145); Total Protein 5.9 g/dL (6.3-8.2)
--- NOTE | 2024-07-01 11:13 | P.PN ---
Subjective Progress Note Date: 07/01/24 Hospital course: Patient is a pleasant 89-year-old female with a past medical history of CAD status post stenting, atrial fibrillation status post ablation on anti coagulation with Eliquis, chronic systolic heart failure with previous EF of 45%, hyperlipidemia, hypothyroidism, and GERD. She presented to the emergency department this morning status post mechanical fall resulting in pain to LUQ/flank, right knee pain and left ankle pain. Upon arrival to our facility, patient underwent evaluation in the emergency department. Vital signs upon arrival show blood pressure 121/82, heart rate 103, respiratory rate 16, temp 98.4 F, and SpO2 of 96% on room air. EKG was completed showing sinus mechanism with specific T wave abnormalities (unchanged from previous EKGs completed 01/31/23). Labs were completed and reviewed. CBC showing leukocytosis with WBC count of 12.2 and thrombocytosis with platelet count of 488. BMP showing slightly elevated renal function with BUN of 29, creatinine of 1.15, and GFR 43 with baseline creatinine of 1.3. Blood glucose 129. Initial lactic acid was 3.4. Magnesium 2.2. Liver profile showing elevated alkaline phosphatase of 131 otherwise normal findings. Amylase and lipase normal findings. Influenza A, influenza B, RSV, and COVID PCR negative. Multiple diagnostic tests were completed. No acute fractures or obvious injures noted. However pt was found to have moderate diverticulosis of the sigmoid colon with acute diverticulitis of the descending colon without abscess or free air. Patient was started on IV a ntibiotics with Rocephin and Flagyl and she was admitted under our services for acute diverticulitis. Consults placed to physical therapy secondary to patient's fall and inability to ambulate secondary to pain. PT/OT evaluated, patient remains unable to bear any weight on right lower extremity. Consult placed to orthopedic surgery for evaluation. Patient also with persistent reports of abdominal/left flank discomfort. General surgery consulted for recommendations. Diagnostic Imaging: -CT head was negative for acute intracranial process showing no acute bleed or mass effect revealing stable senescent changes. -CT cervical spine negative for acute process showing mild degenerative changes. -X-ray left foot showing moderate to marked osteopenia negative for acute fracture. -X-ray left ankle showing moderate osteopenia negative for acute fracture. -X-ray bilateral knees showing moderate osteopenia but negative for acute fracture or dislocation revealing normal-appearing partial bilateral knee replacements without loosening of hardware, and questionable small hematoma in the medial soft tissues of the left knee. -Chest x-ray negative for acute cardiopulmonary process. -X-ray left ribs negative for acute fracture or dislocation. -CT abdomen and pelvis without contrast showing moderate diverticulosis of the descending and sigmoid colon with acute diverticulitis of the descending colon without abscess or free air noted. Physical exam: Painful evaluated at bedside. She continues to report significant uncontrolled pain to left flank region and abdominal tenderness upon palpation. Patient reports she is unable to get comfortable. Patient again informed that she needs to ask the nurse for medication for her pain as she is having pain and she verbalized understanding. She denies any further episodes of vomiting since yesterday evening, in the emergency department does admit to nausea and occasional dry heaves. Reports diarrhea has improved. Vital signs reviewed and stable. General: Nontoxic, no distress and appears stated age. Derm: Skin warm and dry, normal coloration for ethnicity. No bruising noted to left upper quadrant or flank or obvious injuries to lower extremities upon physical examination. Head: Atraumatic, normocephalic and symmetric. Eyes: EOM's intact, no lid lag, and anicteric sclera Mouth: no lip lesions, mucus membranes moist Cardiovascular: regular rate and rhythm with normal S1S2, no murmur, positive posterior tibial pulses bilaterally, and cap refill < 2 seconds. Lungs: Respirations even, regular, and unlabored on room air. Lungs CTA bilaterally, no rhonchi, no rales, no wheezing, and no accessory muscle usage. Abdominal: soft, tenderness upon palpation to left upper quadrant/flank, no guarding, no appreciable organomegaly Ext: ROM intact. No gross muscle atrophy, no edema, no contractures Neuro: Speech clear, face symmetrical and CN II-XII grossly intact with no noted focal neuro deficits Psych: Alert and oriented to person, place, time, and situation. Appropriate and pleasant affect. Assessment and Plan of Care: Acute diverticulitis of descending colon Dehydration secondary to diarrhea resulting from above Lactic acidosis, resolved after IV fluid hydration -Continue IV antibiotics with Rocephin 2 g every 24 hours and Flagyl 500 mg IVPB 3 times daily. -Symptomatic care and pain management with Tylenol 650 mg every 6 hours as needed for mild pain/fever, [place] 5-325 mg tablets every 6 hours as needed for moderate pain, and morphine 4 mg IVP every 4 hours as needed for severe pain. -Zofran 4 mg IVP every 8 hours as needed for nausea or vomiting. -Gentle IV fluid hydration with 0.9% normal saline at 100 cc/h. -Secondary to persistent pain and tenderness, will place consult for general surgery to evaluate. Generalized weakness, secondary to dehydration Fall at home resulting in pain to right knee and left ankle and inability to ambulate -Imaging as above in HPI was reviewed and negative for acute process. -PT/OT evaluated, patient remains unable to bear weight on right lower extremity secondary to reports of severe pain in right knee and right groin. Consult placed to orthopedic surgery for evaluation. CAD status post stenting Paroxysmal atrial fibrillation -Cardiac medication regimen with aspirin 81 mg daily, Eliquis 5 mg twice daily, and Zetia 10 mg nightly. -Telemetry monitoring Chronic systolic heart failure, not in acute exacerbation -Hold torsemide at this time and continue with gentle IV fluid hydration with 0.9% normal saline at 100 cc/h. for the next 24 hours. If patient continues to have improvement of diarrhea over the next 24 hours may discontinue IV fluids and resume torsemide 10 mg daily. Hyperlipidemia -Continue Zetia 10 mg nightly. Hypothyroidism -Continue levothyroxine 12.5 mg daily. Data and imaging reviewed: Morning labs reviewed. CBC showing stable normocytic anemia with hemoglobin of 10.4. BMP showing hypokalemia with potassium of 3.3 otherwise normal findings. Blood glucose 127. Magnesium 1.9. Liver profile showing elevated but stable AST of 61, ALT of 48, and normal alkaline phosphatase of 118. Albumin was low at 3.4. Vital signs reviewed and stable. Blood pressure 109/59, heart rate 90, respiratory rate 18, temp 98.3 F, and SpO2 of 97% on room air. Discussed above plan with general surgeon, Dr. Burkett, manager fine, and PT/OT CODE STATUS: Full code DVT prophylaxis: Eliquis Anticipated discharge date: Pending clinical course Anticipated discharge place: Pending clinical course Patient was seen independently by Nurse Practitioner. This document was prepared using [employer] dictation software. Please allow for errors in order builder loader while rare they do occur. Pradeep Godfrey NP rendered care for this patient independently, reviewed the findings and plan as documented in the note above and agree with plan. I did not physically speak with or examine the patient on this date. Objective - Vital Signs Vital signs: Vital Signs Temp 97.5 F L 07/01/24 07:29 Pulse 82 07/01/24 07:29 Resp 18 07/01/24 07:29 BP 111/54 07/01/24 07:29 Pulse Ox 97 07/01/24 07:29 FiO2 - Labs CBC & Chem 7: 07/01/24 08:26 07/01/24 08:26 Labs: Abnormal Lab Results - Last 24 Hours (Table) 06/30/24 06/30/24 06/30/24 Range/Units 11:34 14:34 18:12 RBC (3.80-5.40) m/uL Hgb (11.4-16.0) gm/dL Hct (34.0-46.0) % RDW (11.5-15.5) % Sodium (137-145) mmol/L BUN (7-17) mg/dL Plasma Lactic Acid Ivan 2.4 H* 4.9 H* 2.1 H* (0.7-2.0) mmol/L AST (14-36) U/L ALT (4-34) U/L Total Protein (6.3-8.2) g/dL Albumin (3.5-5.0) g/dL 06/30/24 06/30/24 06/30/24 Range/Units 18:12 18:12 21:18 RBC 3.67 L (3.80-5.40) m/uL Hgb 10.1 L (11.4-16.0) gm/dL Hct 31.1 L (34.0-46.0) % RDW 16.6 H (11.5-15.5) % Sodium 135 L (137-145) mmol/L BUN 19 H (7-17) mg/dL Plasma Lactic Acid Ivan 2.4 H* (0.7-2.0) mmol/L AST 79 H (14-36) U/L ALT 43 H (4-34) U/L Total Protein 5.8 L (6.3-8.2) g/dL Albumin 3.2 L (3.5-5.0) g/dL
[2024-07-01] MEDS: ARTIFICIAL TEARS-HYPROMELLOSE DROPS 15 ML BTL RIGHT EYE PRN (11:20)
[2024-07-01] MEDS: POTASSIUM CHLORIDE ER 20 MEQ TAB.ER PO STA (11:22)
--- NOTE | 2024-07-01 13:56 | P.GSCN ---
History of Present Illness Consult date: 07/01/24 History of present illness: CHIEF COMPLAINT: Fall HISTORY OF PRESENT ILLNESS: This is a 89-year-old female who initially presented to the hospital with complaints of fall with left upper quadrant flank pain, right knee pain and left ankle pain. She is being followed by orthopedic service. She reports prior to the fall she also had been having abdominal pain for about 6 weeks. She reports pain on the right side of the abdomen across the lower abdomen and more tender in the right lower quadrant of the left lower quadrant. She has been nauseous. She does report a prior history of a hiatal hernia and peptic ulcer disease. Her last EGD was in February 2022 with a normal- appearing esophagus and mild gastritis with small hiatal hernia. Patient does report that she has had EGDs in the past where she required dilation. She reports her last colonoscopy was about a year ago and reports it as normal. She has had polyps in the past. Denies any prior history of diverticulitis. She is on Eliquis for A-fib. She had a CT scan of the abdomen pelvis that had reported mild diverticulitis in the descending colon. PAST MEDICAL HISTORY: Atrial fibrillation, hypertension, coronary disease cardiac stent, CHF, history of PE in 2011, peptic ulcer disease, hiatal hernia PAST SURGICAL HISTORY: Cardiac ablation, cholecystectomy, heart catheterization with stents, mitral valve clip in April 2023 MEDICATIONS: See below ALLERGIES: See below SOCIAL HISTORY: No illicit drug use. REVIEW OF SYSTEMS: CONSTITUTIONAL: Denies fever or chills. HEENT: Denies blurred vision, vision changes, or eye pain. Denies hemoptysis CARDIOVASCULAR: Denies chest pain or pressure. RESPIRATORY: No shortness of breath. GASTROINTESTINAL: See HPI for pertinent findings HEMATOLOGIC: Denies bleeding disorders. GENITOURINARY: Denies any blood in urine or increased urinary frequency. SKIN: Denies pruitis. Denies rash. PHYSICAL EXAM: VITAL SIGNS: Reviewed GENERAL: Well-developed in no acute distress. ABDOMEN: Soft. Nondistended. Tenderness with palpation right side of the abdomen into the right lower quadrant, suprapubic area mild discomfort left lower quadrant. Tenderness with palpation of the left upper quadrant. No ecchymosis noted. NEUROLOGIC: Alert and oriented. Cranial nerves II through XII grossly intact. LABORATORY DATA: WBC 6.3 Hgb 10.4 platelets 338 Sodium is 136 potassium 3.3 creatinine 0.80 Lactic acid 2.4 down to 2.0 total bilirubin 1.0 AST 61 ALT 48 lipase 86 Influenza RSV and COVID not detected IMAGING: CT scan abdomen pelvis reports mild diverticulitis of the descending colon no abscess, free air, free fluid or bowel obstruction Rib x-ray no acute cardiopulmonary disease no left rib fracture ASSESSMENT: 1. Mild diverticulitis of the descending colon 2. Abdominal pain 3. Fall PLAN: -Continue antibiotics for the mild diverticulitis -Continue to monitor -Continue clear liquid diet today -Right knee pain being evaluated by orthopedics Physician Rubber Worker note has been reviewed by physician. Signing provider agrees with the documented findings, assessment, and plan of care. Past Medical History Past Medical History: Atrial Fibrillation, Hypertension Additional Past Medical History / Comment(s): Hypotension, COVID 04/11 History of Any Multi-Drug Resistant Organisms: None Reported Past Surgical History: Ablation, Cardiac Ablation, Cholecystectomy, Heart Catheterization With Stent, Orthopedic Surgery Additional Past Surgical History / Comment(s): Cardiac Ablation: Jul 2021 Past Anesthesia/Blood Transfusion Reactions: No Reported Reaction Date of Last Stent Placement:: 2013 Past Psychological History: No Psychological Hx Reported Smoking Status: Never smoker Past Alcohol Use History: None Reported Past Drug Use History: Marijuana - Past Family History Mother Family Medical History: Deep Vein Thrombosis (DVT), Pulmonary Embolus Additional Family Medical History / Comment(s): young at 52 with a "blood clot in the heart" Father Family Medical History: AFIB, Diabetes Mellitus Additional Family Medical History / Comment(s): Lived to be Medications and Allergies Home Medications Medication Instructions Recorded Confirmed Type Apixaban [Eliquis] 5 mg PO BID 03/07/22 06/30/24 History Ezetimibe [Zetia] 10 mg PO HS 09/28/22 06/30/24 History Aspirin EC [Ecotrin Low Dose] 81 mg PO DAILY 01/18/23 06/30/24 History Levothyroxine Sodium [Synthroid] 12.5 mcg PO DAILY 01/18/23 06/30/24 History Nitroglycerin Sl Tabs [Nitrostat] 0.4 mg SUBLINGUAL Q5M PRN 01/18/23 06/30/24 History Pantoprazole Sodium [Protonix] 20 mg PO BID 06/30/24 06/30/24 History Potassium Chloride ER [K-Dur 10] 10 meq PO BID 06/30/24 06/30/24 History Torsemide [Demadex] 10 mg PO DAILY 06/30/24 06/30/24 History Allergies Allergy/AdvReac Type Severity Reaction Status Date / Time [id number] Reductase AdvReac muscle Verified 06/30/24 10:09 Inhibitor weakness Surgical - Exam Vital Signs Temp Pulse Resp BP Pulse Ox 98.4 F 103 H 16 121/82 96 06/30/24 06:40 06/30/24 06:40 06/30/24 06:40 06/30/24 06:40 06/30/24 06:40 Results - Labs 07/01/24 08:26 07/01/24 08:26 Abnormal Lab Results - Last 24 Hours (Table) 06/30/24 06/30/24 06/30/24 Range/Units 11:34 14:34 18:12 RBC (3.80-5.40) m/uL Hgb (11.4-16.0) gm/dL Hct (34.0-46.0) % RDW (11.5-15.5) % Sodium (137-145) mmol/L Potassium (3.5-5.1) mmol/L BUN (7-17) mg/dL Glucose (74-99) mg/dL Plasma Lactic Acid Ivan 2.4 H* 4.9 H* 2.1 H* (0.7-2.0) mmol/L AST (14-36) U/L ALT (4-34) U/L Total Protein (6.3-8.2) g/dL Albumin (3.5-5.0) g/dL 06/30/24 06/30/24 06/30/24 Range/Units 18:12 18:12 21:18 RBC 3.67 L (3.80-5.40) m/uL Hgb 10.1 L (11.4-16.0) gm/dL Hct 31.1 L (34.0-46.0) % RDW 16.6 H (11.5-15.5) % Sodium 135 L (137-145) mmol/L Potassium (3.5-5.1) mmol/L BUN 19 H (7-17) mg/dL Glucose (74-99) mg/dL Plasma Lactic Acid Ivan 2.4 H* (0.7-2.0) mmol/L AST 79 H (14-36) U/L ALT 43 H (4-34) U/L Total Protein 5.8 L (6.3-8.2) g/dL Albumin 3.2 L (3.5-5.0) g/dL 07/01/24 07/01/24 Range/Units 08:26 08:26 RBC (3.80-5.40) m/uL Hgb 10.4 L (11.4-16.0) gm/dL Hct 33.0 L (34.0-46.0) % RDW 16.6 H (11.5-15.5) % Sodium 136 L (137-145) mmol/L Potassium 3.3 L (3.5-5.1) mmol/L BUN (7-17) mg/dL Glucose 127 H (74-99) mg/dL Plasma Lactic Acid Ivan (0.7-2.0) mmol/L AST 61 H (14-36) U/L ALT 48 H (4-34) U/L Total Protein 5.9 L (6.3-8.2) g/dL Albumin 3.4 L (3.5-5.0) g/dL Diabetes panel 06/30/24 07/01/24 Range/Units 18:12 08:26 Sodium 135 L 136 L (137-145) mmol/L Potassium 3.5 3.3 L (3.5-5.1) mmol/L Chloride 104 104 (98-107) mmol/L Carbon Dioxide 24 22 (22-30) mmol/L BUN 19 H 11 (7-17) mg/dL Creatinine 0.89 0.80 (0.52-1.04) mg/dL Glucose 90 127 H (74-99) mg/dL Calcium 8.4 8.7 (8.4-10.2) mg/dL AST 79 H 61 H (14-36) U/L ALT 43 H 48 H (4-34) U/L Alkaline Phosphatase 114 118 (38-126) U/L Total Protein 5.8 L 5.9 L (6.3-8.2) g/dL Albumin 3.2 L 3.4 L (3.5-5.0) g/dL Calcium panel 06/30/24 07/01/24 Range/Units 18:12 08:26 Calcium 8.4 8.7 (8.4-10.2) mg/dL Albumin 3.2 L 3.4 L (3.5-5.0) g/dL Pituitary panel 06/30/24 07/01/24 Range/Units 18:12 08:26 Sodium 135 L 136 L (137-145) mmol/L Potassium 3.5 3.3 L (3.5-5.1) mmol/L Chloride 104 104 (98-107) mmol/L Carbon Dioxide 24 22 (22-30) mmol/L BUN 19 H 11 (7-17) mg/dL Creatinine 0.89 0.80 (0.52-1.04) mg/dL Glucose 90 127 H (74-99) mg/dL Calcium 8.4 8.7 (8.4-10.2) mg/dL Adrenal panel 06/30/24 07/01/24 Range/Units 18:12 08:26 Sodium 135 L 136 L (137-145) mmol/L Potassium 3.5 3.3 L (3.5-5.1) mmol/L Chloride 104 104 (98-107) mmol/L Carbon Dioxide 24 22 (22-30) mmol/L BUN 19 H 11 (7-17) mg/dL Creatinine 0.89 0.80 (0.52-1.04) mg/dL Glucose 90 127 H (74-99) mg/dL Calcium 8.4 8.7 (8.4-10.2) mg/dL Total Bilirubin 0.8 1.0 (0.2-1.3) mg/dL AST 79 H 61 H (14-36) U/L ALT 43 H 48 H (4-34) U/L Alkaline Phosphatase 114 118 (38-126) U/L Total Protein 5.8 L 5.9 L (6.3-8.2) g/dL Albumin 3.2 L 3.4 L (3.5-5.0) g/dL
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
[2024-07-02 08:34] LABS: HCT 30.6 % (37.2-46.3); HGB 9.5 g/dL (12.0-15.0); MCH 27.4 pg (27.0-32.0); MCV 88.2 FL (80.0-97.0); Mean Platelet Volume 9.1 FL (9.5-12.2); NRBC Per 100 WBC 0 X 10*3/uL (0.00-0.01); Platelet Count 307 X 10*3/uL (140-440); RBC 3.47 X 10*6/uL (4.10-5.20); RDW 18.3 % (11.5-14.5); WBC 5.97 X 10*3/uL (4.50-10.00)
[2024-07-02 09:09] LABS: ALT 43 U/L (8-44); AST 36 U/L (13-35); Albumin 3.4 g/dL (3.8-4.9); Albumin/Globulin Ratio 1.89 Ratio (1.60-3.17); Alkaline Phosphatase 125 U/L (41-126); BUN/Creat Ratio 8.88 Ratio (12.00-20.00); Blood Urea Nitrogen 7.1 mg/dL (9.0-27.0); Carbon Dioxide 24.6 mmol/L (21.6-31.8); Chloride 106 mmol/L (96-109); Globulin 1.8 g/dL (1.6-3.3); Glucose 94 mg/dL (70-110); Magnesium 2.1 mg/dL (1.5-2.4); Potassium 4.6 mmol/L (3.5-5.5); Sodium 139 mmol/L (135-145); Total Bilirubin 0.5 mg/dL (0.3-1.2); Total Protein 5.2 g/dL (6.2-8.2)
--- NOTE | 2024-07-02 10:27 | CT ---
EXAMINATION TYPE: CT knee RT wo con CT DLP: 550.2 mGycm, Automated exposure control for dose reduction was used. DATE OF EXAM: 07/02/2024 10:19 AM COMPARISON: Bilateral knee radiographs 06/30/2024 CLINICAL INDICATION:Female, 89 years old with history of right knee pain status post fall; PHH, RIGHT KNEE PAIN TECHNIQUE: Axial images were obtained of the right knee without the use of IV contrast. Additional c oronal and sagittal reformatted images and soft tissue and bone window were obtained for review. 3-D reconstruction was created on a separate workstation. FINDINGS: Diffuse bone demineralization. Postsurgical changes from unicompartmental medial tibiofemor al arthroplasty. Hardware appears intact with appropriate alignment. No periprosthetic lucency identi fied. This creates streak artifact which limits evaluation. There is joint space narrowing with zayra nal osteophytosis of the patellofemoral and lateral tibiofemoral joints. No acute fracture or disloca tion. Trace joint effusion. No significant soft tissue swelling or joint effusion. Atherosclerotic ca lcification of the visualized arterial vasculature. IMPRESSION: 1. No acute fracture or dislocation. 2. Postsurgical changes from unicompartmental medial tibiofemoral arthroplasty. Hardware is intact w ith appropriate alignment. No surrounding lucency to suggest loosening. Creates streak artifact which limits evaluation. 3. Moderate osteoarthritic changes [facility], , 07/02/2024 10:25 AM
--- NOTE | 2024-07-02 11:11 | CDI ---
Documentation Clarification Form Date: 07/02/2024 11:08:24 AM From: Shraddha Anders RN, CCD Phone: [phone] Admit Date: 06/30/2024 10:35:00 AM Patient Name: Sydni Kemp Visit Number: [id number] Discharge Date: ATTENTION: The Clinical Documentation Specialists (CDI) and [facility] Coding Staff appreciate your assistance in clarifying documentation. Please respond to the clarification below the line at the bottom and electronically sign. The CDI & [facility] Coding staff will review the response and follow-up if needed. Please note: Queries are made part of the Legal Health Record. If you have any questions, please contact the author of this message via ITS. Doctor/Provider: Sonny Harry Sepsis is documented in the ED clinical impression which may lack sufficient clinical evidence/support in the medical record. Additional clarification is requested. History/Risk Factors: Atrial Fibrillation, Hypertension, Hypotension, COVID 04/11 Clinical Indicators: 89-year-old female presented to the ER via EMS with a chief complaint of a fall and intermittently been having abdominal discomfort and diarrhea for the past couple of months. ED evaluation: leukocytosis WBC 12.2 with a left shift. CKD with a BUN 29, Creatine 1.15 with GFR of 43 at baseline. Lactic acid of 3.4, 2.4, 4.9, 2.1. Patient met sepsis criteria at 0700. Antibiotics ordered at 0900 06/30 (repeat) WBC 7/5 HGB 10.1 NA+ 135 BUN 10 CR 0.89 06/30 VS 121/82 103 16 98.4 98% RA, 127/64 85 20 95% RA 06/30 CT ABD/Pelvis: Mild diverticulitis of the descending colon but no abscess, free air, free fluid or bowel obstruction Treatment: Rocephin 2 GM IVPB Q 24 HRS Flagyl 500MG IVPB TID .9 NS 1,000 ML Bolus X 2 Please clarify if [insert diagnosis] is a valid diagnosis? [ x ] No, Sepsis is ruled out [ ] Yes, Sepsis diagnosis is present as evidence by (additional clinical support): [ ] Other (please specify diagnosis) [ ] Unable to determine (Template Last Revised: January 2024) MTDD
--- NOTE | 2024-07-02 15:30 | P.PN ---
Subjective Progress Note Date: 07/02/24 SURGICAL PROGRESS NOTE CHIEF COMPLAINT: Fall HISTORY OF PRESENT ILLNESS: Surgical service is following in regards to diverticulitis. Patient continues to complain of abdominal pain. Mostly in the left upper quadrant where she fell. She is having flatus. No bowel movement. She denies any nausea or vomiting. She does report having some belching this morning. She is interested in advancing her diet. She does complain of leg pain. Orthopedic service is following. Afebrile. WBC 5.97 Hgb 10.4 down to 9.5 PHYSICAL EXAM: VITAL SIGNS: Reviewed. GENERAL: Well-developed in no acute distress. ABDOMEN: Soft. Nondistended. Tender with palpation left upper quadrant. Patient also tender along the right side of the abdomen and across the lower abdomen. Does appear less tender than yesterday. NEUROLOGIC: Alert and oriented. Cranial nerves II through XII grossly intact. ASSESSMENT: 1. Mild diverticulitis of the descending colon 2. Abdominal pain 3. Fall PLAN: -Advance diet to full liquids -Continue antibiotics for diverticulitis Physician Customer Service Technician note has been reviewed by physician. Signing provider agrees with the documented findings, assessment, and plan of care. Attestation Patient seen and examined at bedside. States abdominal pain is improving. Not having any bowel movements yet but having flatus. We will advance diet to full liquid diet. Continue IV antibiotics. Further recommendations based on patient's clinical progress. Anaya Amor DO Objective - Vital Signs Vital signs: Vital Signs Temp 97.8 F 07/02/24 13:33 Pulse 82 07/02/24 13:33 Resp 16 07/02/24 13:33 BP 111/71 07/02/24 13:33 Pulse Ox 97 07/02/24 13:33 FiO2 Intake & Output 07/01/24 07/02/24 07/02/24 18:59 06:59 18:59 Intake Total 590 Output Total 600 Balance -600 590 Weight 81.647 kg Intake: Oral 590 Output: Urine 600 Other: Voiding Method External Catheter Bedside Commode Bedside Commode # Voids 1 1 - Labs CBC & Chem 7: 07/02/24 04:15 07/02/24 04:15 Labs: Abnormal Lab Results - Last 24 Hours (Table) 07/02/24 07/02/24 Range/Units 04:15 04:15 RBC 3.47 L (4.10-5.20) X 10*6/uL Hgb 9.5 L (12.0-15.0) g/dL Hct 30.6 L (37.2-46.3) % MCHC 31.0 L (32.0-37.0) g/dL RDW 18.3 H (11.5-14.5) % MPV 9.1 L (9.5-12.2) FL BUN 7.1 L (9.0-27.0) mg/dL BUN/Creatinine Ratio 8.88 L (12.00-20.00) Ratio AST 36 H (13-35) U/L Total Protein 5.2 L (6.2-8.2) g/dL Albumin 3.4 L (3.8-4.9) g/dL Microbiology - Last 24 Hours (Table) 06/30/24 10:10 Blood Culture - Preliminary Blood
--- NOTE | 2024-07-02 15:33 | P.PN ---
Subjective Progress Note Date: 07/02/24 Hospital course: Patient is a pleasant 89-year-old female with a past medical history of CAD status post stenting, atrial fibrillation status post ablation on anti coagulation with Eliquis, chronic systolic heart failure with previous EF of 45%, hyperlipidemia, hypothyroidism, and GERD. She presented to the emergency department this morning status post mechanical fall resulting in pain to LUQ/flank, right knee pain and left ankle pain. Upon arrival to our facility, patient underwent evaluation in the emergency department. Vital signs upon arrival show blood pressure 121/82, heart rate 103, respiratory rate 16, temp 98.4 F, and SpO2 of 96% on room air. EKG was completed showing sinus mechanism with specific T wave abnormalities (unchanged from previous EKGs completed 01/31/23). Labs were completed and reviewed. CBC showing leukocytosis with WBC count of 12.2 and thrombocytosis with platelet count of 488. BMP showing slightly elevated renal function with BUN of 29, creatinine of 1.15, and GFR 43 with baseline creatinine of 1.3. Blood glucose 129. Initial lactic acid was 3.4. Magnesium 2.2. Liver profile showing elevated alkaline phosphatase of 131 otherwise normal findings. Amylase and lipase normal findings. Influenza A, influenza B, RSV, and COVID PCR negative. Multiple diagnostic tests were completed. No acute fractures or obvious injures noted. However pt was found to have moderate diverticulosis of the sigmoid colon with acute diverticulitis of the descending colon without abscess or free air. Patient was started on IV a ntibiotics with Rocephin and Flagyl and she was admitted under our services for acute diverticulitis. Consults placed to physical therapy secondary to patient's fall and inability to ambulate secondary to pain. PT/OT evaluated, patient remains unable to bear any weight on right lower extremity. Consult placed to orthopedic surgery for evaluation. Patient also with persistent reports of abdominal/left flank discomfort. General surgery consulted for recommendations. Diagnostic Imaging: -CT head was negative for acute intracranial process showing no acute bleed or mass effect revealing stable senescent changes. -CT cervical spine negative for acute process showing mild degenerative changes. -X-ray left foot showing moderate to marked osteopenia negative for acute fracture. -X-ray left ankle showing moderate osteopenia negative for acute fracture. -X-ray bilateral knees showing moderate osteopenia but negative for acute fracture or dislocation revealing normal-appearing partial bilateral knee replacements without loosening of hardware, and questionable small hematoma in the medial soft tissues of the left knee. -Chest x-ray negative for acute cardiopulmonary process. -X-ray left ribs negative for acute fracture or dislocation. -CT abdomen and pelvis without contrast showing moderate diverticulosis of the descending and sigmoid colon with acute diverticulitis of the descending colon without abscess or free air noted. Physical exam: Patient was evaluated at bedside. Patient reports improvement of abdominal pain and tolerating clear liquid diet, diet to be advanced to full liquids. She states increased swelling in left ankle and continued pain in right knee. Vital signs reviewed and stable. General: Nontoxic, no distress and appears stated age. Derm: Skin warm and dry, normal coloration for ethnicity. No bruising noted to left upper quadrant or flank or obvious injuries to lower extremities upon physical examination. Head: Atraumatic, normocephalic and symmetric. Eyes: EOM's intact, no lid lag, and anicteric sclera Mouth: no lip lesions, mucus membranes moist Cardiovascular: regular rate and rhythm with normal S1S2, no murmur, positive posterior tibial pulses bilaterally, and cap refill < 2 seconds. Lungs: Respirations even, regular, and unlabored on room air. Lungs CTA bilaterally, no rhonchi, no rales, no wheezing, and no accessory muscle usage. Abdominal: soft, minimal tenderness reported upon palpation of left upper qu adrant no guarding, no appreciable organomegaly Ext: ROM intact. No gross muscle atrophy, no edema, no contractures Neuro: Speech clear, face symmetrical and CN II-XII grossly intact with no noted focal neuro deficits Psych: Alert and oriented to person, place, time, and situation. Appropriate and pleasant affect. Assessment and Plan of Care: Acute diverticulitis of descending colon Dehydration secondary to diarrhea resulting from above Lactic acidosis, resolved after IV fluid hydration Transaminitis, suspected to be reactive and improving -Continue IV antibiotics with Rocephin 2 g every 24 hours and Flagyl 500 mg IVPB 3 times daily. -Symptomatic care and pain management with Tylenol 650 mg every 6 hours as needed for mild pain/fever, [place] 5-325 mg tablets every 6 hours as needed for moderate pain, and morphine 4 mg IVP every 4 hours as needed for severe pain. -Zofran 4 mg IVP every 8 hours as needed for nausea or vomiting. -Diet was advanced to full liquids, IV fluids discontinued. -General Surgery following, reviewed documentation in chart. Generalized weakness, secondary to dehydration Fall at home resulting in pain to right knee and left ankle and inability to ambulate -Imaging as above in HPI was reviewed and negative for acute process. -PT/OT evaluated, patient remains unable to bear weight on right lower extremity secondary to reports of severe pain in right knee and right groin. -Orthopedic surgery following. Order placed for CT right knee and walking boot for left foot. -Patient will likely need rehab placement. Discussed in detail with lead case manager. Patient has been accepted to [facility] for rehab. CAD status post stenting Paroxysmal atrial fibrillation -Cardiac medication regimen with aspirin 81 mg daily, Eliquis 5 mg twice daily, and Zetia 10 mg nightly. -Telemetry monitoring Chronic systolic heart failure, not in acute exacerbation -Hold torsemide at this time and continue with gentle IV fluid hydration with 0.9% normal saline at 100 cc/h. for the next 24 hours. If patient continues to have improvement of diarrhea over the next 24 hours may discontinue IV fluids and resume torsemide 10 mg daily. Hyperlipidemia -Continue Zetia 10 mg nightly. Hypothyroidism -Continue levothyroxine 12.5 mg daily. Data and imaging reviewed: Morning labs reviewed. CBC showing stable normocytic anemia with hemoglobin of 9.5. BMP unremarkable. Blood glucose 94. Magnesium 2.1. Liver profile showing near resolution of transaminitis with AST of 36, ALT of 43, and alkaline phosphatase of 125. Albumin 3.4. Vital signs reviewed and stable. Blood pressure 135/71, heart rate 81, respiratory rate 18, temp 97.6 F, and SpO2 of 98% on room air. CODE STATUS: Full code DVT prophylaxis: Eliquis Anticipated discharge date: Likely tomorrow morning Anticipated discharge place: [facility] on the [facility] Patient was seen independently by Nurse Practitioner. This document was prepared using Studio dictation software. Please allow for errors in senior telecommunications technician while rare they do occur. Pradeep Godfrey NP rendered care for this patient independently, reviewed the findings and plan as documented in the note above and agree with plan. I did not physically speak with or examine the patient on this date. Objective - Vital Signs Vital signs: Vital Signs Temp 98.7 F 07/02/24 01:30 Pulse 81 07/02/24 01:30 Resp 16 07/02/24 01:30 BP 98/60 07/02/24 01:30 Pulse Ox 93 L 07/02/24 01:30 FiO2 Intake & Output 07/01/24 07/02/24 07/02/24 18:59 06:59 18:59 Intake Total 590 Output Total 600 Balance -600 590 Weight 81.647 kg Intake: Oral 590 Output: Urine 600 Other: Voiding Method External Catheter Bedside Commode # Voids 1 - Labs CBC & Chem 7: 07/02/24 04:15 07/02/24 04:15 Labs: Abnormal Lab Results - Last 24 Hours (Table) 07/01/24 07/01/24 Range/Units 08:26 08:26 Hgb 10.4 L (11.4-16.0) gm/dL Hct 33.0 L (34.0-46.0) % RDW 16.6 H (11.5-15.5) % Sodium 136 L (137-145) mmol/L Potassium 3.3 L (3.5-5.1) mmol/L Glucose 127 H (74-99) mg/dL AST 61 H (14-36) U/L ALT 48 H (4-34) U/L Total Protein 5.9 L (6.3-8.2) g/dL Albumin 3.4 L (3.5-5.0) g/dL Microbiology - Last 24 Hours (Table) 06/30/24 10:10 Blood Culture - Preliminary Blood
[2024-07-03 07:37] VITALS: BP 121/66; PULSE 75; RESP 18; TEMP 98
[2024-07-03 08:35] LABS: HCT 30.5 % (37.2-46.3); HGB 9.5 g/dL (12.0-15.0); MCH 27.3 pg (27.0-32.0); MCHC 31.1 g/dL (32.0-37.0); MCV 87.6 FL (80.0-97.0); NRBC Per 100 WBC 0 X 10*3/uL (0.00-0.01); Platelet Count 319 X 10*3/uL (140-440); RBC 3.48 X 10*6/uL (4.10-5.20)
[2024-07-03] MEDS: ACETAMINOPHEN TAB 325 MG TAB PO PRN (08:56)
--- NOTE | 2024-07-03 11:07 | P.DS ---
Providers Date of admission: 06/30/24 10:35 Expected date of discharge: 07/03/24 Attending physician: Sonny Harry Consults: 07/01/24 10:56 Consult Physician Routine Consulting Provider: Roberto Carlos Mccarthy Consult Reason/Comments: fall imag neg however pt unable to bear any weight RLE d/t knee/groin pain Do you want consulting provider notified?: Yes 07/01/24 11:00 Consult Physician Routine Consulting Provider: Robson Burkett Consult Reason/Comments: Diverticulitis of descending colon Do you want consulting provider notified?: Yes Primary care physician[facility] Course: Discharge Diagnosis: Acute diverticulitis of descending colon. Patient completed 3-day course of IV antibiotics with Rocephin and Flagyl. She was evaluated by general surgery, recommending outpatient follow-up in 2 weeks for scheduling of possible outpatient colonoscopy. Patient's symptoms significantly improved. Diet was slowly advanced and she is tolerating well. Patient being discharged home on an additional 7-day course of oral antibiotics with Augmentin for total treatment course of 10 days. Patient to follow-up outpatient with PCP in 1 to 2 days and general surgeon in 2 weeks. Dehydration secondary to diarrhea resulting from above. Resolved. Lactic acidosis, resolved after IV fluid hydration Transaminitis, suspected to be reactive and improved Generalized weakness, secondary to dehydration Fall at home resulting in right knee sprain and left ankle sprain and inability to ambulate. Was evaluated by orthopedic surgery team and underwent CT of right knee and provided with a walking boot of the left foot. Patient diagnosed with right knee sprain and left ankle sprain. Patient will need to ambulate with walker only and need assistance. She was evaluated by PT OT recommending SNF placement. Patient discharged to [facility]. CAD status post stenting. Continue medication regimen with aspirin 81 mg daily, Eliquis 5 mg twice daily, and Zetia 10 mg nightly. Paroxysmal atrial fibrillation, Continue medication regimen with Eliquis 5 mg twice daily. Chronic systolic heart failure, not in acute exacerbation. Resume torsemide 10 mg daily. Hyperlipidemia. Continue Zetia 10 mg nightly. Hypothyroidism. Continue levothyroxine 12.5 mg daily. Hospital course: Patient is a pleasant 89-year-old female with a past medical history of CAD status post stenting, atrial fibrillation status post ablation on anticoagula tion with Eliquis, chronic systolic heart failure with previous EF of 45%, hyperlipidemia, hypothyroidism, and GERD. She presented to the emergency department this morning status post mechanical fall resulting in pain to LUQ/flank, right knee pain and left ankle pain. Upon arrival to our facility, patient underwent evaluation in the emergency department. Vital signs upon arrival show blood pressure 121/82, heart rate 103, respiratory rate 16, temp 98.4 F, and SpO2 of 96% on room air. EKG was completed showing sinus mechanism with specific T wave abnormalities (unchanged from previous EKGs completed 01/31/23). Labs were completed and reviewed. CBC showing leukocytosis with WBC count of 12.2 and thrombocytosis with platelet count of 488. BMP showing slightly elevated renal function with BUN of 29, creatinine of 1.15, and GFR 43 with baseline creatinine of 1.3. Blood glucose 129. Initial lactic acid was 3.4. Magnesium 2.2. Liver profile showing elevated alkaline phosphatase of 131 otherwise normal findings. Amylase and lipase normal findings. Influenza A, influenza B, RSV, and COVID PCR negative. Multiple diagnostic tests were completed. No acute fractures or obvious injures noted. However pt was found to have moderate diverticulosis of the sigmoid colon with acute diverticulitis of the descending colon without abscess or free air. Patient was started on IV antibiotics with Rocephin and Flagyl and she was admitted under our services for acute diverticulitis. Consults placed to physical therapy secondary to patient's fall and inability to ambulate secondary to pain. PT/OT evaluated, patient remains unable to bear any weight on right lower extremity. Consult placed to orthopedic surgery for evaluation. Patient also with persistent reports of abdominal/left flank discomfort. General surgery consulted for recommendations.Patient completed 3-day course of IV antibiotics with Rocephin and Flagyl. She was evaluated by general surgery, recommending outpatient follow-up in 2 weeks for scheduling of possible outpatient colonoscopy. Patient's symptoms significantly improved. Diet was slowly advanced and she is tolerating well. Patient being discharged home on an additional 7-day course of oral antibiotics with Augmentin for total treatment course of 10 days. Was also evaluated by orthopedic surgery team and underwent CT of right knee and provided with a walking boot of the left foot. Patient diagnosed with right knee sprain and left ankle sprain. Patient will need to ambulate with walker only and need assistance. She was evaluated by PT OT recommending SNF placement. Patient stable and being discharged to [facility]. Patient to follow-up outpatient with PCP in 1 to 2 days, orthopedic surgery in 1 week and general surgeon in 2 weeks. Diagnostic Imaging: -CT head was negative for acute intracranial process showing no acute bleed or mass effect revealing stable senescent changes. -CT cervical spine negative for acute process showing mild degenerative changes. -X-ray left foot showing moderate to marked osteopenia negative for acute fracture. -X-ray left ankle showing moderate osteopenia negative for acute fracture. -X-ray bilateral knees showing moderate osteopenia but negative for acute fracture or dislocation revealing normal-appearing partial bilateral knee replacements without loosening of hardware, and questionable small hematoma in the medial soft tissues of the left knee. -Chest x-ray negative for acute cardiopulmonary process. -X-ray left ribs negative for acute fracture or dislocation. -CT abdomen and pelvis without contrast showing moderate diverticulosis of the descending and sigmoid colon with acute diverticulitis of the descending colon without abscess or free air noted. Physical exam: Vital signs reviewed and stable. General: Nontoxic, no distress and appears stated age. Derm: Skin warm and dry, normal coloration for ethnicity. No bruising noted to left upper quadrant or flank or obvious injuries to lower extremities upon physical examination. Head: Atraumatic, normocephalic and symmetric. Eyes: EOM's intact, no lid lag, and anicteric sclera Mouth: no lip lesions, mucus membranes moist Cardiovascular: regular rate and rhythm with normal S1S2, no murmur, positive posterior tibial pulses bilaterally, and cap refill < 2 seconds. Lungs: Respirations even, regular, and unlabored on room air. Lungs CTA bilaterally, no rhonchi, no rales, no wheezing, and no accessory muscle usage. Abdominal: soft, minimal tenderness reported upon palpation of left upper quadrant no guarding, no appreciable organomegaly Ext: ROM intact. No gross muscle atrophy, no edema, no contractures Neuro: Speech clear, face symmetrical and CN II-XII grossly intact with no noted focal neuro deficits Psych: Alert and oriented to person, place, time, and situation. Appropriate and pleasant affect. A total of 35 minutes of time were spent preparing this complex discharge summary. Pt was discharged on 07/03/2024 at 11:05 AM. Patient was seen independently by Nurse Practitioner. This document was prepared using [employer] dictation software. Please allow for errors in drywall foreman while rare they do occur. Pradeep Godfrey NP rendered care for this patient independently, reviewed the findings and plan as documented in the note above. I did not physically speak with or examine the patient on this date. Patient Condition at Discharge: Stable Plan - Discharge Summary Discharge Rx Participant: Yes New Discharge Prescriptions: New Artificial Tears-Hypromellose [Artificial Tear Drops] 2 drops RIGHT EYE QID PRN ml PRN Reason: Eye Irritation Erythromycin Ophth Oint (1 gm) [Ilotycin Ophth Oint (1 gm)] 1 applic RIGHT EYE QID 7 Days #1 dispenser Acetaminophen Tab [Tylenol] 650 mg PO Q6HR PRN tab PRN Reason: Mild Pain Or Fever > 100.5 Amoxic-Pot Clav 875-125Mg [Augmentin 875-125] 1 tab PO BID 7 Days #14 tab HYDROcodone/APAP 5-325MG [[place] 5-325] 1 each PO Q6H PRN #12 tab PRN Reason: Moderate Pain (Scale 4 To 6) Continue Levothyroxine Sodium [Synthroid] 12.5 mcg PO DAILY Torsemide [Demadex] 10 mg PO DAILY Pantoprazole Sodium [Protonix] 20 mg PO BID Apixaban [Eliquis] 5 mg PO BID Ezetimibe [Zetia] 10 mg PO HS Nitroglycerin Sl Tabs [Nitrostat] 0.4 mg SUBLINGUAL Q5M PRN PRN Reason: Chest Pain Aspirin EC [Ecotrin Low Dose] 81 mg PO DAILY Potassium Chloride ER [K-Dur 10] 10 meq PO BID Discharge Medication List Apixaban [Eliquis] 5 mg PO BID 03/07/22 [History] Ezetimibe [Zetia] 10 mg PO HS 09/28/22 [History] Aspirin EC [Ecotrin Low Dose] 81 mg PO DAILY 01/18/23 [History] Levothyroxine Sodium [Synthroid] 12.5 mcg PO DAILY 01/18/23 [History] Nitroglycerin Sl Tabs [Nitrostat] 0.4 mg SUBLINGUAL Q5M PRN 01/18/23 [History] Pantoprazole Sodium [Protonix] 20 mg PO BID 06/30/24 [History] Potassium Chloride ER [K-Dur 10] 10 meq PO BID 06/30/24 [History] Torsemide [Demadex] 10 mg PO DAILY 06/30/24 [History] Acetaminophen Tab [Tylenol] 650 mg PO Q6HR PRN tab 07/03/24 [Rx] Amoxic-Pot Clav 875-125Mg [Augmentin 875-125] 1 tab PO BID 7 Days #14 tab 07/03/24 [Rx] Artificial Tears-Hypromellose [Artificial Tear Drops] 2 drops RIGHT EYE QID PRN ml 07/03/24 [Rx] Erythromycin Ophth Oint (1 gm) [Ilotycin Ophth Oint (1 gm)] 1 applic RIGHT EYE QID 7 Days #1 dispenser 07/03/24 [Rx] HYDROcodone/APAP 5-325MG [Casey 5-325] 1 each PO Q6H PRN #12 tab 07/03/24 [Rx] Follow up Appointment(s)/Referral(s): [facility] [NON-STAFF] - 1 Week [facility] [NON-STAFF] - 1 Week Oliver Quezada MD [REFERRING] - 1 Week Robson Burkett DO [Medical Doctor] - 2 Weeks Roberto Carlos Mccarthy MD [Medical Doctor] - 1 Week Ambulatory/Diagnostic Orders: Ambulatory Miscellaneous Order [MISC.AMB] Location: None Selected Patient Instructions/Handouts: Diverticulitis (DC), Diet for Stomach Ulcers and Gastritis (GEN), GERD (Gastroesophageal Reflux Disease) (DC)
[2024-07-03] MEDS: ERYTHROMYCIN 5 MG/GM OPHTH OINT 1 GM TUBE RIGHT EYE SCH (13:28)
--- NOTE | 2024-07-03 15:58 | P.PN ---
Subjective Progress Note Date: 07/03/24 SURGICAL PROGRESS NOTE CHIEF COMPLAINT: Fall HISTORY OF PRESENT ILLNESS: Surgical service is following in regards to diverticulitis. Patient reports improvement in her abdominal pain. She is tolerating low fiber diet. She is scheduled for discharge to [facility] today. PHYSICAL EXAM: VITAL SIGNS: Reviewed. GENERAL: Well-developed in no acute distress. ABDOMEN: Soft. Nondistended. Minimal diffuse tenderness. More tender in the left upper quadrant NEUROLOGIC: Alert and oriented. Cranial nerves II through XII grossly intact. ASSESSMENT: 1. Mild diverticulitis of the descending colon improving with antibiotic management 2. Abdominal pain 3. Fall PLAN: -Patient can be discharged from surgical standpoint -Discharge antibiotics per medicine service Physician Cashier And Salesperson note has been reviewed by physician. Signing provider agrees with the documented findings, assessment, and plan of care. Attestation Patient seen and examined at bedside. Abdominal pain improving. Advance diet. No plan for acute surgical intervention. Surgically stable for discharge. Anaya Amor DO Objective - Vital Signs Vital signs: Vital Signs Temp 98.0 F 07/03/24 07:34 Pulse 75 07/03/24 07:34 Resp 18 07/03/24 07:34 BP 121/66 07/03/24 07:34 Pulse Ox 97 07/03/24 01:24 FiO2 Intake & Output 07/02/24 07/03/24 07/03/24 18:59 06:59 18:59 Intake Total 540 Balance 540 Intake: Oral 540 Other: Voiding Method Bedside Commode Bedside Commode Bedside Commode # Voids 1 1 1 - Labs CBC & Chem 7: 07/03/24 05:05 07/02/24 04:15 Labs: Abnormal Lab Results - Last 24 Hours (Table) 07/03/24 Range/Units 05:05 RBC 3.48 L (4.10-5.20) X 10*6/uL Hgb 9.5 L (12.0-15.0) g/dL Hct 30.5 L (37.2-46.3) % MCHC 31.1 L (32.0-37.0) g/dL RDW 18.0 H (11.5-14.5) % MPV 9.0 L (9.5-12.2) [place] Microbiology - Last 24 Hours (Table) 06/30/24 10:10 Blood Culture - Preliminary Blood
== END 2024-07-03 14:20 | DRG 392 ==
LOC: EC 06:37 → 5NMEDONC 10:35
PROVIDERS: ADMIT Student in an Organized Health Care Education/Training Program; ATTEND Student in an Organized Health Care Education/Training Program
DX: K57.32 Diverticulitis of large intestine without perforation or abscess without bleeding (principal); I50.22 Chronic systolic (congestive) heart failure; E87.20 Acidosis, unspecified; I13.0 Hypertensive heart and chronic kidney disease with heart failure and stage 1 through stage 4 chronic kidney disease, or unspecified chronic kidney disease; E03.9 Hypothyroidism, unspecified; E78.5 Hyperlipidemia, unspecified; I25.10 Atherosclerotic heart disease of native coronary artery without angina pectoris; S83.91XA Sprain of unspecified site of right knee, initial encounter; M85.80 Other specified disorders of bone density and structure, unspecified site; S93.602A Unspecified sprain of left foot, initial encounter; M17.0 Bilateral primary osteoarthritis of knee; D75.839 Thrombocytosis, unspecified; E86.0 Dehydration; R74.01 Elevation of levels of liver transaminase levels; I48.0 Paroxysmal atrial fibrillation; K21.9 Gastro-esophageal reflux disease without esophagitis; M85.872 Other specified disorders of bone density and structure, left ankle and foot; N18.30 Chronic kidney disease, stage 3 unspecified; Y93.01 Activity, walking, marching and hiking; W18.30XA Fall on same level, unspecified, initial encounter; Z95.5 Presence of coronary angioplasty implant and graft; Z96.653 Presence of artificial knee joint, bilateral; Z79.890 Hormone replacement therapy; Z88.8 Allergy status to other drugs, medicaments and biological substances; Z79.82 Long term (current) use of aspirin; Z86.711 Personal history of pulmonary embolism
CPT/HCPCS: 36415; 70450; 72125; 74176; 80053; 82150; 83605; 83690; 83735; 85025; 85027; 87040; 87636; 93005; 96361; 96365; 96366; 96368; 96375; 96376; 99285